=== PATIENT | female | born 1980 | race Caucasian/White ===

== ENCOUNTER → 2017-10-25 08:13 | Outpatient (CLI) | payer OTHER, SELFPAY ==
--- NOTE | 2017-10-25 08:19 | RAD_ITS ---
STUDY: X-RAY - RIGHT KNEE REASON FOR EXAM: Female, 36 years old. Pain following a twisting injury. TECHNIQUE: 3 view(s) of the knee. COMPARISON: None. FINDINGS: Normal visualized distal femur. Normal visualized proximal tibia and fibula. Normal proximal tibiofibular articulation. Normal medial femorotibial compartment. Normal lateral femorotibial compartment. Normal patellofemoral articulation. The soft tissue structures are unremarkable. RAD/Knee 3 Views IMPRESSION: Normal x-ray examination of the knee. Electronically Signed: Kumar Washington MD at 12:06 EST Tel [phone], Service support ,
== END ==
PROVIDERS: Family Provider Family Medicine; PCP Family Medicine; Visit Provider Physician Assistant
DX: S86.911A Strain of unspecified muscle(s) and tendon(s) at lower leg level, right leg, initial encounter (principal); X58.XXXA Exposure to other specified factors, initial encounter
CPT/HCPCS: 73562

== ENCOUNTER → 2017-11-06 09:07 | Outpatient (CLI) | payer OTHER, SELFPAY ==
--- NOTE | 2017-11-06 09:10 | MRI_ITS ---
STUDY: MRI RIGHT KNEE REASON FOR EXAM: Pain and decreased range of motion for 1.5 weeks, right knee injury. TECHNIQUE: Standardized fat and water weighted pulse sequences were obtained in all 3 orthogonal planes. COMPARISON: Radiographs 10/25/2017. FINDINGS: There is very mild intrasubstance myxoid degeneration of the posterior horn of the medial meniscus without discrete medial meniscal tear. Normal hyaline cartilage of the medial femorotibial compartment. Normal medial femoral condyle and tibial plateau. There is a mild sprain of the superficial fibers of the proximal medial collateral ligament (T2 coronal images 16, 17). Normal distal semimembranosus, gracilis and semitendinosus tendons. Normal lateral meniscus. Normal hyaline cartilage of the lateral femorotibial compartment. There is a small bone contusion of the posterior aspect of the lateral tibial plateau (T2 sagittal images 8-10). Normal proximal tibiofibular articulation. Normal lateral collateral (fibular) ligament. Normal popliteus tendon. Normal biceps femoris tendon. There is complete tear of the mid and anterior cruciate ligament (T2 sagittal image 13; series 8 image 12). Normal posterior cruciate ligament (PCL). Normal congruent patellofemoral articulation. Normal hyaline cartilage of the patellofemoral compartment. Normal medial and lateral patellar retinaculum. Normal quadriceps tendon. Normal patellar tendon. Normal Hoffa's fat pad. There is a moderate-sized joint effusion. There is a small popliteal cyst (T2 sagittal images 16-20). The otherwise visualized osseous structures are unremarkable. MRI/Lower Ext Joint Only (Routine) IMPRESSION: Anterior cruciate ligament tear. Mild medial collateral ligament sprain. Small bone contusion of the lateral tibial plateau. Joint effusion. Small popliteal cyst. Electronically Signed: Carlos Ladd MD at 10:17 EST Tel , Service support ,
== END ==
PROVIDERS: Family Provider Family Medicine; PCP Family Medicine; Visit Provider Physician Assistant
DX: S83.91XA Sprain of unspecified site of right knee, initial encounter (principal); X58.XXXA Exposure to other specified factors, initial encounter
CPT/HCPCS: 73721

== ENCOUNTER 2017-12-21 08:30 | Outpatient (RCR) | payer OTHER, SELFPAY ==
--- NOTE | 2017-11-19 07:37 | HP.PTEVAL_ITS ---
Patient's Visit Information EVENS RINCON is a 36 year old F referred to Physical Therapy by DO WILLIAM Plascencia with a diagnosis of R knee sprain. Date of Evaluation: 11/16/17 Physical Therapist: Alejandro Fowler - Visit Plan Frequency: 2-3x /Week Duration: 4-6 Weeks Plan: Start with ROM focus. Progress to core, hip, quad, HS strengthening. Once tolerating progress to functional strengthening as tolerated. May use vaso and IFC to aid with edema and pain tolerance. - Subjective Subjective: Pt. is here today for her initial evaluation with diagnosis of R knee sprain. She did have MRI that showed ACL tear and MCL sprain. Pt. reports she was at work and was doing some 180deg jumps and and landed and a felt pop. She had immediate had pain and edema. Pt. reports she has been going to work with use of a TROM brace, but unlocked and has been tolerating work at reduced pace and is limited with certain mobilities. Pt. has increased pain with walking , stairs, twisting, attempting to straighten out her leg. Decreased pain: ice and rest. Pt. denies N/T. Pt. is hopeful to increase strength in order to hopefully not need surgery. Pt. is to follow up with surgeon in 4 weeks to determine best course of action, but is to work on ROM and strength in order to have best possible outcomes. 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 Pt. enjoys running, snowboarding, and playing with her children and would like to get back to these activities without limitations. - Pain R knee Pain Intensity (Out of 10): 3 Pain Intensity Range: 1, 6 - Objective POSTURE: Pt. lacks TKE in stance of RLE. Pt. has slight increase in wt. shift to L side in stance. Normal hip height bilaterally. No valgus/varus positioning of bilateral knees. PALPATION: Pt. has mild increase in symptoms to medial knee joint line and at MCL. Pt. has marked edema throughout knee, non pitting. Pt. has tenderness at popliteal fossa on medial side. NEUROLOGICAL: Pt. has normal sensation throughout bilateral LEs. Pt. has 2+ achilles and patellar DTR bilaterally. Pt. is able to rise on heels and toes without LOB, but did report mild increase in posterior knee pain with raising on toes secondary to TKE on RLE. ROM: L knee- 0-0-140deg. R knee 0-5-107deg. Pt. reports increase in symptoms with end ranges of motions. Empyt end feels noted secondary to pain. Pt. has normal hip ROM bilaterally. MMT: LLE- ankle/knee 5/5 throughout; hip- flexiono 5/5, abd 4+/5, ext 5-/5. RLE- ankle 5/5 throughout; knee- ext 4/5 mild increase NW, flexion 4+/5; hip- flexion 4+/5, abd 4/5, ext 4/5. Core strength- fair. GAIT: Pt. ambulates without AD, but lack TKE on RLE and has reduced knee flexion during swing phase. Pt. has antalgic like pattern during R stance phase with R lateral trunk lean. STAIRS: Pt. is able to negotiate with 2 HR with reciprocal pattern, but has increased pain with descending and hip hiking on R side to achieve motion. Pt. has increased pain with loading RLE during descending. - Goals Goal 1:: Pt. to be I with HEP. Goal Time Frame: 4-6 Weeks Goal 2:: Pt. to have increased ROM of R knee to 0-0-135deg. allowing for increased tolerance to all functional mobility. Goal Time Frame: 4-6 Weeks Goal 3:: Pt. to have increased RLE and core strength by 1/2 grade of all effected musculature to reduce stress applied to R knee joint with all functional and work activities. Goal Time Frame: 4-6 Weeks Goal 4:: Pt. to have normalized gait pattern without reports of increased pain allowing for increased quality of life. Goal Time Frame: 4-6 Weeks Goal 5:: Pt. to resume all work and recreational activities without increase in symptoms. Goal Time Frame: 4-6 Weeks Goal 6:: Pt. to negotiate steps with 1 HR with reciprocal pattern without increase in symptoms. Goal Time Frame: 4-6 Weeks - Rehabilitation Potential Physical Therapy Diagnosis: Pt. has confirmed MRI stating R ACL tear. Pt. has signs and symptoms consistent with hypomobility, weakness, difficulty with gait , and increased pain after R ACL tear. Pt. would benefit from PT to increase ROM , strength, normalized gait pattern, decrease pain and progress back to functional activities. Rehabilitation Potential: Fair - Anticipated Interventions Patient/Client Instruction: Educate patient on: Condition, Plan of Care, Risk Factors, Benefits of Fitness Program For the Purpose of:: To improve safety, To improve health and function, To foster healthy habits, To improve decision making, To facilitate caregiver knowledge, To improve self management, To prevent re-injury, To improve ability to perform tasks related to life management, To improve tolerance to ADL's Therapeutic Exercise to Include: Strength training, Power training, Endurance training, Balance training, Postural training, Flexibilty training, Gait and locomotor training, Passive ROM, Active ROM For the Purpose of:: To decrease pain, To decrease swelling/inflammation, To increase ROM, To improve nutrient delivery to tissue, To increase oxygenation perfusion, To improve muscle performance and motor function, To improve ability of physical actions for home/community/work/leisure, To improve health of tissue , To decrease soft tissue restriction, To increase flexibility/ROM, To improve balance Manual Therapy Techniques to Include: Mobilization, Passive ROM, Functional dry needling, Soft tissue mobilization For the Purpose of:: To decrease pain, To decrease swelling/inflammation, To increase ROM, To improve nutrient delivery to tissue IF ES: Yes Cryotherapy (ice pack, ice massage): Yes Vasopneumatic device: Yes For the Purpose of:: To decrease pain, To decrease swelling/inflammation, To increase ROM, To improve nutrient delivery to tissue Thank you for the opportunity to evaluate your patient. For Medicare and Medicare HMO plans, please review the plan of care and approve it. It will need to be FAXED BACK to us at [phone] for Medicare purposes. Please let me know if there are questions or concerns regarding this plan of care. Physician Signature: Date:
--- NOTE | 2017-12-21 10:45 | HP.PTDCSUM ---
HP - PT D/C Summary It has been my pleasure to treat EVENS RINCON under orders from Moses Jordan DO, for the diagnosis of R knee sprain for a total of 12 visit(s). Discharge Date: 12/21/17 Please see the following information for a summary of their discharge status. - Subjective Subjective: Pt. reports I am feeling a lot better, but I can still tell that it is not right. Pt. reports continues report increased pain with squating, work activities, jumping, crouching, playing with children at work. - Pain R knee Pain Intensity (Out of 10): 0 - Overall Improvement % Improvement: 50 - Objective Objective/Function: ROM: R knee 0-0-132deg. MMT- 5/5 throughout R knee and hip musculature. Pt. has normalized gait pattern. Pt. is able to negotiate steps without HR, but does have increased pain with controlled eccentric lowering. Increased pain with squating greater than 90deg, lunge results in increased medial joint line pain. - Goals Goal 1:: Pt. to be I with HEP. Goal Progress: Goal Met Goal 2:: Pt. to have increased ROM of R knee to 0-0-135deg. allowing for increased tolerance to all functional mobility. Goal Progress: Progressing Goal 3:: Pt. to have increased RLE and core strength by 1/2 grade of all effected musculature to reduce stress applied to R knee joint with all functional and work activities. Goal Progress: Goal Met Goal 4:: Pt. to have normalized gait pattern without reports of increased pain allowing for increased quality of life. Goal Progress: Goal Met Goal 5:: Pt. to resume all work and recreational activities without increase in symptoms. Goal Progress: Progressing Goal 6:: Pt. to negotiate steps with 1 HR with reciprocal pattern without increase in symptoms. Goal Progress: Progressing - Plan Plan: Pt. to be DC to HEP and physician. Pt. contiunes to have difficulty with any agility life exercises/movements. She continues to have difficulty with work and recreational activities. Pt. had improved strength, but maintains some limitations. - D/C Information Discharge Comments: Pt. will be DC from PT at this point in time. Pt. has improved strength and ROM, but does have increased symptoms with deep squating, lunging, jumping, running and descending steps. 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 Pt. will be DC back to physician at this point in time. If there are questions or concerns regarding this patient's physical therapy, please feel free to call me at [phone]. Thank you for the referral of this patient. Sincerely, Alejandro Fowler
== END 2017-12-21 19:00 | disposition home or self-care (01) ==
LOC: PT 08:30
PROVIDERS: Family Provider Family Medicine; PCP Family Medicine; Visit Provider Orthopaedic Surgery
DX: S83.91XD Sprain of unspecified site of right knee, subsequent encounter (principal)
CPT/HCPCS: 97110; 97161

== ENCOUNTER 2018-07-18 07:00 | Outpatient (RCR) | payer OTHER, SELFPAY ==
--- NOTE | 2018-04-10 08:53 | HP.PTEVAL_ITS ---
Patient's Visit Information EVENS RINCON is a 37 year old F referred to Physical Therapy by Elizabeth Cruz with a diagnosis of R ACL reconstruction. Date of Evaluation: 04/08/18 Physical Therapist: Alejandro Fowler - Visit Plan Frequency: 3x /Week Duration: 6 Weeks Plan: Start with quad activation strengthening, progressing to CKC exercises ( no distal load with OKC exercises).Increased R knee ROM, decrease edema (may use vaso). May use stim if needed to increase quad activition. Progress to quad activation in CKC as tolerated. Progress per protocol (using shah as tolerated). - Subjective Subjective: Pt. is here today for her initial evaluation with diagnosis of R ACL reconstruction. DOS: 03/28/18. Pt. did report having a meniscal debridement and what she described as a microfracture procedure. Pt. arrives today with TROM brace locked in extension, but no crutches. Pt. reports being WBing as tolerated. Pt. reports overall having minimal pain, 1-2/10 pain with walking, no pain at rest. She has slight lateral numbness at lateral knee, expected. Pt. has been doing quad sets and using her CPM as indicated, upto 115deg of knee flexion currently. Pt. is also icing frequently. 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 Pt. is hopeful to get back to all recreational and work activities without limitations. - Pain R knee Pain Intensity (Out of 10): 2 Pain Intensity Range: 0, 2 - Objective POSTURE: Pt. has increased L lateral wt. shift in stance. Pt. does not achieve TKE in stnace on RLE. Pt. has normal LEODAN and noraml iliac crest heights. No valgus/varus postioning of R knee. PALPATION: Pt. has well healing incision. No redness or signs of infection. Pt. has negative lucas's sign in bilateral calves. Pt. has marked edema in RLE. GIRTH MEASUREMENTS: RLE 4in above patella- 44cm, mid pattella- 40cm, tibial tub- 38 1/2cm; LLE- 4 in above patella- 45 1/2 , mid patella- 36cm, tibial tub- 35 cm. NEUROLOGICAL: Pt. has normal sensation to RLE except for lateral knee, but is expected. Pt. has normal neuro testing otherwise. ROM: L knee 0-0-138deg. R knee- AROM 0-6-89deg; PROM 0-3-98deg. Pt. reports increased pain at both end ranges of PROM. Pt. has normal HS lenght bilaterally and normal hip ROM bilaterally. MMT: LLE- 5/5 throughout, except 4+ /5 hip abduction and extension. RLE- ankle 5/5 throughout; knee- flexion 4-/5, ext- Pt. has ~20-15 deg lag with SLR with 2 reps.; hip- flexion 3/5, abd 3/5, ext 4/5. GAIT: Pt. is able to ambulate without AD. Pt. is hesitant to ambulate without brace, reports being fearful of hyper ext (likly quad weakness). Pt. has minimal knee fleixon during swing phase, lacks TKE during stance phase; increased R lateral lean during R stance phase. STAIRS: completed with step to pattern, loading LLE only. - Goals Goal 1:: Pt. to be I with HEP. Goal Time Frame: 4-6 Weeks Goal 2:: Pt. to have decreased edema in R knee indicating by symmetrical patellar girth side to side. Goal Time Frame: 4-6 Weeks Goal 3:: Pt. to complete 20 SLR without quad lag indicating increased quad strength and stability. Goal Time Frame: 2-4 Weeks Goal 4:: Pt. to have incerased R knee ROM to 0-0-125deg without increase in pain. Goal Time Frame: 2-4 Weeks Goal 5:: Pt. to ambulate with normalized gait pattern without increase in symptoms and proper knee stability. Goal Time Frame: 4-6 Weeks Goal 6:: Pt. to sleep throughout the night without symptoms. Goal Time Frame: 2-4 Weeks - Rehabilitation Potential Physical Therapy Diagnosis: Pt. has signs and symptoms consistent with R ACL reconstruction and subsequent R knee hypombility, RLE weakness, increased pain, and difficulty with gait. Pt. would benefit from PT to work on above limitations eventually progressing to functional strength and back to work activities. Rehabilitation Potential: Excellent - Anticipated Interventions Patient/Client Instruction: Educate patient on: Condition, Plan of Care, Risk Factors, Benefits of Fitness Program For the Purpose of:: To assume or resume ADL's, To reduce risk of recurrence, To improve safety, To improve health and function, To foster healthy habits, To improve decision making, To facilitate caregiver knowledge, To improve self management, To prevent re-injury, To improve ability to perform tasks related to life management, To improve tolerance to ADL's Therapeutic Exercise to Include: Strength training, Power training, Postural training, Flexibilty training, Gait and locomotor training, Passive ROM, Active ROM, Dynamic Lumbar Stabilization For the Purpose of:: To decrease pain, To increase ROM, To improve nutrient delivery to tissue, To increase oxygenation perfusion, To improve muscle performance and motor function, To improve ability to perform ADL's, To decrease soft tissue restriction, To increase flexibility/ROM, To improve endurance, To improve balance, To improve safety with gait IF ES: Yes Cryotherapy (ice pack, ice massage): Yes Vasopneumatic device: Yes For the Purpose of:: To decrease pain, To decrease swelling/inflammation, To increase ROM Thank you for the opportunity to evaluate your patient. For Medicare and Medicare HMO plans, please review the plan of care and approve it. It will need to be FAXED BACK to us at [phone] for Medicare purposes. Please let me know if there are questions or concerns regarding this plan of care. Physician Signature: Date:
--- NOTE | 2018-07-18 08:42 | HP.PTDCSUM_ITS ---
HP - PT D/C Summary It has been my pleasure to treat EVENS RINCON under orders from Elizabeth Cruz, for the diagnosis of R ACL reconstruction for a total of 40 visit(s). Discharge Date: 07/18/18 Please see the following information for a summary of their discharge status. - Subjective Subjective: Pt. reports I am doing really well. Pt. reports being 85% better overall. She is able to run in straight planes without issues. Pt. reports being HEP compliant. Pt. is back to work without issues. She reports no pain, except some mild discomfort with eccentric single leg loading. Medial joint soreness is where she has her tenderness. - Pain R knee Pain Intensity (Out of 10): 0 - Overall Improvement % Improvement: 85 - Objective Objective/Function: ROM- R knee 0-0-138deg no pain. MMT- 5/5 throughout, except knee ext 5-/5. hip 5/5 throughout. GAIT: Pt. has normal gait pattern. Pt is able to run without pain, but does have slight antalgic pattern during end of R stance phase prior to toe off. STAIRS: normal without issues. Jumping: Pt. is able to complete depth jumps for distance and height without issues. Pt. is less confident with SL landing. Pt. has 22 inch different with SL hop test. SQUAT- normal mechanics without wt. shifting. symmetrical stance. Pt. reprots no pain. - Goals Goal 1:: Pt. to be I with HEP. Goal Progress: Goal Met Goal 2:: Pt. to have decreased edema in R knee indicating by symmetrical patellar girth side to side. Goal Progress: Goal Met Goal 3:: Pt. to complete 20 SLR without quad lag indicating increased quad strength and stability. Goal Progress: Goal Met Goal 4:: Pt. to have incerased R knee ROM to 0-0-125deg without increase in pain. Goal Progress: Goal Met Goal 5:: Pt. to ambulate with normalized gait pattern without increase in symptoms and proper knee stability. Goal Progress: Goal Met Goal 6:: Pt. to sleep throughout the night without symptoms. Goal Progress: Goal Met - Plan Plan: Pt. to be DC to HEP at this point in time. - D/C Information Discharge Comments: Pt. has met all goals with PT. Pt. is back to work without issues. She is running in straight planes without issues and has full strenght of her RLE, except 5-/5 with knee ext. Pt. is integrating light plyometric activities as tolerated. Pt. has great squat and jump mechanics. Pt. is to continue to work on eccentric strengthening of her quad and to increased glute stability with plyo exercises. Pt. did very well and will be DC from PT at this point in time. If there are questions or concerns regarding this patient's physical therapy, pl maurizio feel free to call me at [phone]. Thank you for the referral of this patient. Sincerely, Alejandro Fowler
== END 2018-07-18 19:00 | disposition home or self-care (01) ==
LOC: PT 07:00
PROVIDERS: Family Provider Family Medicine; PCP Family Medicine
DX: S83.511D Sprain of anterior cruciate ligament of right knee, subsequent encounter (principal)
CPT/HCPCS: 97016; 97110; 97140; 97161; 97530

== ENCOUNTER → 2020-05-27 13:48 | Outpatient (CLI) | payer OTHER, SELFPAY ==
[2020-05-27 16:43] LABS: CRP < 2.90 mg/L (0.0-3.0); Rheumatoid Factor < 10.0 IU/mL (<15)
[2020-05-27 17:00] LABS: Erythrocyte Sedimentation Rate < 1 mm/hr (0-20)
[2020-05-30 20:37] LABS: CCP IgG Antibodies 3 units (0-19)
[2020-05-31 20:56] LABS: ANTINUCLEAR ANTIBODIES DIRECT Negative (Negative)
== END ==
PROVIDERS: PCP Family Medicine; Visit Provider Family Medicine
DX: M79.10 Myalgia, unspecified site (principal); M25.50 Pain in unspecified joint
CPT/HCPCS: 36415; 85652; 86038; 86140; 86200; 86225; 86235; 86431

== ENCOUNTER 2020-08-17 13:37 | Outpatient (RCR) | payer OTHER, SELFPAY | END 2020-09-09 23:59 | LOC: EMPH 13:37 | PROVIDERS: PCP Family Medicine; Referring Provider Family Medicine Geriatric Medicine; Visit Provider Family Medicine Geriatric Medicine | DX: Z03.818 Encounter for observation for suspected exposure to other biological agents ruled out (principal) | CPT/HCPCS: 87426 ==

== ENCOUNTER 2020-11-26 09:10 | Outpatient (RCR) | payer OTHER, SELFPAY | END 2020-12-08 23:59 | LOC: EMPH 09:10 | PROVIDERS: PCP Family Medicine; Referring Provider Family Medicine Geriatric Medicine; Visit Provider Family Medicine Geriatric Medicine | DX: Z03.818 Encounter for observation for suspected exposure to other biological agents ruled out (principal) | CPT/HCPCS: 87426 ==

== ENCOUNTER 2021-09-01 14:15 | Outpatient (RCR) | payer OTHER, SELFPAY | END 2021-09-09 23:59 | LOC: EMPH 14:15 | PROVIDERS: PCP Family Medicine; Referring Provider Family Medicine Geriatric Medicine; Visit Provider Family Medicine Geriatric Medicine | DX: Z03.818 Encounter for observation for suspected exposure to other biological agents ruled out (principal) | CPT/HCPCS: 87426 ==

== ENCOUNTER → 2022-05-29 | Outpatient (CLI) | payer OTHER, SELFPAY ==
[2022-06-06 10:39] LABS: HPV APTIMA, High Risk Negative (Negative)
== END | disposition home or self-care (01) ==
LOC: LABSPEC 05-30 06:21
PROVIDERS: PCP Family Medicine; Visit Provider Nurse Practitioner Women's Health
DX: Z01.419 Encounter for gynecological examination (general) (routine) without abnormal findings (principal)
CPT/HCPCS: 87624; 88175; G0145

== ENCOUNTER → 2022-06-08 | Outpatient (CLI) | payer OTHER, SELFPAY ==
--- NOTE | 2022-06-08 11:49 | BI_ITS ---
MAMMOGRAPHY - BILATERAL SCREENING REASON FOR EXAM: Female, 41 years old. Routine annual screening examination. PERTINENT HISTORY: Non-contributory. TECHNIQUE: Digital bilateral breast eliseo (3D mammographic acquisition) in the CC and MLO projections. 2-D mediolateral oblique (MLO) and craniocaudad (CC) views of both breasts were obtained. CAD: Full Field Digital Mammography with Computer Added Detection was performed. COMPARISON: None. Baseline examination. FINDINGS: Breast Composition: The breasts are heterogeneously dense, which may obscure small masses. There are no dominant masses or suspicious calcifications. I suspect a 7 mm x 7 mm well-defined nodule in the deep central aspect of the left breast. Correlation with ultrasound is recommended. No other significant abnormalities are identified. BI/SCRN MAMM (CAD)W/ELISEO BILAT IMPRESSION: I suspect a 7 mm x 7 mm well-defined nodule in the deep central aspect of the left breast. Correlation with ultrasound is recommended. ASSESSMENT CATEGORY: BIRADS Category 0: Incomplete. Need additional imaging evaluation. A letter regarding these results will be sent to the patient by the facility within 30 days. Approximately 10% of breast cancers are not detected by mammography. A normal mammogram should not delay biopsy of a clinically suspicious abnormality. [id number] Electronically Signed: Kumar Washington MD at 12:48 EDT ,
== END | disposition home or self-care (01) ==
LOC: OPBI 11:48
PROVIDERS: PCP Family Medicine; Visit Provider Nurse Practitioner Women's Health
DX: Z12.31 Encounter for screening mammogram for malignant neoplasm of breast (principal)
CPT/HCPCS: 77063; 77067

== ENCOUNTER → 2022-06-15 | Outpatient (CLI) | payer OTHER, SELFPAY ==
--- NOTE | 2022-06-15 12:17 | US_ITS ---
STUDY: ULTRASOUND BREAST - LEFT REASON FOR EXAM: Female, 41 years old. Abnormal screening mammogram. TECHNIQUE: Axial and longitudinal images of the LEFT breast were performed with a high resolution ultrasound transducer. # OF IMAGES: 8 COMPARISON: Comparison is made with prior examination dated 06/08/2022. FINDINGS: LEFT Breast: The mammographic and amount to correspond to a 6 mm x 3 mm x 7 mm cyst at the 4 o''clock position of the breast at 3 cm from the nipple. US/Breast Limited Unilateral IMPRESSION: The mammographic abnormality corresponds to a 6 mm x 7 mm x 3 mm cyst at the 4 o''clock position of the breast at 3 cm from the nipple. ASSESSMENT CATEGORY: BIRADS Category 2: Benign. A letter regarding these results will be sent to the patient by the facility within 30 days. Electronically Signed: Kumar Washington MD at 9:41 EDT ,
== END | disposition home or self-care (01) ==
LOC: OPUS 12:16
PROVIDERS: PCP Family Medicine; Visit Provider Nurse Practitioner Women's Health
DX: R92.8 Other abnormal and inconclusive findings on diagnostic imaging of breast (principal)
CPT/HCPCS: 76642

== ENCOUNTER → 2023-04-30 | Outpatient (CLI) | payer OTHER, SELFPAY ==
--- NOTE | 2023-04-30 15:10 | RAD_ITS ---
EXAM: XR LEFT KNEE COMPLETE, 4 OR MORE VIEWS CLINICAL INDICATION: PAIN TECHNIQUE: Four or more views of the left knee. COMPARISON: No relevant prior studies available. FINDINGS: BONES/JOINTS: Unremarkable. No acute fracture. No subluxation. Normal alignment. Preservation of the joint space. No sclerotic or destructive changes observed. SOFT TISSUES: Unremarkable. No soft tissue swelling or gas. No radiopaque foreign body. RAD/Knee 4 or More Views IMPRESSION: Negative left knee x-rays. Electronically Signed: Trevor Kwok MD at 23:27 EDT ,
== END | disposition home or self-care (01) ==
PROVIDERS: PCP Family Medicine; Referring Provider Family Medicine; Visit Provider Family Medicine
DX: M25.562 Pain in left knee (principal)
CPT/HCPCS: 73564

== ENCOUNTER → 2023-06-29 | Outpatient (CLI) | payer OTHER, SELFPAY ==
--- NOTE | 2023-06-29 10:11 | BI_ITS ---
MAMMOGRAPHY - BILATERAL SCREENING REASON FOR EXAM: Female, 42 years old. Routine annual screening examination. PERTINENT HISTORY: Non-contributory. TECHNIQUE: Digital bilateral breast eliseo (3D mammographic acquisition) in the CC and MLO projections. 2-D mediolateral oblique (MLO) and craniocaudad (CC) views of both breasts were obtained. CAD: Full Field Digital Mammography with Computer Added Detection was performed. COMPARISON: Comparison is made with prior study dated June 08, 2022. FINDINGS: Breast Composition: The breasts are heterogeneously dense, which may obscure small masses. There are no dominant masses or suspicious calcifications. Stable 7 mm x 7 mm well-defined nodule in the deep central aspect of the left breast. Prior sonogram demonstrated this nodule to be a small cyst. No other significant abnormalities are identified. There has been no significant change since the prior study. BI/SCRN MAMM (CAD)W/ELISEO BILAT IMPRESSION: Stable bilateral screening mammogram. Yearly follow-up mammogram recommended. (A) ASSESSMENT CATEGORY: BIRADS Category 2: Benign. A letter regarding these results will be sent to the patient by the facility within 30 days. Approximately 10% of breast cancers are not detected by mammography. A normal mammogram should not delay biopsy of a clinically suspicious abnormality. [id number] Electronically Signed: Kumar Washington MD at 11:11 EDT ,
== END | disposition home or self-care (01) ==
LOC: OPBI 10:10
PROVIDERS: PCP Family Medicine; Referring Provider Nurse Practitioner Women's Health; Visit Provider Nurse Practitioner Women's Health
DX: Z12.31 Encounter for screening mammogram for malignant neoplasm of breast (principal)
CPT/HCPCS: 77063; 77067

== ENCOUNTER → 2024-06-30 | Outpatient (CLI) | payer OTHER, SELFPAY ==
--- NOTE | 2024-06-30 07:46 | BI_ITS ---
MAMMOGRAPHY - BILATERAL SCREENING REASON FOR EXAM: Female, 43 years old. Routine annual screening examination. PERTINENT HISTORY: Non-contributory. TECHNIQUE: Digital bilateral breast eliseo (3D mammographic acquisition) in the CC and MLO projections. 2-D mediolateral oblique (MLO) and craniocaudad (CC) views of both breasts were obtained. CAD: Full Field Digital Mammography with Computer Added Detection was performed. COMPARISON: Comparison is made with prior study June 29, 2023 and June 08, 2022. FINDINGS: Breast Composition: The breasts are heterogeneously dense, which may obscure small masses. There is a 6.9 mm x 7.1 mm well-defined nodule in the central the aspect of the left breast. There is also evidence of a 6.9 mm x 4.1 mm well-defined nodule in the anterior lower medial aspect of the left breast. Correlation with ultrasound is recommended. No other significant abnormalities are identified. BI/SCRN MAMM (CAD)W/ELISEO BILAT IMPRESSION: There are 2 well-defined nodules in the left breast as described. Correlation with ultrasound recommended. ASSESSMENT CATEGORY: BIRADS Category 0: Incomplete. Need additional imaging evaluation. A letter regarding these results will be sent to the patient by the facility within 30 days. Approximately 10% of breast cancers are not detected by mammography. A normal mammogram should not delay biopsy of a clinically suspicious abnormality. [id number] Electronically Signed: Kumar Washington MD at 11:08 EDT ,
--- OUTSIDE RECORDS SUMMARY | 2024-06-30 07:49 | XMS RPT_ITS | CCD ---
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 Role Phone Tin LIAO, Sophia Pham Unavailable [phone] Allergies Allergy Classification Reported Allergen(s) Allergy Type Date of Onset Reaction(s) Facility (1 source) penicillin v Drug Allergy 05-21-2017 [facility] [place] Medications Completed/Discontinued Medications Medication Drug Class(es) Dates Sig (Normalized) Sig (Original) levonorgestrel 0.577492 mg/hr intrauterine system (1 source) Progestin, Progestin-containi ng Intrauterine Device Start: 07-02-2017 MIRENA (52 MG) 20 MCG/24HR IUD LEVONORGESTREL [id number] Sophia Castle MD Problems Active Problems Problem Classification Problem Date Documented Date Episodic/Chronic Other endocrine disorders (1 source) Polycystic ovaries; Translations: [Polycystic ovarian syndrome] Onset: 05-21-2017 05-21-2017 Chronic Other female genital disorders (1 source) Abnormal uterine and vaginal bleeding, unspecified; Translations: [Abnormal uterine and vaginal bleeding, unspecified] Onset: 05-21-2017 05-21-2017 Chronic Unclassified (1 source) Screening for malignant neoplasm of cervix ; Translations: [Encounter for screening for malignant neoplasm of cervix] Onset: 05-21-2017 05-21-2017 Unclassified (1 source) Gynecologic examination ; Translations: [Encounter for gynecological examination (general) (routine) with abnormal findings] Onset: 05-21-2017 05-21-2017 Past or Other Problems Problem Classification Problem Date Documented Date Episodic/Chronic Immunizations and screening for infectious disease (1 source) Encounter for screening for human papillomavirus (HPV); Translations: [Encounter for screening for human papillomavirus (HPV)] Onset: 05-21-2017 05-21-2017 Episodic Results Test Name Value Interpretation Reference Range Facility Office Visit: IUD Insertiono n 07-02-2017 Documentation of current medications (procedure) Done Invalid Interpretation Code [facility] [place] Fall risk assessment No Invalid Interpretation Code [facility] Tobacco smoking status NHIS Never Invalid Interpretation Code [facility] Tobacco use CPHS Never smoker Invalid Interpretation Code [facility] Lab Report: PAP I-G HPV Hi R iskon 05-25-2017 HPV HC,HGH RISK Negative Invalid Interpretation Code Negative [facility] Lab Report: CBC, Employeeon 05-23-2017 Absolute Neut 2.0 X10 3/UL Invalid Interpretation Code 2.0-7.7 [facility] Basophils/100 WBC Auto (Bld) 0.3 % Invalid Interpretation Code 0-1 [facility] Eosinophils/100 leukocytes 1.3 % Invalid Interpretation Code 0-5 [facility] Erythrocyte distribution width Auto Ratio (RBC) 13.2 % Invalid Interpretation Code 11.6-14.6 [facility] Erythrocytes (RBC) 4.73 10*6/uL Invalid Interpretation Code 4.2-5.4 [facility] Hematocrit (HCT) 38.5 % Invalid Interpretation Code 37-47 [facility] Hemoglobin mass conc (Bld) 13.7 g/dL Invalid Interpretation Code 12.0-15.0 [facility] Lymphocytes 1.21 X10 3/UL Invalid Interpretation Code 0.83-4.51 [facility] Lymphocytes/100 leukocytes 32.4 % Invalid Interpretation Code 19-41 [facility] MCH 29.0 pg Invalid Interpretation Code 27.0-32.0 [facility] MCHC mass conc (RBC) 35.6 G/GL Invalid Interpretation Code 32-36 [facility] MCV 81.4 fL Invalid Interpretation Code 81-99 [facility] Monocytes/100 leukocytes 11.5 % High 0-10 [facility] Neutrophils/100 WBC Auto (Bld) 54.5 % Invalid Interpretation Code 47-70 [facility] Platelets 238 10*3/mm3 Invalid Interpretation Code 150-450 [facility] PMV by Vito 10.0 fL Invalid Interpretation Code 6.2-12.0 [facility] RDW SD 38.0 fL Invalid Interpretation Code 35.1-43.9 [facility] WBC (Leukocytes) 3.7 10*3/uL Low 4.4-11.0 [facility] [place] Lab Report: Employee Profile on 05-23-2017 Alanine aminotransferase (ALT) 19 U/L Invalid Interpretation Code 12-78 [facility] [place] Albumin 3.6 g/dL Invalid Interpretation Code 3.4-5.0 [facility] [place] Albumin/Globulin Ratio 1.2 {ratio} Invalid Interpretation Code 0.9-2.4 [facility] [place] Alkaline phosphatase (ALP) 44 U/L Low 45-117 [facility] [place] Anion gap 9 mmol/L Invalid Interpretation Code 5-15 [facility] [place] Aspartate aminotransferase (AST) 12 U/L Low 15-37 [facility] [place] Bilirubin (direct) 0.17 mg/dL Invalid Interpretation Code 0.00-0.30 [facility] [place] Bilirubin (total) 0.70 mg/dL Invalid Interpretation Code 0.20-1.00 [facility] [place] BUN/Creatinine Ratio 17.2 RATIO Invalid Interpretation Code 10-20 [facility] [place] Calcium 8.1 mg/dL Low 8.5-10.1 [facility] [place] Chloride 106 mmol/L Invalid Interpretation Code 98-107 [facility] [place] Cholesterol 147 mg/dL Invalid Interpretation Code 200 [facility] [place] CO2 28.0 mmol/L Invalid Interpretation Code 21.0-32.0 [facility] [place] Creatinine 0.76 mg/dL Invalid Interpretation Code 0.55-1.02 [facility] [place] eGFR (non-black) 112 mL/min/{1.73_m 2} Invalid Interpretation Code >60 [facility] [place] eGFR (non-black) 92 mL/min/{1.73_m 2} Invalid Interpretation Code >60 [facility] [place] Globulin 2.9 g/dL Invalid Interpretation Code 2.3-3.5 [facility] [place] Glucose mass conc 88 mg/dL Invalid Interpretation Code 70-110 [facility] [place] HDL Cholesterol 64 mg/dL Invalid Interpretation Code [facility] [place] LDH 175 U/L Invalid Interpretation Code 84-246 [facility] [place] LDL Cholesterol 71 mg/dL Invalid Interpretation Code 0-130 [facility] [place] PHOS 2.8 mg/dL Invalid Interpretation Code 2.5-4.9 [facility] [place] Potassium molar conc 3.9 mmol/L Invalid Interpretation Code 3.5-5.1 [facility] [place] Protein 6.5 g/dL Invalid Interpretation Code 6.4-8.2 [facility] [place] Sodium 143 mmol/L Invalid Interpretation Code 136-145 [facility] Triglyceride 59 mg/dL Invalid Interpretation Code [facility] Urate 5.5 mg/dL Invalid Interpretation Code 2.6-6.0 [facility] Urea nitrogen 13 mg/dL Invalid Interpretation Code 7-18 [facility] very low density lipoproteins 12 mg/dL Invalid Interpretation Code 5-40 [facility] Lab Report: Urinalysis, Empl oyeeon 05-23-2017 Bilirubin Ql (U) Negative Invalid Interpretation Code Negative [facility] NITRITE UR Negative Invalid Interpretation Code Negative [facility] OCCULT BLOOD-UR 10 High Negative [facility] [place] specific gravity, urine 1.015 Invalid Interpretation Code 1.002-1.030 [facility] Urine, clarity Sl. Cloudy Invalid Interpretation Code Clear [facility] [place] Urine, color Yellow Invalid Interpretation Code Yellow [facility] Urine, glucose presence Normal mg/dl Invalid Interpretation Code Normal [facility] Urine, ketones presence Negative Invalid Interpretation Code Negative [facility] [place] Urine, leukocyte esterase presence Negative Invalid Interpretation Code Negative [facility] Urine, pH 6.0 [pH] Invalid Interpretation Code 5.0 - 8.0 [facility] Urine, protein 15 mg/dL High Negative [facility] [place] UROBILI Normal mg/dl Invalid Interpretation Code Normal [facility] Office Visit: new annualon 0 05-21-2017 Hemoglobin presence in stool not done Invalid Interpretation Code [facility] [place] Office Visit: IUD Insertiono n 06-10-2016 General categories [Interpretation] of Cervical or vaginal smear or scraping by Cyto stain Normal Invalid Interpretation Code [facility] Vital Signs Date Time Vital Sign Value Performing Clinician Oracioi molly 07-02-2017 09:040 BMI (Body Mass Index) 27.77 kg/m2 Sophia Castle MD [facility] 07-02-2017 09:090400 Body Temperature 98.2 [degF] Sophia Castle MD [facility] [place] 07-02-2017 09:09-0400 BP Diastolic 68 mm[Hg] Sophia Castle MD [facility] [place] 07-02-2017 09:09-0400 BP Systolic 106 mm[Hg] Sophia Castle MD [facility] [place] 07-02-2017 09:090400 Height 162.56 cm Sophia Castle MD [facility] [place] 07-02-2017 09:090400 Pulse (Heart Rate) 70 /min Sophia Castle MD [facility] [place] 07-02-2017 09:090400 Respiratory Rate 16 /min Sophia Castle MD [facility] [place] 07-02-2017 09:090400 Weight 73.39 kg Sophia Castle MD [facility] [place] Procedures Date Procedure Procedure Detail Performing Clinician Start: 07-02-2017 End: 07-02-2017 Insertion intrauterine device iud Sophia Castle MD Work Phone: Start: 07-02-2017 End: 07-02-2017 Mirena device, 52 mg Sophia grimm MD Work Phone: Plan of Treatment Date Care Activity Detail Author Start: 08-13-2017 End: 08-13-2017 Appointment Appointment [facility] Start: 05-21-2017 End: 05-21-2017 *CBC with Differential *CBC with Differential [facility] Start: 05-21-2017 End: 05-21-2017 Dehydroepiandrosterone sulfate (DHEA-S) *DHEA - DHEA-S (Dehydroepiandrostero ne Sullfate) [facility] [place] Start: 05-21-2017 End: 05-21-2017 Glucose mass conc *Glucose, Fasting [facility] [place] Start: 05-21-2017 End: 05-21-2017 Lipid panel [AGGREGATE] *Lipid Profile [facility] Start: 05-21-2017 End: 05-21-2017 Testosterone Free [Mass/volume] in Serum or Plasma *TESTOF Testosterone Free [facility] [place] Start: 05-21-2017 End: 05-21-2017 Thyroid stimulating hormone (TSH) *TSH [facility] [place] Start: 05-21-2017 End: 05-21-2017 Us pelvic nonobstetric real-time image complete US Pelvis [facility] [place] Start: 05-21-2017 End: 05-21-2017 Us transvaginal US Transvaginal [facility] [place] Additional Source Comments FOR RECORDS PERTAINING TO PATIENTS WHO ARE OR HAVE BEEN ENROLLED IN A CHEMICAL DEPENDENCY/SUBSTANCEABUSE PROGRAM, SOME INFORMATION MAY BE OMITTED. This clinical summary was aggregated from multiple sources. Caution should be exercised in using it in the provision of clinical care. This summary normalizes information from multiple sources, and as a consequence, information in this document may materially change the coding, format and clinical context of patient data. In addition, data may be omitted in some cases. CLINICAL DECISIONS SHOULD BE BASED ON THE PRIMARY CLINICAL RECORDS. [email or web address] [facility]. provides no warranty or guarantee of the accuracy or completeness of information in this document.
== END | disposition home or self-care (01) ==
LOC: OPBI 07:46
PROVIDERS: PCP Family Medicine; Referring Provider Nurse Practitioner Women's Health; Visit Provider Nurse Practitioner Women's Health
DX: Z12.31 Encounter for screening mammogram for malignant neoplasm of breast (principal)
CPT/HCPCS: 77063; 77067

== ENCOUNTER → 2024-07-03 | Outpatient (CLI) | payer OTHER, SELFPAY ==
--- NOTE | 2024-07-03 07:41 | US_ITS ---
STUDY: ULTRASOUND BREAST - LEFT REASON FOR EXAM: Female, 43 years old. Abnormal screening mammogram. TECHNIQUE: Axial and longitudinal images of the LEFT breast were performed with a high resolution ultrasound transducer. # OF IMAGES: 57 COMPARISON: Comparison is made with prior mammogram dated June 30, 2024. FINDINGS: LEFT Breast: The upper and lateral aspects of the left breast is examined with ultrasound. The mammographic abnormality corresponds to an 8 mm x 8 mm x 3 mm well-defined hypoechoic nodule 4:00 position of the breast at 2 cm from the nipple. A similar hypoechoic nodule measuring 6 mm x 6 mm x 3 mm is seen at the 2:00 position of the breast at 6 cm from the nipple. These may represent small fibroadenomas. There is also evidence of a 5 mm x 5 mm x 2 mm cyst at the 10:00 position in the breast for 6 cm from the nipple. US/Breast Limited Unilateral IMPRESSION: There are 2 subcentimeter hypoechoic solid nodules at 2:00 and 4:00 position the breast as described. 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 Follow-up sonogram in 6 months recommended. ASSESSMENT CATEGORY: BIRADS Category 3: Probably Benign - Short-Interval Follow-up Suggested. A letter regarding these results will be sent to the patient by the facility within 30 days. Electronically Signed: Kumar Washington MD at 12:25 EDT ,
--- OUTSIDE RECORDS SUMMARY | 2024-07-03 07:46 | XMS RPT_ITS | CCD ---
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 Role Phone Tin LIAO, Sophia Pham Unavailable Allergies Allergy Classification Reported Allergen(s) Allergy Type Date of Onset Reaction(s) Facility (1 source) penicillin v Drug Allergy 05-21-2017 [facility] [place] Medications Completed/Discontinued Medications Medication Drug Class(es) Dates Sig (Normalized) Sig (Original) levonorgestrel 0.830231 mg/hr intrauterine system (1 source) Progestin, Progestin-containi ng Intrauterine Device Start: 07-02-2017 MIRENA (52 MG) 20 MCG/24HR IUD LEVONORGESTREL [id number] Sophia Castle MD Problems Active Problems Problem [...] current medications (procedure) Done Invalid Interpretation Code [facility] [place] Fall risk assessment No Invalid Interpretation Code [facility] Tobacco smoking status NHIS Never Invalid Interpretation Code [facility] Tobacco use CPHS Never smoker Invalid Interpretation Code [facility] Lab Report: PAP I-G HPV Hi R iskon 05-25-2017 HPV HC,HGH RISK Negative Invalid Interpretation Code Negative [facility] Lab Report: CBC, Employeeon 05-23-2017 Absolute Neut 2.0 X10 3/UL Invalid Interpretation Code 2.0-7.7 [facility] Basophils/100 WBC Auto (Bld) 0.3 % Invalid Interpretation Code 0-1 [facility] Eosinophils/100 leukocytes 1.3 % Invalid Interpretation Code 0-5 [facility] Erythrocyte distribution width Auto Ratio (RBC) 13.2 % Invalid Interpretation Code 11.6-14.6 [facility] Erythrocytes (RBC) 4.73 10*6/uL Invalid Interpretation Code 4.2-5.4 [facility] Hematocrit (HCT) 38.5 % Invalid Interpretation Code 37-47 [facility] Hemoglobin mass conc (Bld) 13.7 g/dL Invalid Interpretation Code 12.0-15.0 [facility] Lymphocytes 1.21 X10 3/UL Invalid Interpretation Code 0.83-4.51 [facility] Lymphocytes/100 leukocytes 32.4 % Invalid Interpretation Code 19-41 [facility] MCH 29.0 pg Invalid Interpretation Code 27.0-32.0 [facility] MCHC mass conc (RBC) 35.6 G/GL Invalid Interpretation Code 32-36 [facility] MCV 81.4 fL Invalid Interpretation Code 81-99 [facility] Monocytes/100 leukocytes 11.5 % High 0-10 [facility] Neutrophils/100 WBC Auto (Bld) 54.5 % Invalid Interpretation Code 47-70 [facility] Platelets 238 10*3/mm3 Invalid Interpretation Code 150-450 [facility] PMV by Viot 10.0 fL Invalid Interpretation Code 6.2-12.0 [facility] RDW SD 38.0 fL Invalid Interpretation Code 35.1-43.9 [facility] WBC (Leukocytes) 3.7 10*3/uL Low 4.4-11.0 [facility] [place] Lab Report: Employee Profile on 05-23-2017 Alanine aminotransferase (ALT) 19 U/L Invalid Interpretation Code 12-78 [facility] [place] Albumin 3.6 g/dL Invalid Interpretation Code 3.4-5.0 [facility] [place] Albumin/Globulin Ratio 1.2 {ratio} Invalid Interpretation Code 0.9-2.4 [facility] [place] Alkaline phosphatase (ALP) 44 U/L Low 45-117 [facility] [place] Anion gap 9 mmol/L Invalid Interpretation Code 5-15 [facility] [place] Aspartate aminotransferase (AST) 12 U/L Low 15-37 [facility] [place] Bilirubin (direct) 0.17 mg/dL Invalid Interpretation Code 0.00-0.30 [facility] [place] Bilirubin (total) 0.70 mg/dL Invalid Interpretation Code 0.20-1.00 [facility] [place] BUN/Creatinine Ratio 17.2 RATIO Invalid Interpretation Code 10-20 [facility] [place] Calcium 8.1 mg/dL Low 8.5-10.1 [facility] [place] Chloride 106 mmol/L Invalid Interpretation Code 98-107 [facility] [place] Cholesterol 147 mg/dL Invalid Interpretation Code 200 [facility] [place] CO2 28.0 mmol/L Invalid Interpretation Code 21.0-32.0 [facility] [place] Creatinine 0.76 mg/dL Invalid Interpretation Code 0.55-1.02 [facility] [place] eGFR (non-black) 112 mL/min/{1.73_m 2} Invalid Interpretation Code >60 [facility] [place] eGFR (non-black) 92 mL/min/{1.73_m 2} Invalid Interpretation Code >60 [facility] [place] Globulin 2.9 g/dL Invalid Interpretation Code 2.3-3.5 [facility] [place] Glucose mass conc 88 mg/dL Invalid Interpretation Code 70-110 [facility] [place] HDL Cholesterol 64 mg/dL Invalid Interpretation Code [facility] [place] LDH 175 U/L Invalid Interpretation Code 84-246 [facility] [place] LDL Cholesterol 71 mg/dL Invalid Interpretation Code 0-130 [facility] [place] PHOS 2.8 mg/dL Invalid Interpretation Code 2.5-4.9 [facility] [place] Potassium molar conc 3.9 mmol/L Invalid Interpretation Code 3.5-5.1 [facility] [place] Protein 6.5 g/dL Invalid Interpretation Code 6.4-8.2 [facility] [place] Sodium 143 mmol/L Invalid Interpretation Code 136-145 [facility] Triglyceride 59 mg/dL Invalid Interpretation Code [facility] Urate 5.5 mg/dL Invalid Interpretation Code 2.6-6.0 [facility] Urea nitrogen 13 mg/dL Invalid Interpretation Code 7-18 [facility] very low density lipoproteins 12 mg/dL Invalid Interpretation Code 5-40 [facility] Lab Report: Urinalysis, Empl oyeeon 05-23-2017 Bilirubin Ql (U) Negative Invalid Interpretation Code Negative [facility] NITRITE UR Negative Invalid Interpretation Code Negative [facility] OCCULT BLOOD-UR 10 High Negative [facility] [place] specific gravity, urine 1.015 Invalid Interpretation Code 1.002-1.030 [facility] Urine, clarity Sl. Cloudy Invalid Interpretation Code Clear [facility] [place] Urine, color Yellow Invalid Interpretation Code Yellow [facility] Urine, glucose presence Normal mg/dl Invalid Interpretation Code Normal [facility] Urine, ketones presence Negative Invalid Interpretation Code Negative [facility] [place] Urine, leukocyte esterase presence Negative Invalid Interpretation Code Negative [facility] Urine, pH 6.0 [pH] Invalid Interpretation Code 5.0 - 8.0 [facility] Urine, protein 15 mg/dL High Negative [facility] [place] UROBILI Normal mg/dl Invalid Interpretation Code Normal [facility] Office Visit: new annualon 0 05-21-2017 Hemoglobin presence in stool not done Invalid Interpretation Code [facility] [place] Office Visit: IUD Insertiono n 06-10-2016 General categories [Interpretation] of Cervical or vaginal smear or scraping by Cyto stain Normal Invalid Interpretation Code [facility] Vital Signs Date Time Vital Sign Value Performing Clinician Oracioi molly 07-02-2017 09:040 BMI (Body Mass Index) 27.77 kg/m2 Sophia Castle MD [facility] 07-02-2017 09:090400 Body Temperature 98.2 [degF] Sophia Castle MD [facility] [place] 07-02-2017 09:09-0400 BP Diastolic 68 mm[Hg] Sophia Castle MD [facility] [place] 07-02-2017 09:09-0400 BP Systolic 106 mm[Hg] Sophia Castle MD [facility] [place] 07-02-2017 09:090400 Height 162.56 cm Sophia Castle MD [facility] [place] 07-02-2017 09:090400 Pulse (Heart Rate) 70 /min Sophia Castle MD [facility] [place] 07-02-2017 09:090400 Respiratory Rate 16 /min Sophia Castle MD [facility] [place] 07-02-2017 09:090400 Weight 73.39 kg Sophia Castle MD [facility] [place] Procedures Date Procedure Procedure Detail Performing Clinician Start: 07-02-2017 End: 07-02-2017 Insertion intrauterine device iud Sophia Castle MD Work Phone: Start: 07-02-2017 End: 07-02-2017 Mirena device, 52 mg Sophia grimm MD Work Phone: Plan of Treatment Date Care Activity Detail Author Start: 08-13-2017 End: 08-13-[address] [facility] Start: 05-21-2017 End: 05-21-2017 *CBC with Differential *CBC with Differential [facility] Start: 05-21-2017 End: 05-21-2017 Dehydroepiandrosterone sulfate (DHEA-S) *DHEA - DHEA-S (Dehydroepiandrostero ne Sullfate) [facility] [place] Start: 05-21-2017 End: 05-21-2017 Glucose mass conc *Glucose, Fasting [facility] [place] Start: 05-21-2017 End: 05-21-2017 Lipid panel [AGGREGATE] *Lipid Profile [facility] Start: 05-21-2017 End: 05-21-2017 Testosterone Free [Mass/volume] in Serum or Plasma *TESTOF Testosterone Free [facility] [place] Start: 05-21-2017 End: 05-21-2017 Thyroid stimulating hormone (TSH) *TSH [facility] [place] Start: 05-21-2017 End: 05-21-2017 Us pelvic nonobstetric real-time image complete US Pelvis [facility] [place] Start: 05-21-2017 End: 05-21-2017 Us transvaginal US Transvaginal [facility] [place] Additional Source Comments [...] BE BASED ON THE PRIMARY CLINICAL RECORDS. [facility]. provides no warranty or guarantee of the accuracy or completeness of information in this document.
== END | disposition home or self-care (01) ==
LOC: OPUS 07:39
PROVIDERS: PCP Family Medicine; Visit Provider Nurse Practitioner Women's Health
DX: N63.20 Unspecified lump in the left breast, unspecified quadrant (principal)
CPT/HCPCS: 76642

== ENCOUNTER → 2024-07-28 | Outpatient (CLI) | payer OTHER, SELFPAY | END | disposition home or self-care (01) | LOC: OPUS 13:25 | PROVIDERS: PCP Family Medicine; Referring Provider Physician Assistant; Visit Provider Physician Assistant | DX: N60.32 Fibrosclerosis of left breast (principal) | CPT/HCPCS: 19083; 19084; 88305 ==

== ENCOUNTER → 2024-09-09 | Outpatient (CLI) | payer OTHER, SELFPAY ==
--- NOTE | 2024-09-09 08:31 | RAD_ITS ---
STUDY: X-RAY - LEFT KNEE REASON FOR EXAM: Female, 43 years old. pain TECHNIQUE: 4 view(s) of the knee. COMPARISON: 04/30/2023 FINDINGS: Normal visualized distal femur. Normal visualized proximal tibia and fibula. Normal proximal tibiofibular articulation. There is mild degenerative arthrosis of the medial femorotibial compartment. There is mild degenerative arthrosis of the lateral femorotibial compartment. There is mild degenerative arthrosis of the patellofemoral articulation. There is a soft tissue prominence in the suprapatellar region suggesting a small volume joint effusion. The soft tissue structures are unremarkable. RAD/Knee 4 or More Views IMPRESSION: Degenerative arthrosis. Electronically Signed: Stephan Cox MD at 21:55 EST ,
== END | disposition home or self-care (01) ==
LOC: MTRAD 08:31
PROVIDERS: PCP Family Medicine; Referring Provider Orthopaedic Surgery Sports Medicine; Visit Provider Orthopaedic Surgery Sports Medicine
DX: M25.562 Pain in left knee (principal)
CPT/HCPCS: 73564

== ENCOUNTER → 2025-02-11 | Outpatient (CLI) | payer OTHER, SELFPAY ==
--- NOTE | 2025-02-11 08:02 | US_ITS ---
PROCEDURE: BREAST LIMITED UNILATERAL 02/11/2025 REASON FOR EXAM: 44-year-old female presents for follow-up status post left breast biopsy in July 2024. TECHNIQUE: Targeted left breast ultrasound. COMPARISON: Ultrasound 07/28/2024 and 07/03/2024. Mammogram 06/30/2024 FINDINGS: Left breast ultrasound was targeted to the lateral breast. 1. There is a hypoechoic mass with an associated biopsy marker clip at 2 o'clock 6 cm from the nipple, measuring 0.5 x 0.4 x 0.3 cm. This is not significantly changed compared to prior. This mass had corresponding benign pathology of benign breast tissue with focal dense fibrosis, negative for atypia or malignancy. 2. There is a hypoechoic mass at 4 o'clock 2 cm from the nipple, measuring 0.5 x 0.5 x 0.3 cm. The biopsy clip is in the adjacent breast tissue superior and medial to the lesion. This mass and not significantly changed when compared to prior of 07/03/2024. This mass had corresponding benign pathology of benign breast tissue with focal dense fibrosis, negative for atypia or malignancy. US/Breast Limited Unilateral IMPRESSION: Impression: Stable left breast masses at 2 o'clock 6 cm from the nipple and 4 o 'clock 2 cm from the nipple, with corresponding benign pathology of focal dense fibrosis, negative for atypia or malignancy. Birads: BI-RADS 2: BENIGN. RECOMMEND ANNUAL MAMMOGRAPHIC SCREENING. Reading Location: [id number]
== END | disposition home or self-care (01) ==
LOC: OPUS 07:58
PROVIDERS: PCP Family Medicine; Referring Provider Surgery; Visit Provider Surgery
DX: N63.21 Unspecified lump in the left breast, upper outer quadrant (principal); N63.23 Unspecified lump in the left breast, lower outer quadrant
CPT/HCPCS: 76642

== ENCOUNTER → 2025-02-14 | Outpatient (CLI) | payer OTHER, SELFPAY ==
--- OUTSIDE RECORDS SUMMARY | 2025-02-14 09:24 | XMS RPT_ITS | CCD ---
Author Organization [facility] Care Team Providers Care Rn Palliative Name Role Phone Sophia Castle MD Unavailable [phone] Dr. Linda Alcantar Primary Care Provider [phone] Dr. Linda Alcantar Referring Provider John SCALER, SCALER-C Lauren Attending Provider [phone] Dr. Linda Alcantar Primary Care Provider Dr. Linda Alcantar Referring Provider John SCALER, SCALER-C Lauren Attending Provider Dr. Linda Alcantar DO Primary Care Provider [phone] Dr. Linda Alcantar DO Referring Provider Zaki Jay MD Attending Provider [phone] Zaki Jay Referring Unavailable Zaki Jay Attending Unavailable Malys, Linda Primary Care Unavailable Robotham, Marylou Referring Unavailable Robotham, Marylou Attending Unavailable Malys, Linda Primary Care Unavailable Assessment, Health Risk Attending Unavaila ble Malys, Linda Primary Care Unavailable Assessment, Health Risk Referring Unavaila ble Zaki Jay Attending Unavailable Malys, Linda Primary Care Unavailable Malys, Linda Referring Unavailable Sulma Dugan Referring Unavailable Sulma Dugan Consulting Unavailable Robotham, Marylou Attending Unavailable Malys, Linda Primary Care Unavailable Zaki Jay Attending Unavailable Malys, Linda Primary Care Unavailable Malys, Linda Referring Unavailable Zaki Jay Attending Unavailable Malys, Linda Primary Care Unavailable Malys, Linda Referring Unavailable Zaki Jay Attending Unavailable Malys, Linda Primary Care Unavailable Malys, Linda Referring Unavailable Kandy Bo Attending Unavailabl e Malys, Linda Referring Unavailable Malys, Linda Primary Care Unavailable Marylou Morales Attending Unavailable Malys, Linda Referring Unavailable Malys, Linda Primary Care Unavailable Zaki Jay Attending Unavailable Malys, Linda Primary Care Unavailable Malys, Linda Referring Unavailable [place], Lauren Referring Unavailable [place] Attending Unavailable Malys, Linda Primary Care Unavailable [place] Attending Unavailable Malys, Linda Primary Care Unavailable Sulma Dugan Referring Unavailable Sulma Dugan Attending Unavailable Malys, Linda Primary Care Unavailable Zaki Jay Attending Unavailable Zaki Jay Referring Unavailable Malys, Linda Primary Care Unavailable Allergies Allergy Classification Reported Allergen(s) Allergy Type Date of Onset Reaction(s) Facility (1 source) penicillin v Drug Allergy 7 [facility] (3 sources) Penicillins Allergy to substance 2 unknown [facility] (1 source) Penicillins Drug allergy (disorder) 5 [facility] Repository Medications Current Medications Medication Drug Class(es) Dates Sig (Normalized) Sig (Original) levonorgestrel 0.355403 mg/hr intrauterine system (6 sources) Progestin, Progestin-containi ng Intrauterine Device Start: 08-13-2017 Levonorgestrel (Mirena) 20 mcg/24 hr (5 years) intrauterine device Active 1 NMA INTRA-UTER ONCE August 13, 2017 1:00am Start: 08-13-2017 Levonorgestrel (Mirena) 20 mcg/24 hr (5 years) intrauterine device Active 1 INSERT INTRA-UTER ONCE August 13, 2017 1:00am Start: 07-02-2017 MIRENA (52 MG) 20 MCG/24HR IUD LEVONORGESTREL [id number] Sophia Castle MD Completed/Discontinued Medications Medication Drug Class(es) Dates Sig (Normalized) Sig (Original) acetaminophen 325 mg oral tablet (5 sources) Start: 10-25-2017 End: 06-25-2023 take 1 tablet by mouth once as needed Acetaminophen (Tylenol) 325 mg tablet Discontinued 325 mg PO ONCE as needed October 25, 2017 1:00am June 25, 2023 8:11am predniSONE 10 mg oral tablet (2 sources) Start: 12-28-2022 End: 07-07-2024 take 4 tablets by mouth once daily, then take 3 tablets by mouth once daily, then take 2 tablets by mouth once daily, then take 1 tablet by mouth once daily Prednisone 10 mg tablet Discontinued 10 mg PO As Directed December 28, 2022 12:00am July 07, 2024 11:50am see taper instructions: 4 tablets daily x3 days, then 3 tablets daily x3 days, then 2 tablets daily x3 days, then 1 tablet daily x3 days Problems Active Problems Problem Classification Problem Date Documented Date Episodic/Chronic Nonmalignant breast conditions (4 sources) Breast lump; Translations: [Unspecified lump in the left breast, unspecified quadrant] Onset: 08-13-2024 07-14-2024 Episodic Osteoarthritis (7 sources) Osteoarthritis of left knee joint; Translations: [Unilateral primary osteoarthritis, left knee] Onset: 01-27-2025 09-11-2024 Chronic Other endocrine disorders (1 source) Polycystic ovaries; Translations: [Polycystic ovarian syndrome] Onset: 05-21-2017 05-21-2017 Chronic Other endocrine disorders (5 sources) Polycystic ovary; Translations: [Polycystic ovarian syndrome] 05-29-2022 Chronic Comment on above: AUB- Mirena IUD cont rolled. Inserted 06/2017:will replace if bleeding recurs and problematic Other endocrine disorders (1 source) Polycystic ovarian syndrome; Translations: [Polycystic ovaries] Chronic Other female genital disorders (1 source) Abnormal uterine and vaginal bleeding, unspecified; Translations: [Abnormal uterine and vaginal bleeding, unspecified] Onset: 05-21-2017 05-21-2017 Chronic Other non-traumatic joint disorders (7 sources) Pain in left knee; Translations: [Left knee pain] Onset: 01-27-2025 09-11-2024 Episodic Sprains and strains (2 sources) Sprain of knee; Translations: [Sprain of unspecified site of right knee, initial encounter] Episodic Unclassified (1 source) Screening for malignant neoplasm [...] human papillomavirus (HPV)] Onset: 05-21-2017 05-21-2017 Episodic Other screening for suspected conditions (not mental disorders or infectious disease) (4 sources) Ultrasonography of breast abnormal; Translations: [Other abnormal and inconclusive findings on diagnostic imaging of breast] Onset: 07-25-2024 07-11-2024 Episodic Results Test Name Value Interpretation Reference Range Facility Breast Limited Unilateralon 02-11-2025 Breast Limited Unilateral [facility] [address] [place], [place] [id number] Breast Limited Unilateral MR#: [id number] Acct: [id number] Name: EVENS RINCON Rep #: [id number] : 1980 F 44 From: Kat Aranda MD PCP: Dr. Linda Alcantar, Status: [facility] CLI Study: Breast Limited Unilateral Date of Exam: Exam# [id number] Ordering Dr: Marylou Morales MD PROCEDURE: BREAST LIMITED UNILATERAL 02/11/2025 REASON FOR EXAM: 44-year-old female presents for follow-up status post left breast biopsy in July 2024. TECHNIQUE: Targeted left breast ultrasound. COMPARISON: Ultrasound 07/28/2024 and 07/03/2024. Mammogram 06/30/2024 FINDINGS: Left breast ultrasound was targeted to the lateral breast. 1. There is a hypoechoic mass with an associated biopsy marker clip at 2 o'clock 6 cm from the nipple, measuring 0.5 x 0.4 x 0.3 cm. This is not significantly changed compared to prior. This mass had corresponding benign pathology of benign breast tissue with focal dense fibrosis, negative for atypia or malignancy. 2. There is a hypoechoic mass at 4 o'clock 2 cm from the nipple, measuring 0.5 x 0.5 x 0.3 cm. The biopsy clip is in the adjacent breast tissue superior and medial to the lesion. This mass and not significantly changed when compared to prior of 07/03/2024. This mass had corresponding benign pathology of benign breast tissue with focal dense fibrosis, negative for atypia or malignancy. US/Breast Limited Unilateral IMPRESSION: Impression: Stable left breast masses at 2 o'clock 6 cm from the nipple and 4 o'clock 2 cm from the nipple, with corresponding benign pathology of focal dense fibrosis, negative for atypia or malignancy. Birads: BI-RADS 2: BENIGN. RECOMMEND ANNUAL MAMMOGRAPHIC SCREENING. Reading Location: [id number] CC: Dr. Linda Alcantar DO; Dr. Marylou Morales MD Supervisor Grounds: Signed Normal [facility] Orthopedic Visit Reporton Orthopedic Visit Report [facility] [address] [place] [address] OFFICE VISIT Date of Service: 01/27/25 MR#: [id number] Acct: [id number] Name: EVENS RINCON Rep #: [id number] : 1980 Provider: Dr. Zaki grijalva MD Age/Sex: 44/F Location: [facility] [place] Status: Signed Intake Vital Signs 09/11/24 13:19 01/26/25 08:28 01/27/25 08:45 Height 5 ft 4 in 5 ft 4 in 5 ft 4 in Weight: 170 lb 2 oz 170 lb BMI 29.2 29.2 Intake Visit Reasons: LEFT KNEE Chief Complaint: Left knee medial pain Accompanied by: Self Is patient in pain?: No Allergies Penicillins Allergy (Verified 01/27/25 08:48) unknown Medications ???Medication ???Instructions ???Recorded ???Confirmed ???Type levonorgestrel (Mirena) 1 insert intrauterine ONCE 7 01/27/25 History Have you fallen in the past year?: No PFSH Medical History Osteoarthritis of left knee Left knee pain Abnormal mammogram Abnormal ultrasound of breast ACL injury tear PCOS (polycystic ovarian syndrome) Gestational diabetes Surgical History History of delivery Family History Mother Diabetes Aunt Colon cancer Father Lymphona, mantle cell, inguinal region/lower limb Social History household members: other details: Julian number of children: 3 current occupational status: employed 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 Zaki Jay MD 01/27/25 0838. Part of today???s visit was documented by [ ], acting as scribe. EVENS RINCON is a 44 year old F here today for 3 months follow-up left knee pain mild osteoarthritis. Patient has now had 2 cortisone injections without significant lasting relief. Patient still having mechanical symptoms and swelling. A little bit of pain with deep knee flexion. Hard to kneel on the knee. The injection helped for about 3 weeks. There is diffuse pain around the knee mostly anteriorly laterally and posteriorly. Ortho Exam General General: Yes no acute distress Neurologic: Yes alert and Yes oriented x3 Psychologic: Yes reasonable and appropriate Left Knee Skin/Wound: Yes CDI, No ecchymosis, No erythema and No swelling 1+: Effusion Examination: Yes med jt line tenderness, Yes Lat jt line tenderness, No Crepitus, Yes Pain with flexion and Yes Nancy's Test Supplemental Info [facility] [address] [place] [address] Knee 4 or More Views MR#: [id number] Acct: [id number] Name: EVENS RINCON Rep #: [id number] : 1980 F 43 From: Stephan Cox MD PCP: Dr. Linda Alcantar, DO Status: [facility] CLI Study: Knee 4 or More Views Date of Exam: 09/09/24 Exam# [id number] Ordering Dr: Zaki Jay MD [id number] STUDY: X-RAY - LEFT KNEE REASON FOR EXAM: Female, 43 years old. pain TECHNIQUE: 4 view(s) of the knee. COMPARISON: 04/30/2023 FINDINGS: Normal visualized distal femur. Normal visualized proximal tibia and fibula. Normal proximal tibiofibular articulation. There is mild degenerative arthrosis of the medial femorotibial compartment. There is mild degenerative arthrosis of the lateral femorotibial compartment. There is mild degenerative arthrosis of the patellofemoral articulation. There is a soft tissue prominence in the suprapatellar region suggesting a small volume joint effusion. The soft tissue structures are unremarkable. RAD/Knee 4 or More Views IMPRESSION: Degenerative arthrosis. Electronically Signed: Stephan Cox MD at 21:55 EST , I independently reviewed the imaging. Concur with radiologis (more content not included)... Normal [facility] Orthopedic Visit Reporton Orthopedic Visit Report [facility] [address] [place] [address] [address] [place] [address] OFFICE VISIT Date of Service: 10/13/24 MR#: [id number] Acct: [id number] Name: EVENS RINCON Rep #: [id number] : 1980 Provider: Dr. Zaki grijalva MD Age/Sex: 43/F Location: [facility] [place] Status: Signed Intake Vital Signs 09/11/24 13:19 Height 5 ft 4 in Weight: 170 lb 2 oz BMI 29.2 Intake Visit Reasons: LEFT KNEE Chief Complaint: 3rd Euflexxa Injection Accompanied by: Self Is patient in pain?: Yes Pain scale (1-10): 4 Allergies Penicillins Allergy (Verified 10/13/24 08:11) unknown Medications ???Medication ???Instructions ???Recorded ???Confirmed ???Type levonorgestrel (Mirena) 1 insert intrauterine ONCE 7 10/13/24 History PFSH Medical History Osteoarthritis of left knee Left knee pain Abnormal mammogram Abnormal ultrasound of breast ACL injury tear PCOS (polycystic ovarian syndrome) Gestational diabetes Surgical History History of delivery Family History Mother Diabetes Aunt Colon cancer Father Lymphona, mantle cell, inguinal region/lower limb Social History household members: other details: Julian number of children: 3 current occupational status: employed 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 Zaki Jay MD 10/13/24 0801. Part of today???s visit was documented by [ ], acting as scribe. EVENS RINCON is a 43 year old F here today for L knee OA, euflexxa 11/10. Doing well the injections seem to be helping. The patient did have 1 episode where they had a sharp pain and some mechanical symptoms with the knee but other than that it is felt fine. Office Procedures Euflexxa Procedure Details:: Obtained consent for injection. Under sterile conditions, injected the patients left knee with 3rd Euflexxa injection. The patient tolerated the injection well without any noted complication. Patient should call our office if redness develops, pain worsens or if they have any concerns. Is this Buy Bill?: Yes Office Meds Euflexxa 10 mg/mL (mw 2.4-3.6 million) intra-articular syringe Performing Provider: Zaki Jay MD Performing Location: [facility] Administered by: Zaki Jay MD on 10/13/24 08:14 Dose Route Admin Location Dispensed Lot Number Expiration Date [employer] u[employer]urer 20 mg intra-articular Left Knee 2 mL [id number] 08/09/25 [address]-0 [facility] [employer] Coding Level of Care Code Attention Linda Diagnoses Osteoarthritis of left knee M17.12 Left knee pain M25.562 Comment Left knee intra-articular Euflexxa injection Assessment and Plan Assessment and Plan (1) Osteoarthritis of left knee: Status: Acute Plan: 43 F L knee OA, euflexxa /. FU prn. If the mechanical symptoms continue the next step would be an MRI the patient understands. Left knee intra-articular Euflexxa injection We discussed the pros and cons risks and benefits of going ahead with left knee intra-articular Euflexxa injection. The risks include but are not limited to infection, pain, acute flare reaction, stiffness, bleeding, damage to surrounding structures, worsening arthritis or damage to the cartilage. The patient wished to proceed. The anterior aspect of the knee was prepped with chlorhexidine in the usual sterile fashion. Sterile no touch technique was employed. Used Gebauer spray per bottle instructions. 2cc Euflexxa was injected into the intra-articular portion of the knee. The patient tolerated procedure well. Bandage placed. There is no complications. Standard post procedure care instructions were given. Red flag symptoms were discussed in which case to return to clinic immediately or go to the emergency department such as redness, swelling, fever, discharge, drainage, increase pain or other symptoms. (2) Left knee pain: Status: Acute Orders: Orders Euflexxa Injection Today M17.12 - Unilateral primary osteoarthritis, left knee Ortho (more content not included)... Normal [facility] Orthopedic Visit Reporton Orthopedic Visit Report [facility] [address] [place] [address] OFFICE VISIT Date of Service: 10/06/24 MR#: [id number] Acct: [id number] Name: EVENS RINCON Rep #: [id number] : 1980 Provider: Dr. Zaki grijalva MD Age/Sex: 43/F Location: [facility] [place] Status: Signed Intake Vital Signs 09/11/24 13:19 Height 5 ft 4 in Weight: 170 lb 2 oz BMI 29.2 Intake Visit Reasons: LEFT KNEE Chief Complaint: 2nd Euflexxa Injection Allergies Penicillins Allergy (Verified 10/06/24 08:06) unknown Medications ???Medication ???Instructions ???Recorded ???Confirmed ???Type levonorgestrel (Mirena) 1 insert intrauterine ONCE 08/13/17 10/06/24 History PFSH Medical History Osteoarthritis of left knee Left knee pain Abnormal mammogram Abnormal ultrasound of breast ACL injury tear PCOS (polycystic ovarian syndrome) Gestational diabetes Surgical History History of delivery Family History Mother Diabetes Aunt Colon cancer Father Lymphona, mantle cell, inguinal region/lower limb Social History household members: other details: Julian number of children: 3 current occupational status: employed 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 Zaki Jay MD 10/06/24 0759. Part of today???s visit was documented by [ ], acting as scribe. EVENS RINCON is a 43 year old F here today for L knee euflexxa 2/3. feeling better with sleeping. Ortho Exam General General: Yes no acute distress Neurologic: Yes alert and Yes oriented x3 Psychologic: Yes reasonable and appropriate Left Knee Skin/Wound: Yes CDI, No ecchymosis, No erythema and No swelling Office Procedures Euflexxa Procedure Details:: Obtained consent for injection. Under sterile conditions, injected the patients left knee with 20mg/2mL of Euflexxa. The patient tolerated the injection well without any noted complication. Patient should call our office if redness develops, pain worsens or if they have any concerns. Is this Buy Bill?: Yes Office Meds Euflexxa 10 mg/mL (mw 2.4-3.6 million) intra-articular syringe Performing Provider: Zaki Jay MD Performing Location: [facility] Administered by: Zaki Jay MD on 10/06/24 08:14 Dose Route Admin Location Dispensed Lot Number Expiration Date NDC Man ufacturer 20 mg intra-articular left knee 2 mL [id number] 08/09/25 [address]-2 [facility] Coding Level of Care Code Attention Statistical Secretary Diagnoses Osteoarthritis of left knee M17.12 Left knee pain M25.562 Comment Left knee intra-articular Euflexxa injection Assessment and Plan Assessment and Plan (1) Osteoarthritis of left knee: Status: Acute Plan: 43 F L knee OA, euflexxa 2/3. FU 1 week. Left knee intra-articular Euflexxa injection We discussed the pros and cons risks and benefits of going ahead with left knee intra-articular Euflexxa injection. The risks include but are not limited to infection, pain, acute flare reaction, stiffness, bleeding, damage to surrounding structures, worsening arthritis or damage to the cartilage. The patient wished to proceed. The anterior aspect of the knee was prepped with chlorhexidine in the usual sterile fashion. Sterile no touch technique was employed. Used Gebauer spray per bottle instructions. 2cc Euflexxa was injected into the intra-articular portion of the knee. The patient tolerated procedure well. Bandage placed. There is no complications. Standard post procedure care instructions were given. Red flag symptoms were discussed in which case to return to clinic immediately or go to the emergency department such as redness, swelling, fever, discharge, drainage, increase pain or other symptoms. (2) Left knee pain: Status: Acute Orders: Orders Euflexxa Injection Today M17.12 - Unilateral primary osteoarthritis, left knee 10/06/24 0820 Date Zaki Jay MD Cos (more content not included)... Normal [facility] Orthopedic Visit Reporton Orthopedic Visit Report [facility] [address] [place] [address] [address] [place] [address] OFFICE VISIT Date of Service: 09/29/24 MR#: [id number] Acct: [id number] Name: EVENS RINCON Rep #: [id number] : 1980 Provider: Dr. Zaki grijalva MD Age/Sex: 43/F Location: [facility] [place] Status: Signed with Addenda ADDENDUM by Anh Mackey on 09/29/24 at 1015 Office Procedure Documentation entered by Anh Mackey 09/29/24 10:15: Euflexxa Procedure Details:: Obtained consent for injection. Under sterile conditions, injected the patients left knee with 1st Euflexxa injection. The patient tolerated the injection well without any noted complication. Patient should call our office if redness develops, pain worsens or if they have any concerns. Is this Buy Bill?: Yes Office Meds Euflexxa 10 mg/mL (mw 2.4-3.6 million) intra-articular syringe Performing Provider: Zaki Jay MD Performing Location: [facility] Administered by: Zaki Jay MD on 09/29/24 10:14 Dose Route Admin Location Dispensed Lot Number Expiration Date NDC Man ufacturer 20 mg intra-articular Left Knee 2 mL [id number] 08/09/25 [address]-4 [facility] Date cc: * Signed Intake Vital Signs 09/11/24 13:19 Height 5 ft 4 in Weight: 170 lb 2 oz BMI 29.2 Intake Visit Reasons: LEFT KNEE Chief Complaint: 1st Euflexxa Injection Accompanied by: Self Is patient in pain?: Yes Pain scale (1-10): 4 Allergies Penicillins Allergy (Verified 09/29/24 09:37) unknown Medications ???Medication ???Instructions ???Recorded ???Confirmed ???Type levonorgestrel (Mirena) 1 insert intrauterine ONCE 08/13/17 09/29/24 History PFSH Medical History Osteoarthritis of left knee Left knee pain Abnormal mammogram Abnormal ultrasound of breast ACL injury tear PCOS (polycystic ovarian syndrome) Gestational diabetes Surgical History History of delivery Family History Mother Diabetes Aunt Colon cancer Father Lymphona, mantle cell, inguinal region/lower limb Social History household members: other details: Julian number of children: 3 current occupational status: employed 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 Zaki Jay MD 09/29/24 0754. Part of today???s visit was documented by [ ], acting as scribe. EVENS RINCON is a 43 year old F here today for left knee Euflexxa injection 1 of 3 for osteoarthritis. Coding Level of Care Code Attention Statistical Secretary Diagnoses Osteoarthritis of left knee M17.12 Left knee pain M25.562 Comment left knee Euflexxa injection 1 of 3 for osteoarthritis Assessment and Plan Assessment and Plan (1) Osteoarthritis of left knee: Status: Acute Plan: EVENS RINCON is a 43 year old F here today for left knee Euflexxa injection 1 of 3 for osteoarthritis. fu 1 week. Left knee intra-articular Euflexxa injection We discussed the pros and cons risks and benefits of going ahead with left knee intra-articular Euflexxa injection. The risks include but are not limited to infection, pain, acute flare reaction, stiffness, bleeding, damage to surrounding structures, worsening arthritis or damage to the cartilage. The patient wished to proceed. The anterior aspect of the knee was prepped with chlorhexidine in the usual sterile fashion. Sterile no touch technique was employed. Used Gebauer spray per bottle instructions. 2cc Euflexxa was injected into the intra-articular portion of the knee. The patient tolerated procedure well. Bandage placed. There is no complications. Standard post procedure care instructions were given. Red flag symptoms were discussed in which case to return to clinic immediately or go to the emergency department such as redness, swelling, fever, discharge, drainage, increase pain or other symptoms. (2) Left knee pain: Status: Acute Ortho Exam General General: Yes no acute distress Neurologic: Yes (more content not included)... [facility] Orthopedic Visit Reporton Orthopedic Visit Report [facility] [address] [place] [address] OFFICE VISIT Date of Service: 09/11/24 MR#: [id number] Acct: [id number] Name: EVENS RINCON Rep #: [id number] : 1980 Provider: Dr. Zaki grijalva MD Age/Sex: 43/F Location: [facility] Status: Signed Intake Vital Signs 07/11/24 13:23 09/11/24 13:19 Height 5 ft 4 in 5 ft 4 in Weight: 167 lb 8 oz 170 lb 2 oz BMI 28.7 29.2 BP 130/75 H Blood Pressure Location Rt brachial Position Sitting Respiration 18 Pulse 81 Pulse Source Monitor Temp 97.2 F L Temp Source Temporal Pulse Oximetry (%) 99 Oxygen Delivery Method room air Intake Visit Reasons: LEFT KNEE Accompanied by: Self Is patient in pain?: Yes (2) Allergies Penicillins Allergy (Verified 09/11/24 13:20) unknown Medications ???Medication ???Instructions ???Recorded ???Confirmed ???Type levonorgestrel (Mirena) 1 insert intrauterine ONCE 08/13/17 09/11/24 History [facility] Medical History (Updated 09/11/24 @ 13:39 by Zaki Jay MD) Osteoarthritis of left knee Left knee pain Abnormal mammogram Abnormal ultrasound of breast ACL injury tear PCOS (polycystic ovarian syndrome) Gestational diabetes Surgical History History of delivery Family History Mother Diabetes Aunt Colon cancer Father Lymphona, mantle cell, inguinal region/lower limb Social History household members: other details: Julian number of children: 3 current occupational status: employed 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 Zaki Jay MD 09/11/24 2647. Part of today???s visit was documented by [ ], acting as scribe. EVENS RINCON is a 43 year old F here today for L knee pain. 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 Patient has a history of right-sided contralateral ACL reconstruction meniscus repair and microfracture they really feel like they have been doing the left side quite a bit of work and make that the dominant side have to do quite a bit of physically demanding labor moving disabled children around and helping them to mobilize and do other activities of daily living. Ortho Exam General General: Yes no acute distress Neurologic: Yes alert and Yes oriented x3 Psychologic: Yes reasonable and appropriate Right Knee Patella Translation: 2 Left Knee Skin/Wound: Yes CDI, No ecchymosis, No erythema and No swelling Examination: Yes med jt line tenderness, No Lat jt line tenderness, No TTP inf pole patella, Yes Crepitus, No Pain with flexion, No Nancy's Test, No TTP Patellar tendon, No TTP Tibial tubercle, No TTP Pes Anserine and No Illiotibial band tenderness Quad Atrophy: No Stability: NML: Anterior Drawer, NML: Ana, NML: Posterior Drawer, NML: Valgus 0, NML: Valgus 30, NML: Varus 0 and NML: Varus 30 Apprehension with Lateral Translation: No Patella Translation: 2 Patellar Tilt Normal: Yes Patella Grind: Yes KNEE: Normal gait normal alignment range of motion 0-1 25. There is quite a bit of crepitus with knee range of motion testing especially coming from the patellofemoral joint Supplemental Info [facility] [address] [place] [address] Knee 4 or More Views MR#: [id number] Acct: [id number] Name: SALAZAR RINCONELLE RUBÉN Rep #: [id number] : 1980 F 43 From: Stephan Cox MD PCP: Dr. Linda Alcantar, Status: REG CLI Study: Knee 4 or More Views Date of Exam: 09/09/24 Exam# [id number] Ordering Dr: Zaki Jay MD [id number] STUDY: X-RAY - LEFT KNEE REASON FOR EXAM: Female, 43 years old. pain TECHNIQUE: 4 view(s) of the knee. COMPARISON: 04/30/2023 FINDINGS: Normal visualized (more content not included)... [facility] Knee 4 or More Viewson 09-09 Knee 4 or More Views [facility] [address] [place] [address] Knee 4 or More Views MR#: [id number] Acct: [id number] Name: SERGEYEVENS RUBÉN Rep #: [id number] : 1980 F 43 From: Stephan Cox MD PCP: Dr. Linda Alcantar DO Status: REG CLI Study: Knee 4 or More Views Date of Exam: 09/09/24 Exam# [id number] Ordering Dr: Zaki Jay MD [id number] STUDY: X-RAY - LEFT KNEE REASON FOR EXAM: Female, 43 years old. pain TECHNIQUE: 4 view(s) of the knee. COMPARISON: 04/30/2023 FINDINGS: Normal visualized distal femur. Normal visualized proximal tibia and fibula. Normal proximal tibiofibular articulation. There is mild degenerative arthrosis of the medial femorotibial compartment. There is mild degenerative arthrosis of the lateral femorotibial compartment. There is mild degenerative arthrosis of the patellofemoral articulation. There is a soft tissue prominence in the suprapatellar region suggesting a small volume joint effusion. The soft tissue structures are unremarkable. RAD/Knee 4 or More Views IMPRESSION: Degenerative arthrosis. Electronically Signed: Stephan Cox MD at 21:55 EST , CC: Dr. Linda Alcantar DO; Dr. Zaki Jay MD Supervisor Grounds: Signed [facility] Operative Reporton 4 Operative Report [facility] Medical Records Department [address] [place] [address] Operative Report 07/28/24 1500 MR#: [id number] Acct: [id number] Name: EVENS RINCON Rep #: [id number] : 1980 43 From: Marylou Morales MD PCP: Dr. Linda Alcantar DO Status:REG CLI Location: OPUS Operative Report (Standard) Operative Information Surgery/Procedure Performed: Ultrasound-guided left breast biopsy x 2 Surgeon: Marylou Morales Date of Procedure: 07/28/24 Procedure Start Time: 14:30 Procedure Stop Time: 14:50 Pre-Operative Diagnosis: Left breast mass x 2 Post-Operative Diagnosis: Same Select all DRAINS/GRAFTS/IMPLA NTS that apply: None Type of Anesthesia: Local Estimated Blood Loss: < 10 cc Specimen collected: Yes Description of specimen(s) removed: 1. Left breast mass 2:00 6 cm from nipple, 2. Left breast mass 4:00 2 cm from the nipple Description of surgery: Procedure: Left ultrasound-guided core biopsy x 2 Indications: 43year-old female with hypoechoic/complex cystic nodule at 2:00 and 4:00 in the left breast 6 cm and 2 centimeters from the nipple. Risk benefits were discussed the patient and she elected to proceed with ultrasound guided core biopsy with clip placement Description of procedure: Patient was brought into the ultrasound room in the left breast was marked. A timeout was completed verifying correct patient, procedure, site, specially, prior to beginning procedure. The left breast was prepped and draped in usual sterile fashion and using local anesthesia was obtained with 1% lidocaine with epi. Both procedures were done similarly. The lesion was located with the ultrasound. Small incision was made with 11 blade to introduced the mammotome through the skin. Under ultrasound guidance multiple core samples were obtained using then 13-gauge mammotome and sent in formalin for pathology. The Bard dual ultra-(ribbon 2:00 6 cm, coil 4:00 2 cm) clip was then deployed into the biopsy cavity under ultrasound guidance and a picture was taken. Upon completion procedure hemostasis was obtained and a Steri-Strip and OpSite were placed. Patient was then taken to the mammography suite for clip verification. The clip was verified. The patient tolerated the procedure well and was discharged from the breast imaging department good condition. Surgical Findings: Hypoechoic lesion at 2:00, more complex cyst at 4:00 Dry Pan Operator rose grower: No Complications Complications: No 07/29/24 6094 Cosigner Signature (if applicable): CC: JENNIFER Cuevas; Dr. Linda Alcantar DO; Dr. Marylou Morales MD Signed [facility] Surgery Specimen Level Zach 07-28-2024 Surgery Specimen Level IV Patient Age/Sex Location Account Attending Physician EVENS RINCON 43/F OPUS [id number] Sulma Cuevas PA-C Specimen: [id number] Received: 07/28/24 Status: ANDREA Cohenmike Num: [id number] Spec Type: BREAST BX Subm Dr: Sulma Cuevas PA-C HEADER OPERATION: Ultrasound guided left breast core biopsy PRE-OP DIAGNOSIS: Left breast mass TISSUE SUBMITTED: A- Left breast, 2o'clock, 6cm from nipple, B- Left breast, 4o'clock, 2cm from nipple Ischemic Time: 1 minute Fixation Time: 5 hours MICROSCOPIC DIAGNOSIS A. Left breast, 2o'clock, 6cm from nipple, core biopsy: Fragments of benign breast tissue with focal dense fibrosis. Negative for atypia or malignancy. See comment. B. Left breast, 4o'clock, 2cm from nipple, core biopsy: Fragments of benign breast tissue with focal minimal dense fibrosis. Negative for atypia or malignancy. See comment. JULIANE. 07/30/2024 COMMENT A B. Correlation with clinical, radiologic findings and appropriate follow up are necessary. MICROSCOPIC DESCRIPTION Slides are reviewed. GROSS DESCRIPTION A. Received in fixative is one container labeled with the patient's name and designated Left breast- 2o'clock, 6cm from nipple. The specimen consists of multiple elongated fragments of malone-yellow fibroadipose tissue that in aggregate measure 1.5 x 1.0 x 0.1 cm. The specimen is totally submitted in one cassette. B. Received in fixative is one container labeled with the patient's name and designated Left breast - 4o'clock, 2cm from nipple. The specimen consists of multiple elongated fragments of malone-yellow fibroadipose tissue that in aggregate measure 2.5 x 0.5 x 0.1 cm. The specimen is totally submitted in one cassette. JULIANE. 07/29/2024 TC:5 CPT:84423x1 Patient Age/Sex Location Account Attending Physician EVENS RINCON 43/F N[facility] [id number] Sulma Cuevas PA-C Signed (signatur e on file) Dr. Tad Smith MD 07/30/24 1201 [facility] Comment on above: Performed By: #### P SUIV #### [facility] [address] [place], [address] US Breast Biopsy 1st Lesiono n 07-28-2024 US Breast Biopsy 1st Lesion [facility] [address] [place] [address] US Breast Biopsy 1st Lesion MR#: [id number] Acct: [id number] Name: EVENS RINCON Rep #: [id number] : 1980 F 43 From: Kumar de la rosa MD PCP: Dr. Linda Alcantar, Status: [facility] Study: US Breast Biopsy 1st Lesion Date of Exam: 07/11 05/03 Exam# [id number] Ordering Dr: Sulma Cuevas A-Dory -[id number] MAMMOGRAPHY - UNILATERAL DIAGNOSTIC: LEFT BREAST REASON FOR EXAM: Female, 43 years old. Status post ultrasound-guided breast biopsy. PERTINENT HISTORY: Non-contributory. TECHNIQUE: Digital examination. Mediolateral oblique (MLO) and craniocaudad (CC) views of the breast were obtained. CAD: COMPARISON: Comparison is made with prior mammogram dated June 30, 2024. FINDINGS: Breast Composition: The breasts are heterogeneously dense, which may obscure small masses. A tissue clip marker is seen in the upper lateral aspect of the left breast. A second tissue clip marker is seen in the central slightly medial aspect of the left breast No other significant abnormalities are identified. IMPRESSION: Status post ultrasound-guided left breast biopsies as described. Tissue clip markers are seen at the biopsy site. ASSESSMENT CATEGORY: BIRADS Category 2: Benign. A letter regarding these results will be sent to the patient by the facility within 30 days. FOLLOW-UP RECOMMENDATION: Approximately 10% of breast cancers are not detected by mammography. A normal mammogram should not delay biopsy of a clinically suspicious abnormality. Electronically Signed: Kumar Washington MD at 8:49 EST , [id number] INDICATION: left breast masses EXAMINATION: Ultrasound LEFT IR Breast Biopsy (With Clip and Specimen if done) Additional Lesion W/ US Guidance TECHNIQUE: Routine ordoñez scale and color-doppler imaging was performed of the bilateral breasts. COMPARISON: None. FINDINGS: Under direct sonographic guidance, the surgeon performed core biopsies of the abnormality at the 2:00 position the breast at 6 cm from the nipple. US/US Breast Biopsy 1st Lesion IMPRESSION: Ultrasound-guided left breast biopsy. NOTES: 7-10% of cancers are not identified by mammography. Any palpable finding should be evaluated independently of this report. Guidelines for Early Breast Cancer Detection: * Annual breast examination by a physician or other health care provider. * Monthly breast self-examination. * Annual mammography screening beginning at age 40 and continuing for as long as a woman is in good health. * Women at increased risk (e.g., family history, genetic tendency, past breast cancer) should talk with their doctors about the benefits and limitations of starting mammography screening earlier, having additional tests (e.g., breast ultrasound or MRI) or having more frequent exams. Screening MRI is recommended for women with an approximately 20-25% or greater lifetime risk of breast cancer, including women with a strong family history of breast or ovarian cancer and women who were treated for Hodgkin''''s disease. Electronically Signed: Kumar Washington MD at 9:00 EST Reading Location ID and State: [address] [place] [address] , Service support , CC: JENNIFER Cuevas; Dr. Linda Alcantar DO Supervisor Grounds: Signed [facility] Surgery Visit Reporton 07-11 Surgery Visit Report [facility] [address] [place], [place] [address] OFFICE VISIT Date of Service: 07/11/24 MR#: [id number] Acct: [id number] Name: EVENS RINCON Rep #: [id number] : 1980 Provider: Dr. Marylou johnson MD Age/Sex: 43/F Location: [facility] Status: Signed Intake Vital Signs 07/07/24 11:44 07/11/24 13:23 Height 5 ft 4 in 5 ft 4 in Weight: 167 lb 8 oz BMI 28.7 BP 130/75 H Blood Pressure Location Rt brachial Position Sitting Respiration 18 Pulse 81 Pulse Source Monitor Temp 97.2 F L Temp Source Temporal Pulse Oximetry (%) 99 Oxygen Delivery Method room air Intake Visit Reasons: BREAST LUMP Chief Complaint: breast lump Is patient in pain?: No Allergies Penicillins Allergy (Verified 07/11/24 13:24) unknown Medications ???Medication ???Instructions ???Recorded ???Confirmed ???Type levonorgestrel 21 mcg/24 hr (up to 1 insert intrauterine ONCE 08/13/17 07/11/24 History 8 years) 52 mg intrauterine device (Mirena) [facility] Medical History (Updated 07/11/24 @ 13:23 by Kinga Arteaga LPN) Abnormal mammogram Abnormal ultrasound of breast ACL injury tear PCOS (polycystic ovarian syndrome) Gestational diabetes Surgical History History of delivery Family History Mother Diabetes Aunt Colon cancer Father Lymphona, mantle cell, inguinal region/lower limb Social History household members: other details: Julian number of children: 3 current occupational status: employed 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 Patient denies feeling any masses or breast pain or nipple discharge. Age of menses 13, age of time of of first child 25, no family history of breast cancer, no previous breast biopsies. Ultrasound left breast showed an 8 mm well-defined hypoechoic nodule at 4:00 2 cm from nipple as well as a 6 mm similar-appearing nodule at 2:00 6 cm from the nipple. These may represent small fibroadenomas given a BI-RADS Category 3. ROS General General: No weight change, appetite, fatigue, colon cancer, breast cancer or weakness HEENT HEENT: No difficulty swallowing, eye injury, eye surgery, swollen glands or hoarseness Endo Endocrine: No thyroid disease, diabetes mellitus, thyroid cancer, Hair loss, heat intolerance or cold intolerance Skin Skin: No rash or changing moles Breast Breast: Yes abnormal mammogram and abnormal US; No left breast lump, right breast lump, nipple discharge, breast pain or breast enlargement Musc Musculoskeletal: No back problems, arthritis, rheumatoid arthritis, gout or joint pain Cardio Cardiovascular: No murmur, pacemaker, heart disease, atrial fibrillation, high blood pressure, heart attack, heart stent, palpitations, shortness of breat with exertion or chest pain Psych Psychiatric: No depression, anxiety or hearing voices Resp Respiratory: No shortness of breath, No sleep apnea, No cough, No COPD, No asthma, No emphysema and No wheezing Gastro Gastrointestinal: No abdominal pain, No nausea or vomiting, No diarrhea, No constipation, No blood in stool, No acid reflux, No hemorrhoids, No ulcers, No gallbladder problem and No black,tarry stools Rashaad Hematologic: No blood thinners, No blood disorders, No bleeding, No anemia and No blood clots Neuro Neurologic: No numbness, No tingling and No weakness Exam Const General: cooperative, healthy appearing and no acute distress HENTN Head: normal to inspection Chest Other: Breast inspection: Symmetric bilaterally Right breast: Fibroglandular tissue, no masses on exam, no nipple discharge or pain, no change in overlying skin Left breast: Fibroglandular tissue, no masses on exam, no nipple discharge or pain, no change in overlying skin No axillary or supraclavicular adenopathy bilaterally Resp Effort Inspection: normal respiratory effort Cardio Rate: regular rate GI Inspection: non-distended Palpation: soft Skin General: no rashes or lesions noted Neuro General: trudi (more content not included)... [facility] Account Services Analyst Office Visit Reporton 07-07-2024 Account Services Analyst Office Visit Report [facility] [address], [address] [place] [address] OFFICE VISIT Date of Service: 07/07/24 MR#: [id number] Acct: [id number] Name: EVENS RINCON Rep #: [id number] : 1980 Provider: Dr. 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 Claims Supervisor Required: No Is patient in pain?: No Allergies Penicillins Allergy (Verified 07/07/24 11:43) unknown Medications ???Medication ???Instructions ???Recorded ???Confirmed ???Type levonorgestrel 21 mcg/24 hr (up to 1 insert intrauterine ONCE 08/13/17 07/07/24 History 8 years) 52 mg intrauterine device (Mirena) Post menopausal: No Patient : No : No PFSH Medical History ACL injury tear PCOS (polycystic ovarian syndrome) Gestational diabetes Surgical History History of delivery Family History Mother Diabetes Aunt Colon cancer Father Lymphona, mantle cell, inguinal region/lower limb Social History (Updated 07/07/24 @ 11:51 by Gianna Vu) household members: other details: Julian number of children: 3 current occupational status: employed 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 pets and animals: Yes leisure activities: exercise history of recent travel: No sexually active: Yes Smoking Status: Never smoker second hand exposure: No alcohol intake: current alcohol intake frequency: a few times a month diet: other well-balanced diet: daily or most days caffeine: Yes Type: coffee Number of servings: 1 what type of physical activity do you participate in: aerobics frequency: 3-4 times per week seatbelt use: always do you feel safe at home: Yes History 3 Elective abortions Hx Para 3 Spontaneous abortions Hx # Term Pregnancies Ectopic pregnancies Hx # Pregnancies Multiple births # of living children Past Pregnancies Del. Date Name GA/Weeks Outcome Route Bth Weight Gen Labor Lgth Anesthesia Del Locatn Provider FOB Unknown Unknown [place]2008 Unknown [id number] HPI Encounter for routine gynecological examination Details: EVENS RINCON is a 43 year old who presents for annual exam. Last PAP: 05/29/22 History of abnormal PAP: no Last mammogram: 06/29/23 History of abnormal mammogram: yes- sending to gen surg for birads 3 Colon cancer screening: due in 3 years Other preventative health care screenings: followed by pcp Female Reproductive History Cycle Length: 21-35 Bleeding Duration: 5 Questions: metorrhagia: No, sexually active: Yes, dyspareunia: No and PCB: No Menopausal Symptoms: No hot flashes, No night sweats, No weight change, No mood changes, No difficulty concentrating, No sleep problems and No change in libido ROS Const ROS Unobtainable: All systems reviewed are unremarkable except as noted in H Constitutional: Reports as per HPI; Denies fatigue, increased appetite, poor appetite, night sweats, weight gain or weight loss Cardio Card: Denies chest pain Resp Resp: Denies cough or dyspnea GI GI: Reports as per HPI; Denies abdominal pain, bloating, constipation, nausea or vomiting : Reports as per HPI and other; Denies difficulty voiding, dysuria, hematuria, hot flashes, nipple discharge, pelvic pain, prolapse symptoms, urinary frequency, urinary incontinence, urinary urgency, vaginal discharge, vaginal dryness, vaginal odor or vaginal pruritus Skin Skin/Breast: Denies changing lesions, breast mass, breast pain, breast skin changes or nipple discharge Psych Psych: Denies anxiety, change in libido, depression or difficulty concentrating Exam Const General: cooperative, healthy appearing, comfortable, no acute distress, well developed and well groomed HENTN Head: normal to inspection and normocephalic Ears: hearing grossly normal bilaterally and external ears normal Nose: external nose normal Face and sinus: normal facial exam Neck Neck: normal visual inspection, full ROM and no lymphadenopathy Thyroid: thyroid normal Chest Chest palpation inspection: normal inspection of the chest Breast inspection: normal inspection of the breasts and normal inspection of the axillae Breast palpation: normal palpation of the breasts, normal palpation of the axillae and no axillary lymphadenopathy Resp Effort Inspection: normal respiratory effort GI Inspection: normal to inspection and non-distended Pa (more content not included)... Normal [facility] Breast Limited Unilateralon 07-03-2024 Breast Limited Unilateral [facility] [address] [place], [place] [id number] Breast Limited Unilateral MR#: [id number] Acct: [id number] Name: EVENS RINCON Rep #: [id number] : 1980 F 43 From: Kumar de la rosa MD PCP: Dr. Linda Alcantar, DO Status: REG [facility] Study: Breast Limited Unilateral Date of Exam: Exam# [id number] Ordering Dr: Lauren Lopez SCALER SCALER -C -[id number] STUDY: ULTRASOUND BREAST - LEFT REASON FOR EXAM: Female, 43 years old. Abnormal screening mammogram. TECHNIQUE: Axial and longitudinal images of the LEFT breast were performed with a high resolution ultrasound transducer. # OF IMAGES: [id number] COMPARISON: Comparison is made with prior mammogram dated June 30, 2024. FINDINGS: LEFT Breast: The upper and lateral aspects of the left breast is examined with ultrasound. The mammographic abnormality corresponds to an 8 mm x 8 mm x 3 mm well-defined hypoechoic nodule 4:00 position of the breast at 2 cm from the nipple. A similar hypoechoic nodule measuring 6 mm x 6 mm x 3 mm is seen at the 2:00 position of the breast at 6 cm from the nipple. These may represent small fibroadenomas. There is also evidence of a 5 mm x 5 mm x 2 mm cyst at the 10:00 position in the breast for 6 cm from the nipple. US/Breast Limited Unilateral IMPRESSION: There are 2 subcentimeter hypoechoic solid nodules at 2:00 and 4:00 position the breast as described. 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 Follow-up sonogram in 6 months recommended. ASSESSMENT CATEGORY: BIRADS Category 3: Probably Benign - Short-Interval Follow-up Suggested. A letter regarding these results will be sent to the patient by the facility within 30 days. Electronically Signed: Kumar Washington MD at 12:25 EDT , CC: SERENA Lopez; Dr. Linda Alcantar DO Supervisor Grounds: Signed Normal [facility] SCRN MAMM (CAD)W/ELISEO BILATo n 06-30-2024 SCRN MAMM (CAD)W/ELISEO BILAT [facility] [address] [place] [address] SCRN MAMM (CAD)W/ELISEO BILAT MR#: [id number] Acct: [id number] Name: EVENS RINCON Rep #: [id number] : 1980 F 43 From: Kumar de la rosa MD PCP: Dr. Linda Alcantar DO Status: REG CLI Study: SCRN MAMM (CAD)W/ELISEO BILAT Date of Exam: 06/11 10/03 Exam# [id number] Ordering Dr: Lauren Lopez NP SCALER -C -[id number] MAMMOGRAPHY - BILATERAL SCREENING REASON FOR EXAM: Female, 43 years old. Routine annual screening examination. PERTINENT HISTORY: Non-contributory. TECHNIQUE: Digital bilateral breast eliseo (3D mammographic acquisition) in the CC and MLO projections. 2-D mediolateral oblique (MLO) and craniocaudad (CC) views of both breasts were obtained. CAD: Full Field Digital Mammography with Computer Added Detection was performed. COMPARISON: Comparison is made with prior study June 29, 2023 and June 08, 2022. FINDINGS: Breast Composition: The breasts are heterogeneously dense, which may obscure small masses. There is a 6.9 mm x 7.1 mm well-defined nodule in the central the aspect of the left breast. There is also evidence of a 6.9 mm x 4.1 mm well-defined nodule in the anterior lower medial aspect of the left breast. Correlation with ultrasound is recommended. No other significant abnormalities are identified. BI/SCRN MAMM (CAD)W/ELISEO BILAT IMPRESSION: There are 2 well-defined nodules in the left breast as described. Correlation with ultrasound recommended. ASSESSMENT CATEGORY: BIRADS Category 0: Incomplete. Need additional imaging evaluation. A letter regarding these results will be sent to the patient by the facility within 30 days. Approximately 10% of breast cancers are not detected by mammography. A normal mammogram should not delay biopsy of a clinically suspicious abnormality. [id number] Electronically Signed: Kumar Washington MD at 11:08 EDT , CC: SERENA Lopez; Dr. Linda Alcantar, Supervisor Grounds: Signed Normal [facility] Basic Metabolic Profile (BMP )on 04-23-2024 BUN/CRE 17.7 RATIO Normal 10-20 [facility] Comment on above: Order Comment: 1 Performed By: #### L 501.1400, L504.2610, L100.0100, L500.2500, L400 #### [facility] [address] [place], [address] CA,Total 9.0 mg/dL Normal 8.5-10.1 [facility] Comment on above: Order Comment: 1 Performed By: #### L 501.1400, L504.2610, L100.0100, L500.2500, L400.2010 #### [facility] [address] [place], [address] Chloride [Moles/Vol] 104 mmol/L Normal 98-107 [facility] Comment on above: Order Comment: 1 Performed By: #### L 501.1400, L504.2610, L100.0100, L500.2500, L400.2010 #### [facility] [address] [place], [address] CO2 [Moles/Vol] 30.0 mmol/L Normal 21.0-32.0 [facility] Comment on above: Order Comment: 1 Performed By: #### L 501.1400, L504.2610, L100.0100, L500.2500, L400.2010 #### [facility] [address] [place], [address] Creatinine [Mass/Vol] 0.79 mg/dL Normal 0.55-1.02 [facility] Comment on above: Order Comment: 1 Result Comment: The validity of the calculated GFR GFRAA in patients over 70 years has not been determined. Clinical correlation is essential. Performed By: #### L 501.1400, L504.2610, L100.0100, L500.2500, L400.2010 #### [facility] [address] [place], [address] EST GFR - AA 103 mL/min Normal >60 [facility] Comment on above: Order Comment: 1 Result Comment: Afri can Angolan GFR Calc Performed By: #### L 501.1400, L504.2610, L100.0100, L500.2500, L400.2010 #### [facility] [address] [place], [address] GAP 4 Low 5-15 [facility] Comment on above: Order Comment: 1 Performed By: #### L 501.1400, L504.2610, L100.0100, L500.2500, L400.2010 #### [facility] [address] [place], [address] GFR/1.73 sq M.predicted among non-blacks MDRD (S/P/Bld) [Vol rate/Area] 85 mL/min/{1.73_m2} Normal >60 [facility] Comment on above: Order Comment: 1 Result Comment: Non- GFR Calc Performed By: #### L 501.1400, L504.2610, L100.0100, L500.2500, L400.2010 #### [facility] [address] [place], [address] Glucose [Mass/Vol] 105 mg/dL Normal 74-106 [facility] Comment on above: Order Comment: 1 Result Comment: Fast ing Glucose result from 100 to 125 mg/dL suggests IMPAIRED HOMEOSTASIS per A.D.A. criteria. Performed By: #### L 501.1400, L504.2610, L100.0100, L500.2500, L400.2010 #### [facility] [address] [place], [address] Potassium [Moles/Vol] 4.1 mmol/L Normal 3.5-5.1 [facility] Comment on above: Order Comment: 1 Performed By: #### L 501.1400, L504.2610, L100.0100, L500.2500, L400.2010 #### [facility] [address] [place], [address] Sodium [Moles/Vol] 138 mmol/L Normal 136-145 [facility] Comment on above: Order Comment: 1 Performed By: #### L 501.1400, L504.2610, L100.0100, L500.2500, L400.2010 #### [facility] [address] [place], [address] Urea nitrogen [Mass/Vol] 14 mg/dL Normal 7-18 [facility] Comment on above: Order Comment: 1 Performed By: #### L 501.1400, L504.2610, L100.0100, L500.2500, L400.2010 #### [facility] [address] [place], [address] CBC W/Diff, Automatedon 04-10 Absolute Lymph 1.16 X10 3/uL Normal 0.83-4.51 [facility] Comment on above: Performed By: #### L 501.1400, L504.2610, L100.0100, L500.2500, L400.2010 #### [facility] [address] [place], [address] Absolute Neut 3.3 X10 3/uL Normal 2.0-7.7 [facility] Comment on above: Performed By: #### L 501.1400, L504.2610, L100.0100, L500.2500, L400.2010 #### [facility] [address] [place], [address] Basophils/100 WBC (Bld) 0.6 % Normal 0-1 [facility] Comment on above: Performed By: #### L 501.1400, L504.2610, L100.0100, L500.2500, L400.2010 #### [facility] [address] [place], [address] Eosinophils/100 WBC (Bld) 0.4 % Normal 0-5 [facility] Comment on above: Performed By: #### L 501.1400, L504.2610, L100.0100, L500.2500, L400.2010 #### [facility] [address] [place], [address] Erythrocyte distribution width (RBC) [Ratio] 12.2 % Normal 11.6-14.6 [facility] Comment on above: Performed By: #### L 501.1400, L504.2610, L100.0100, L500.2500, L400.2010 #### [facility] [address] [place], [address] Hematocrit (Bld) [Volume fraction] 43.2 % Normal 37-47 [facility] Comment on above: Performed By: #### L 501.1400, L504.2610, L100.0100, L500.2500, L400.2010 #### [facility] [address] [place], [address] Hemoglobin (Bld) [Mass/Vol] 14.9 g/dL Normal 12.0-15.0 [facility] Comment on above: Performed By: #### L 501.1400, L504.2610, L100.0100, L500.2500, L400.2010 #### [facility] [address] [place], [address] IG% 0.400 Normal 0.0-0.9 [facility] Comment on above: Result Comment: IG% - Immature Granulocytes (promyelocytes, myelocytes and metamyelocytes) > 1% indicates that a LEFT SHIFT is Present. Performed By: #### L 501.1400, L504.2610, L100.0100, L500.2500, L400 #### [facility] [address] [place], [address] Lymphocytes/100 WBC (Bld) 23.9 % Normal 19-41 [facility] Comment on above: Performed By: #### L 501.1400, L504.2610, L100.0100, L500.2500, L400.2010 #### [facility] [address] [place], [address] MCH (RBC) [Entitic mass] 28.5 pg Normal 27.0-32.0 [facility] Comment on above: Performed By: #### L 501.1400, L504.2610, L100.0100, L500.2500, L400.2010 #### [facility] [address] [place], [address] MCHC (RBC) [Mass/Vol] 34.5 g/dL Normal 32-36 [facility] Comment on above: Performed By: #### L 501.1400, L504.2610, L100.0100, L500.2500, L400.2010 #### [facility] [address] [place], [address] MCV (RBC) [Entitic vol] 82.8 fL Normal 81-99 [facility] Comment on above: Performed By: #### L 501.1400, L504.2610, L100.0100, L500.2500, L400.2010 #### [facility] [address] [place], [address] Monocytes/100 WBC (Bld) 7.6 % Normal 0-10 [facility] Comment on above: Performed By: #### L 501.1400, L504.2610, L100.0100, L500.2500, L400.2010 #### [facility] [address] [place], [address] Neutrophils/100 WBC (Bld) 67.1 % Normal 47-70 [facility] Comment on above: Performed By: #### L 501.1400, L504.2610, L100.0100, L500.2500, L400.2010 #### [facility] [address] [place], [address] Nucleated RBC (Bld) [#/Vol] 0 10*3/uL Normal 0-5 [facility] Comment on above: Performed By: #### L 501.1400, L504.2610, L100.0100, L500.2500, L400.2010 #### [facility] [address] [place], [address] Platelet mean volume (Bld) [Entitic vol] 9.2 fL Normal 6.2-12.0 [facility] Comment on above: Performed By: #### L 501.1400, L504.2610, L100.0100, L500.2500, L400.2010 #### [facility] [address] [place], [address] Platelets (Bld) [#/Vol] 276 10*3/uL Normal 150-450 [facility] Comment on above: Performed By: #### L 501.1400, L504.2610, L100.0100, L500.2500, L400.2010 #### [facility] [address] [place], [address] RBC (Bld) [#/Vol] 5.22 10*6/uL Normal 4.2-5.4 [facility] Comment on above: Performed By: #### L 501.1400, L504.2610, L100.0100, L500.2500, L400.2010 #### [facility] [address] [place], [address] RDW SD 36.6 fl Normal 35.1-43.9 [facility] Comment on above: Performed By: #### L 501.1400, L504.2610, L100.0100, L500.2500, L400.2010 #### [facility] [address] [place], [address] WBC (Bld) [#/Vol] 4.9 10*3/uL Normal 4.4-11.0 [facility] Comment on above: Performed By: #### L 501.1400, L504.2610, L100.0100, L500.2500, L400.2010 #### [facility] [address] [place], [address] LDHon 04-23-2024 LDH 177 U/L Normal 84-246 [facility] Comment on above: Order Comment: 1 Performed By: #### L 501.1400, L504.2610, L100.0100, L500.2500, L400.2010 #### [facility] [address] [place], [address] Uric Acidon 04-23-2024 URIC 5.3 mg/dL Normal 2.6-6.0 [facility] Comment on above: Order Comment: 1 Result Comment: The drugs N-Acetylcysteine and Metamizole may falsely depress this assay. Performed By: #### L 501.1400, L504.2610, L100.0100, L500.2500, L400.2010 #### [facility] [address] [place], [address] Urinalysis, Routine (Dipstic k)on 04-23-2024 BILIRUBIN URINE Negative Normal Negative [facility] Comment on above: Order Comment: Urine , Random Performed By: #### L 501.1400, L504.2610, L100.0100, L500.2500, L400.2010 #### [facility] [address] [place], [address] Clarity (U) Clear Normal Clear [facility] Comment on above: Order Comment: Urine , Random Performed By: #### L 501.1400, L504.2610, L100.0100, L500.2500, L400.2010 #### [facility] [address] [place], [address] Color (U) Yellow Normal Yellow [facility] Comment on above: Order Comment: Urine , Random Performed By: #### L 501.1400, L504.2610, L100.0100, L500.2500, L400.2010 #### [facility] [address] [place], [address] GLUCOSE, UR Normal Normal Normal [facility] Comment on above: Order Comment: Urine , Random Performed By: #### L 501.1400, L504.2610, L100.0100, L500.2500, L400.2010 #### [facility] [address] [place], [address] KETONE UR Negative Normal Negative [facility] Comment on above: Order Comment: Urine , Random Performed By: #### L 501.1400, L504.2610, L100.0100, L500.2500, L400.2010 #### [facility] [address] [place], [address] LEUK ESTERASE Negative Normal Negative [facility] Comment on above: Order Comment: Urine , Random Performed By: #### L 501.1400, L504.2610, L100.0100, L500.2500, L400.2010 #### [facility] [address] [place], [address] Nitrite Ql (U) Negative Normal Negative [facility] Comment on above: Order Comment: Urine , Random Performed By: #### L 501.1400, L504.2610, L100.0100, L500.2500, L400.2010 #### [facility] [address] [place], [address] OCCULT BLOOD-UR Negative Normal Negative [facility] Comment on above: Order Comment: Urine , Random Performed By: #### L 501.1400, L504.2610, L100.0100, L500.2500, L400.2010 #### [facility] [address] [place], [address] pH UR 6.5 Normal 5.0 - 8.0 [facility] Comment on above: Order Comment: Urine , Random Performed By: #### L 501.1400, L504.2610, L100.0100, L500.2500, L400.2010 #### [facility] [address] [place], [address] PROT DIPSTX Negative Normal Negative [facility] Comment on above: Order Comment: Urine , Random Performed By: #### L 501.1400, L504.2610, L100.0100, L500.2500, L400.2010 #### [facility] [address] [place], [address] SP.GR. DIPSTX 1.010 Normal 1.002-1.030 [facility] Comment on above: Order Comment: Urine , Random Performed By: #### L 501.1400, L504.2610, L100.0100, L500.2500, L400.2010 #### [facility] [address] [place], [address] UROBILI Normal Normal Normal [facility] Comment on above: Order Comment: Urine , Random Performed By: #### L 501.1400, L504.2610, L100.0100, L500.2500, L400.2010 #### [facility] [address] [place], [address] Absolute lymphocyte countOrd ered By: HEALTH ASSESSMENT on 04-12-2023 Lymphocytes Auto (Unsp spec) [#/Vol] 1.31 10*3/uL 0.83-4.51 [facility] Absolute reticulocyte countO rdered By: HEALTH ASSESSMENT on 04-12-2023 Reticulocytes (Bld) [#/Vol] 0.00 10*3/uL 0-5 [facility] Basophil percentageOrdered B y: HEALTH ASSESSMENT on 04-12-2023 Basophil percentage 2.5 mg/dL 2.5-4.9 [facility] Bilirubin [Mass/Vol] 0.70 mg/dL 0.20-1.00 [facility] Comment on above: For patients on eltr ombopag therapy, use of Dimension [place] TBIL is not recommended. Chloride [Moles/Vol] 104 mmol/L 98-107 [facility] Cholesterol [Mass/Vol] 170 mg/dL <200 [facility] Comment on above: <200 mg/dL Desirable 200-240 mg/dL Borderline >240 mg/dL High Risk Glucose [Mass/Vol] 91 mg/dL 74-106 [facility] LDH [Catalytic activity/Vol] 168 U/L 84-246 [facility] Neutrophils (Bld) [#/Vol] 2.4 10*3/uL 2.0-7.7 [facility] Potassium [Moles/Vol] 4.3 mmol/L 3.5-5.1 [facility] Protein [Mass/Vol] 6.8 g/dL 6.4-8.2 [facility] Sodium [Moles/Vol] 138 mmol/L 136-145 [facility] Triglyceride [Mass/Vol] 42 mg/dL <199 [facility] Comment on above: The drugs N-Acetylcy steine and Metamizole may falsely depress this assay.Serum Triglycerides Reference Interval Normal <150 mg/dL Borderline high 150 - 199 mg/dL High 200 - 499 mg/dL Very High > or = 500 mg/dL WBC (Bld) [#/Vol] 4.2 10*3/uL 4.4-11.0 [facility] Bilirubin Test strip Ql (U)O rdered By: HEALTH ASSESSMENT on 04-12-2023 Bilirubin Ql (U) Negative Negative [facility] Blood erythrocytes count (nu mber/volume)Ordered By: HEALTH ASSESSMENT on 04-12-2023 RBC (Bld) [#/Vol] 5.14 10*6/uL 4.2-5.4 [facility] Blood hemoglobin measurement (mass/volume)Ordered By: HEALTH ASSESSMENT on 04-12-2023 Hemoglobin (Bld) [Mass/Vol] 15.1 g/dL 12.0-15.0 [facility] Blood platelet mean volumeOr dered By: HEALTH ASSESSMENT on 04-12-2023 Platelet mean volume (Bld) [Entitic vol] 9.4 fL 6.2-12.0 [facility] Determination of erythrocyte mean corpuscular volume (MCV)Ordered By: HEALTH ASSESSMENT on 04-12-2023 MCV (RBC) [Entitic vol] 83.9 fL 81-99 [facility] Direct bilirubinOrdered By: HEALTH ASSESSMENT on 04-12-2023 Bilirubin.direct [Mass/Vol] 0.16 mg/dL 0.00-0.30 [facility] Hematocrit Auto (Bld) [Volum e fraction]Ordered By: HEALTH ASSESSMENT on 04-12-2023 Hematocrit (Bld) [Volume fraction] 43.1 % 37-47 [facility] Ketones Test strip Ql (U)Ord ered By: HEALTH ASSESSMENT on 04-12-2023 Ketones Ql (U) Negative Negative [facility] - Chemistry and C hemistry - challengeOrdered By: HEALTH ASSESSMENT on 04-12-2023 ALP [Catalytic activity/Vol] 46 U/L 45-117 [facility] ALT [Catalytic activity/Vol] 17 U/L 13-56 [facility] Cholesterol.total/Lenora sterol in HDL [Mass ratio] 2.50 {ratio} [facility] CO2 [Moles/Vol] 27.0 mmol/L 21.0-32.0 [facility] Globulin (S) [Mass/Vol] 3.1 g/dL 2.2-4.2 [facility] Urea nitrogen/Creatinine [Mass ratio] 15.4 mg/mg 10-20 [facility] - Hematology and Cell countsOrdered By: HEALTH ASSESSMENT on 04-12-2023 Erythrocyte distribution width (RBC) [Entitic vol] 38.4 fL 35.1-43.9 [facility] Erythrocyte distribution width (RBC) [Ratio] 12.5 % 11.6-14.6 [facility] MCH (RBC) [Entitic mass] 29.4 pg 27.0-32.0 [facility] Nucleated RBC/100 WBC (Bld) [Ratio] 0 % 0-5 [facility] MCHC Auto (RBC) [Mass/Vol]Or dered By: HEALTH ASSESSMENT on 04-12-2023 MCHC (RBC) [Mass/Vol] 35.0 g/dL 32-36 [facility] Nitrite Test strip Ql (U)Ord ered By: HEALTH ASSESSMENT on 04-12-2023 Nitrite Ql (U) Negative Negative [facility] No Panel InformationOrdered By: HEALTH ASSESSMENT on 04-12-2023 Estimated GFR (MDRD) Amer 87 mL/min >60 [facility] Comment on above: GFR Calc Estimated GFR (MDRD) Non-Af Amer 72 mL/min >60 [facility] Comment on above: Non- GFR Calc Platelets bldOrdered By: NIKITA [facility] ASSESSMENT on 04-12-2023 Platelets (Bld) [#/Vol] 332 10*3/uL 150-450 [facility] Protein Test strip Ql (U)Ord ered By: HEALTH ASSESSMENT on 04-12-2023 Protein Ql (U) Negative Negative [facility] Segmented neutrophils/100 WB C Auto (Bld)Ordered By: HEALTH ASSESSMENT on 04-12-2023 Segmented neutrophils/100 WBC (Bld) 57.0 % 47-70 [facility] Serum or plasma albumin pat urement (mass/volume)Ordered By: HEALTH ASSESSMENT on 04-12-2023 Albumin [Mass/Vol] 3.7 g/dL 3.2-5.0 [facility] Serum or plasma albumin/glob ulin mass ratioOrdered By: HEALTH ASSESSMENT on 04-12-2023 Albumin/Globulin [Mass ratio] 1.2 {ratio} 0.9-2.4 [facility] Serum or plasma calcium pat urement (mass/volume)Ordered By: HEALTH ASSESSMENT on 04-12-2023 Calcium [Mass/Vol] 8.5 mg/dL 8.5-10.1 [facility] Serum or plasma cholesterol in HDL measurement (mass/volume)Ordered By: HEALTH ASSESSMENT on 04-12-2023 Cholesterol in HDL [Mass/Vol] 67 mg/dL >40 [facility] Comment on above: The drugs N-Acetylcy steine and Metamizole may falsely depress this assay. Reference Range HDL <40 mg/dL Low HDL Cholesterol HDL >or= 60 mg/dL High HDL Cholesterol Serum or plasma cholesterol in VLDL measurement (mass/volume)Ordered By: HEALTH ASSESSMENT on 04-12-2023 Cholesterol in VLDL [Mass/Vol] 8 mg/dL 5-40 [facility] Serum or plasma creatinine m easurement (mass/volume)Ordered By: HEALTH ASSESSMENT on 04-12-2023 Creatinine [Mass/Vol] 0.91 mg/dL 0.55-1.02 [facility] Comment on above: The validity of the calculated GFR & GFRAA in patients over 70 years has not been determined. Clinical correlation is essential. Serum or plasma low density lipoprotein (LDL) cholesterol measurement (mass/volume)Ordered By: HEALTH ASSESSMENT on 04-12-2023 Cholesterol in LDL [Mass/Vol] 95 mg/dL 0-130 [facility] Serum or plasma urea nitroge n measurement (mass/volume)Ordered By: HEALTH ASSESSMENT on 04-12-2023 Urea nitrogen [Mass/Vol] 14 mg/dL 7-18 [facility] Serum or plasma uric acid me asurement (mass/volume)Ordered By: HEALTH ASSESSMENT on 04-12-2023 Urate [Mass/Vol] 6.7 mg/dL 2.6-6.0 [facility] Comment on above: The drugs N-Acetylcy steine and Metamizole may falsely depress this assay. Thin prep Papanicolaou smear with manual screeningOrdered By: HEALTH ASSESSMENT on 04-12-2023 Thin prep Papanicolaou smear with manual screening 15 U/L 15-37 [facility] Thin prep Papanicolaou smear with manual screening 7 5-15 [facility] Urine blood detectionOrdered By: HEALTH ASSESSMENT on 04-12-2023 RBC Ql (U) 25 /ul Negative [facility] Urine clarityOrdered By: HEA LTH ASSESSMENT on 04-12-2023 Clarity (U) Sl. Cloudy Clear [facility] Urine color determinationOrd ered By: HEALTH ASSESSMENT on 04-12-2023 Color (U) Yellow Yellow [facility] Urine glucose detectionOrder ed By: HEALTH ASSESSMENT on 04-12-2023 Glucose Ql (U) Normal mg/dl Normal [facility] Urine leukocyte esterase det ection by dipstickOrdered By: HEALTH ASSESSMENT on 04-12-2023 Leukocyte esterase Test strip Ql (U) Negative Negative [facility] Urine pHOrdered By: HEALTH A SSESSMENT on 04-12-2023 pH (U) 6.5 [pH] 5.0 - 8.0 [facility] Urine specific gravity measu rementOrdered By: HEALTH ASSESSMENT on 04-12-2023 Specific gravity (U) [Rel density] 1.010 1.002-1.030 [facility] Urobilinogen Auto test strip Ql (U)Ordered By: HEALTH ASSESSMENT on 04-12-2023 Urobilinogen Ql (U) Normal mg/dl Normal [facility] Cervical or vagninal specime n microscopic examination by cytology stain (reported ason 05-29-2022 Cytology report Cyto stain Doc (Cvx/Vag) Comment . [facility] Work Phone: Comment on above: The Pap smear is a s creening test designed to aid in thedetection of premalignant and malignant conditions of theuterine cervix. It is not a diagnostic procedure andshould not be used as the sole means of detecting cervicalcancer. Both false-positive and false-negative reports dooccur. Detection in cervical specim en of any of human papilloma virus (HPV) 16, 18, 31, 33,on 05-29-2022 HPV 16+18+31+33+35+39+45+51 +52+56+58+59+66+68 DNA Probe+sig amp Ql (Cvx) Negative Negative [facility] Work Phone: Comment on above: This nucleic acid am plification test detects fourteen high-risk HPV types (16,18,31,33,35,39,45,51,52,56,58,59,66,68)without differentiation.Performed at: [facility] - [facility] [id number] Director: Virgie Maria MD, Phone: [phone] at: =G - [facility] [address] [id number] Director: Virgie Maria MD, Phone: [phone] Laboratory - Cytologyon 05-11 Digital Specialist Cyto stain Nom (Cvx/Vag) [ID] Comment . [facility] Work Phone: Comment on above: Ivy Gonzalez, Cyto technologist (ASCP) Laboratory - Miscellaneous t estson 05-29-2022 Service comment (Unsp spec) [Interp] Comment . [facility] Work Phone: Comment on above: This liquid based Th inPrep(R) pap test was screened withthe use of an image guided system. Service comment (Unsp spec) [Interp] . . [facility] Work Phone: No Panel Informationon 05-29 Pathology report final diagnosis Narrative Comment . [facility] Work Phone: Comment on above: NEGATIVE FOR INTRAEP ITHELIAL LESION OR MALIGNANCY. Absolute lymphocyte counton 04-06-2022 Lymphocytes Auto (Unsp spec) [#/Vol] 1.29 10*3/uL 0.83-4.51 [facility] Work Phone: Absolute reticulocyte counto n 04-06-2022 Reticulocytes (Bld) [#/Vol] 0.00 10*3/uL 0-5 [facility] Work Phone: Basophil percentageon 2021 Basophil percentage 3.0 mg/dL 2.5-4.9 [facility] Work Phone: Bilirubin [Mass/Vol] 0.70 mg/dL 0.20-1.00 [facility] Work Phone: Comment on above: For patients on eltr ombopag therapy, use of Dimension [place] TBIL is not recommended. Chloride [Moles/Vol] 105 mmol/L 98-107 [facility] Work Phone: Cholesterol [Mass/Vol] 163 mg/dL <200 [facility] Work Phone: Comment on above: <200 mg/dL Desirable 200-240 mg/dL Borderline >240 mg/dL High Risk Glucose [Mass/Vol] 96 mg/dL 74-106 [facility] Work Phone: Neutrophils (Bld) [#/Vol] 2.6 10*3/uL 2.0-7.7 [facility] Work Phone: Potassium [Moles/Vol] 4.1 mmol/L 3.5-5.1 [facility] Work Phone: Protein [Mass/Vol] 6.4 g/dL 6.4-8.2 [facility] Work Phone: Sodium [Moles/Vol] 139 mmol/L 136-145 [facility] Work Phone: Triglyceride [Mass/Vol] 45 mg/dL <199 [facility] Work Phone: Comment on above: The drugs N-Acetylcy steine and Metamizole may falsely depress this assay.Serum Triglycerides Reference Interval Normal <150 mg/dL Borderline high 150 - 199 mg/dL High 200 - 499 mg/dL Very High > or = 500 mg/dL WBC (Bld) [#/Vol] 4.3 10*3/uL 4.4-11.0 [facility] Work Phone: Bilirubin Test strip Ql (U)o n 04-06-2022 Bilirubin Ql (U) Negative Negative [facility] Work Phone: Blood erythrocytes count (nu mber/volume)on 04-06-2022 RBC (Bld) [#/Vol] 5.19 10*6/uL 4.2-5.4 [facility] Work Phone: Blood hemoglobin measurement (mass/volume)on 04-06-2022 Hemoglobin (Bld) [Mass/Vol] 14.8 g/dL 12.0-15.0 [facility] Work Phone: Blood platelet mean volumeon 04-06-2022 Platelet mean volume (Bld) [Entitic vol] 9.4 fL 6.2-12.0 [facility] Work Phone: Determination of erythrocyte mean corpuscular volume (MCV)on 04-06-2022 MCV (RBC) [Entitic vol] 82.7 fL 81-99 [facility] Work Phone: Direct bilirubinon Bilirubin.direct [Mass/Vol] 0.13 mg/dL 0.00-0.30 [facility] Work Phone: Hematocrit Auto (Bld) [Volum e fraction]on 04-06-2022 Hematocrit (Bld) [Volume fraction] 42.9 % 37-47 [facility] Work Phone: Ketones Test strip Ql (U)on 04-06-2022 Ketones Ql (U) Negative Negative [facility] Work Phone: Laboratory - Chemistry and C hemistry - challengeon 04-06-2022 ALP [Catalytic activity/Vol] 38 U/L 45-117 [facility] Work Phone: ALT [Catalytic activity/Vol] 15 U/L 13-56 [facility] Work Phone: Cholesterol.total/Lenora sterol in HDL [Mass ratio] 2.70 {ratio} [facility] Work Phone: CO2 [Moles/Vol] 29.0 mmol/L 21.0-32.0 [facility] Work Phone: Globulin (S) [Mass/Vol] 2.8 g/dL 2.2-4.2 [facility] Work Phone: Urea nitrogen/Creatinine [Mass ratio] 16.0 mg/mg 10-20 [facility] Work Phone: Laboratory - Hematology and Cell countson 04-06-2022 Erythrocyte distribution width (RBC) [Entitic vol] 37.9 fL 35.1-43.9 [facility] Work Phone: Erythrocyte distribution width (RBC) [Ratio] 12.7 % 11.6-14.6 [facility] Work Phone: MCH (RBC) [Entitic mass] 28.5 pg 27.0-32.0 [facility] Work Phone: Nucleated RBC/100 WBC (Bld) [Ratio] 0 % 0-5 [facility] Work Phone: MCHC Auto (RBC) [Mass/Vol]on 04-06-2022 MCHC (RBC) [Mass/Vol] 34.5 g/dL 32-36 [facility] Work Phone: Nitrite Test strip Ql (U)on 04-06-2022 Nitrite Ql (U) Negative Negative [facility] Work Phone: No Panel Informationon 04-06 Estimated GFR (MDRD) Amer 92 mL/min >60 [facility] Work Phone: Comment on above: GFR Calc Estimated GFR (MDRD) Non-Af Amer 76 mL/min >60 [facility] Work Phone: Comment on above: Non- GFR Calc Platelets bldon 04-06-2022 Platelets (Bld) [#/Vol] 312 10*3/uL 150-450 [facility] Work Phone: Protein Test strip Ql (U)on 04-06-2022 Protein Ql (U) Negative Negative [facility] Work Phone: Segmented neutrophils/100 WB C Auto (Bld)on 04-06-2022 Segmented neutrophils/100 WBC (Bld) 59.4 % 47-70 [facility] Work Phone: Serum or plasma albumin pat urement (mass/volume)on 04-06-2022 Albumin [Mass/Vol] 3.6 g/dL 3.2-5.0 [facility] Work Phone: Serum or plasma albumin/glob ulin mass ratioon 04-06-2022 Albumin/Globulin [Mass ratio] 1.3 {ratio} 0.9-2.4 [facility] Work Phone: Serum or plasma calcium pat urement (mass/volume)on 04-06-2022 Calcium [Mass/Vol] 8.2 mg/dL 8.5-10.1 [facility] Work Phone: Serum or plasma cholesterol in HDL measurement (mass/volume)on 04-06-2022 Cholesterol in HDL [Mass/Vol] 61 mg/dL >40 [facility] Work Phone: Comment on above: The drugs N-Acetylcy steine and Metamizole may falsely depress this assay. Reference Range HDL <40 mg/dL Low HDL Cholesterol HDL >or= 60 mg/dL High HDL Cholesterol Serum or plasma cholesterol in VLDL measurement (mass/volume)on 04-06-2022 Cholesterol in VLDL [Mass/Vol] 9 mg/dL 5-40 [facility] Work Phone: Serum or plasma creatinine m easurement (mass/volume)on 04-06-2022 Creatinine [Mass/Vol] 0.88 mg/dL 0.55-1.02 [facility] Work Phone: Comment on above: The validity of the calculated GFR & GFRAA in patients over 70 years has not been determined. Clinical correlation is essential. Serum or plasma low density lipoprotein (LDL) cholesterol measurement (mass/volume)on 04-06-2022 Cholesterol in LDL [Mass/Vol] 93 mg/dL 0-130 [facility] Work Phone: Serum or plasma urea nitroge n measurement (mass/volume)on 04-06-2022 Urea nitrogen [Mass/Vol] 14 mg/dL 7-18 [facility] Work Phone: Serum or plasma uric acid me asurement (mass/volume)on 04-06-2022 Urate [Mass/Vol] 5.5 mg/dL 2.6-6.0 [facility] Work Phone: Comment on above: The drugs N-Acetylcy steine and Metamizole may falsely depress this assay. Thin prep Papanicolaou smear with manual screeningon 04-06-2022 Thin prep Papanicolaou smear with manual screening 9 U/L 15-37 [facility] Work Phone: Thin prep Papanicolaou smear with manual screening 5 5-15 [facility] Work Phone: Thin prep Papanicolaou smear with manual screening 160 U/L 84-246 [facility] Work Phone: Urine blood detectionon 03-11 RBC Ql (U) 25 /ul Negative [facility] Work Phone: Urine clarityon 04-06-2022 Clarity (U) Clear Clear [facility] Work Phone: Urine color determinationon 04-06-2022 Color (U) Yellow Yellow [facility] Work Phone: Urine glucose detectionon Glucose Ql (U) Normal mg/dl Normal [facility] Work Phone: Urine leukocyte esterase det ection by dipstickon 04-06-2022 Leukocyte esterase Test strip Ql (U) Negative Negative [facility] Work Phone: Urine pHon 04-06-2022 pH (U) 7.0 [pH] 5.0 - 8.0 [facility] Work Phone: Urine specific gravity measu rementon 04-06-2022 Specific gravity (U) [Rel density] 1.010 1.002-1.030 [facility] Work Phone: Urobilinogen Auto test strip Ql (U)on 04-06-2022 Urobilinogen Ql (U) Normal mg/dl Normal [facility] Work Phone: No Panel Informationon 09-01 SARS-CoV-2 Antigen (Rapid) [facility] Work Phone: Office Visit: IUD Insertiono n 07-02-2017 Documentation of current medications (procedure) Done Invalid Interpretation Code [facility] Fall risk assessment No Invalid Interpretation Code [facility] Tobacco smoking status NHIS Never Invalid Interpretation Code [facility] Tobacco use CPHS Never smoker Invalid Interpretation Code [facility] Lab Report: PAP I-G HPV Hi R iskon 05-25-2017 HPV HC,HGH RISK Negative Invalid Interpretation Code Negative [facility] Lab Report: CBC, Employeeon 05-23-2017 Absolute Neut 2.0 X10 3/UL Invalid Interpretation Code 2.0-7.7 [facility] Basophils/100 WBC Auto (Bld) 0.3 % Invalid Interpretation Code 0-1 [facility] Eosinophils/100 leukocytes 1.3 % Invalid Interpretation Code 0-5 [facility] Erythrocyte distribution width Auto Ratio (RBC) 13.2 % Invalid Interpretation Code 11.6-14.6 [facility] Erythrocytes (RBC) 4.73 10*6/uL Invalid Interpretation Code 4.2-5.4 [facility] Hematocrit (HCT) 38.5 % Invalid Interpretation Code 37-47 [facility] Hemoglobin mass conc (Bld) 13.7 g/dL Invalid Interpretation Code 12.0-15.0 [facility] Lymphocytes 1.21 X10 3/UL Invalid Interpretation Code 0.83-4.51 [facility] Lymphocytes/100 leukocytes 32.4 % Invalid Interpretation Code 19-41 [facility] MCH 29.0 pg Invalid Interpretation Code 27.0-32.0 [facility] MCHC mass conc (RBC) 35.6 G/GL Invalid Interpretation Code 32-36 [facility] MCV 81.4 fL Invalid Interpretation Code 81-99 [facility] Monocytes/100 leukocytes 11.5 % High 0-10 [facility] Neutrophils/100 WBC Auto (Bld) 54.5 % Invalid Interpretation Code 47-70 [facility] Platelets 238 10*3/mm3 Invalid Interpretation Code 150-450 [facility] PMV by Vito 10.0 fL Invalid Interpretation Code 6.2-12.0 [facility] RDW SD 38.0 fL Invalid Interpretation Code 35.1-43.9 [facility] WBC (Leukocytes) 3.7 10*3/uL Low 4.4-11.0 [facility] Lab Report: Employee Profile on 05-23-2017 Alanine aminotransferase (ALT) 19 U/L Invalid Interpretation Code 12-78 [facility] Albumin 3.6 g/dL Invalid Interpretation Code 3.4-5.0 [facility] Albumin/Globulin Ratio 1.2 {ratio} Invalid Interpretation Code 0.9-2.4 [facility] Alkaline phosphatase (ALP) 44 U/L Low 45-117 [facility] Anion gap 9 mmol/L Invalid Interpretation Code 5-15 [facility] Aspartate aminotransferase (AST) 12 U/L Low 15-[address] [facility] Bilirubin (direct) 0.17 mg/dL Invalid Interpretation Code 0.00-0.30 [facility] Bilirubin (total) 0.70 mg/dL Invalid Interpretation Code 0.20-1.00 [facility] BUN/Creatinine Ratio 17.2 RATIO Invalid Interpretation Code 10-20 [facility] Calcium 8.1 mg/dL Low 8.5-10.1 [facility] Chloride 106 mmol/L Invalid Interpretation Code 98-107 [facility] Cholesterol 147 mg/dL Invalid Interpretation Code 200 [facility] CO2 28.0 mmol/L Invalid Interpretation Code 21.0-32.0 [facility] Creatinine 0.76 mg/dL Invalid Interpretation Code 0.55-1.02 [facility] eGFR (non-black) 112 mL/min/{1.73_m2} Invalid Interpretation Code >60 [facility] eGFR (non-black) 92 mL/min/{1.73_m2} Invalid Interpretation Code >60 [facility] Globulin 2.9 g/dL Invalid Interpretation Code 2.3-3.5 [facility] Glucose mass conc 88 mg/dL Invalid Interpretation Code 70-110 [facility] HDL Cholesterol 64 mg/dL Invalid Interpretation Code [facility] LDH 175 U/L Invalid Interpretation Code 84-246 [facility] LDL Cholesterol 71 mg/dL Invalid Interpretation Code 0-130 [facility] PHOS 2.8 mg/dL Invalid Interpretation Code 2.5-4.9 [facility] Potassium molar conc 3.9 mmol/L Invalid Interpretation Code 3.5-5.1 [facility] Protein 6.5 g/dL Invalid Interpretation Code 6.4-8.2 [facility] Sodium 143 mmol/L Invalid Interpretation Code 136-145 [facility] Triglyceride 59 mg/dL Invalid Interpretation Code [facility] Urate 5.5 mg/dL Invalid Interpretation Code 2.6-6.0 [facility] Urea nitrogen 13 mg/dL Invalid Interpretation Code 7-18 [facility] very low density lipoproteins 12 mg/dL Invalid Interpretation Code 5-40 [facility] Lab Report: Urinalysis, Empl oyeeon 05-23-2017 Bilirubin Ql (U) Negative Invalid Interpretation Code Negative [facility] NITRITE UR Negative Invalid Interpretation Code Negative [facility] OCCULT BLOOD-UR 10 High Negative [facility] specific gravity, urine 1.015 Invalid Interpretation Code 1.002-1.030 [facility] Urine, clarity Sl. Cloudy Invalid Interpretation Code Clear [facility] Urine, color Yellow Invalid Interpretation Code Yellow [facility] Urine, glucose presence Normal mg/dl Invalid Interpretation Code Normal [facility] Urine, ketones presence Negative Invalid Interpretation Code Negative [facility] Urine, leukocyte esterase presence Negative Invalid Interpretation Code Negative [facility] Urine, pH 6.0 [pH] Invalid Interpretation Code 5.0 - 8.0 [facility] Urine, protein 15 mg/dL High Negative [facility] UROBILI Normal mg/dl Invalid Interpretation Code Normal [facility] Office Visit: new annualon 0 05-21-2017 Hemoglobin presence in stool not done Invalid Interpretation Code [facility] Office Visit: IUD Insertiono n 06-10-2016 General categories [Interpretation] of Cervical or vaginal smear or scraping by Cyto stain Normal Invalid Interpretation Code [facility] Vital Signs Date Time Vital Sign Value Performing Clinician Robyn barnes 01-27-2025 08:45-0400 Body height 162.[address] Linda Alcantar DO Work Phone: [facility] 01-27-2025 08:45-0400 Body mass index (BMI) [Ratio] 29.2 kg/m2 Dr. Linda Alcantar DO Work Phone: [facility] 01-27-2025 08:45-0400 Body weight 77.[address] Linda Alcantar DO Work Phone: [facility] 06-25-2023 08:12-0400 Body height 162.[address] Linda Alcantar Work Phone: [facility] 06-25-2023 08:04-0400 Body mass index (BMI) [Ratio] 29.2 kg/m2 Dr. Linda Alcantar Work Phone: [facility] 06-25-2023 08:04-0400 Body weight 77.[address] Linda Alcantar Work Phone: [facility] 06-25-2023 08:04-0400 Diastolic blood pressure 84 mm[Hg] Dr. Linda Alcantar Work Phone: [facility] 06-25-2023 08:04-0400 Systolic blood pressure 120 mm[Hg] Dr. Linda Alcantar Work Phone: [facility] 05-29-2022 10:09-0400 Body height 162.[address] Linda Alcantar Work Phone: [facility] Work Phone: 05-29-2022 10:09-0400 Body mass index (BMI) [Ratio] 27.3 kg/m2 Dr. Linda Alcantar Work Phone: [facility] Work Phone: 05-29-2022 10:09-0400 Body weight 72.[address] Linda Alcantar Work Phone: [facility] Work Phone: 09-19-2022 10:09-0400 Diastolic blood pressure 78 mm[Hg] Dr. Linda Alcantar Work Phone: [facility] Work Phone: 05-29-2022 10:09-0400 Systolic blood pressure 120 mm[Hg] Dr. Linda Alcantar Work Phone: [facility] Work Phone: 07-02-2017 09:09-0400 BMI (Body Mass Index) 27.77 kg/m2 Sophia Castle MD [facility] 07-02-2017 09:09-0400 Body Temperature 98.2 [degF] Sophia Castle MD [facility] 07-02-2017 09:09-0400 BP Diastolic 68 mm[Hg] Sophia Castle MD [facility] 07-02-2017 09:09-0400 BP Systolic 106 mm[Hg] Sophia Castle MD [facility] 07-02-2017 09:09-0400 Height 162.56 cm Sophia Caslte MD [facility] 07-02-2017 09:09-0400 Pulse (Heart Rate) 70 /min Sophia Castle MD [facility] 07-02-2017 09:09-0400 Respiratory Rate 16 /min Sophia Castle MD [facility] 07-02-2017 09:09-0400 Weight 73.39 kg Sophia Castle MD [facility] Encounters Encounter Date Encounter Type Care Provider Facility Start: 02-14-2025 ambulatory Zaki Jay Facility :[facility] Start: 02-11-2025 [facility] Start: 01-27-2025 End: 01-27-[address] Zaki Jay MD -[facility] Work Phone: Start: 01-27-2025 End: 01-27-[address] Linda Alcantar DO Work Phone: [facility] Work Phone: Start: 10-13-2024 End: 10-13-[address] Zaki Jay MD -[facility] Work Phone: Start: 10-13-2024 End: 10-13-2024 ambulatory Zaki Jay Facility:[facility] Start: 10-06-2024 End: 10-06-[address] Zaki Jay MD -[facility] Work Phone: Start: 10-06-2024 End: 10-06-2024 ambulatory Zaki Jay Facility:[facility] Start: 09-29-2024 End: 09-29-[address] Zaki Jay MD -[facility] Work Phone: Start: 09-29-2024 End: 09-29-2024 ambulatory Zaki Roachison Facility:[facility] Start: 09-11-2024 End: 09-11-2024 ambulatory Zaki Roachison Facility:[facility] Start: 09-09-2024 End: 09-09-2024 ambulatory Zaki Roachison Facility:[facility] Start: 07-28-2024 ambulatory Sulma PRATT Faci lity:[facility] Start: 07-28-2024 End: 07-28-2024 ambulatory Sulma PRATT Facility:[facility] Start: 07-11-2024 End: 07-11-2024 ambulatory Marylou Morales Facility:[facility] Start: 07-07-2024 End: 07-07-2024 ambulatory Kandy Bo Facility:[facility] Start: 07-03-2024 End: 07-03-2024 ambulatory [place] Facility:[facility] Start: 06-30-2024 End: 06-30-2024 ambulatory [place] Facility:[facility] Start: 04-23-2024 ambulatory Health Risk Assessment Facility:[facility] Start: 06-29-2023 End: 06-29-[address] iLnda Alcantar Work Phone: [facility] Work Phone: Start: 06-29-2023 End: 06-29-[address] Linda Alcantar Work Phone: [facility] Work Phone: Start: 06-25-2023 End: 06-25-[address] Linda Alcantar Work Phone: [facility] Work Phone: Start: 04-30-2023 End: 04-30-[address] Linda Alcantar Work Phone: [facility], [place] Work Phone: Start: 04-12-[address] Linda burden Work Phone: [facility], [place] Work Phone: Start: 06-15-2022 End: 06-15-[address] Linda Alcantar Work Phone: [facility] Work Phone: Start: 06-15-2022 End: 06-15-[address] Lidna Alcantar Work Phone: [facility] Start: 06-08-2022 End: 06-08-[address] Linda Alcantar Work Phone: [facility] Start: 05-29-2022 End: 05-29-[address] Linda Alcantar Work Phone: [facility] Start: 04-06-[address] Linda burden Work Phone: [facility] Start: 02-02-2022 Registered Referred [facility] Start: 01-30-2022 End: 01-30-2022 Discharged Recurring [facility] Start: 11-21-2021 End: 12-08-2021 Discharged Recurring [facility] Start: 09-01-2021 End: 09-09-2021 Discharged Recurring [facility] Procedures Date Procedure Procedure Detail Performing Clinician Start: 06-29-2023 Screening mammography D r. Linda Malys Work Phone: Start: 04-30-2023 Radiologic examinati on of knee Dr. Linda Alcantar Work Phone: Start: 06-15-[address] Linda Alcantar Work Phone: Start: 06-08-2022 Screening mammography aDnilo Alcantar Work Phone: Start: 02-02-2022 End: 02-02-2022 Viral antigen assay Start: 11-21-2021 End: 11-21-2021 Viral antigen assay Start: 09-01-2021 SARS-CoV-2 Antigen (Rapid) Start: 07-02-2017 End: 07-02-2017 Insertion intrauterine device iud Sophia Castle MD Work Phone: Start: 07-02-2017 End: 07-02-2017 Mirena device, 52 mg Sophia grimm MD Work Phone: Plan of Treatment Date Care Activity Detail Author Start: 08-13-2017 End: 08-13-2017 Appointment Appointment [facility] Start: 05-21-2017 End: 05-21-2017 *CBC with Differential *CBC with Differential [facility] Start: 05-21-2017 End: 05-21-2017 Dehydroepiandrosterone sulfate (DHEA-S) *DHEA - DHEA-S (Dehydroepiandrostero ne Sullfate) [facility] Start: 05-21-2017 End: 05-21-2017 Glucose mass conc *Glucose, Fasting [facility] Start: 05-21-2017 End: 05-21-2017 Lipid panel [AGGREGATE] *Lipid Profile [facility] Start: 05-21-2017 End: 05-21-2017 Testosterone Free [Mass/volume] in Serum or Plasma *TESTOF Testosterone Free [facility] Start: 05-21-2017 End: 05-21-2017 Thyroid stimulating hormone (TSH) *TSH [facility] Start: 05-21-2017 End: 05-21-2017 Us pelvic nonobstetric real-time image complete US Pelvis [facility] Start: 05-21-2017 End: 05-21-2017 Us transvaginal US Transvaginal [facility] MR Lower Extremity Joint [facility] Immunizations Immunization Date Immunization Notes Care Provider Carmen [email or web address] 07-24-2024 influenza, seasonal, injectable, preservative free Dr. Linda Alcantar DO Work Phone: [facility] 06-29-2023 influenza, injectabl e, quadrivalent, preservative free Dr. Linda Alcantar Work Phone: [facility] 07-13-2022 influenza, injectabl e, quadrivalent, preservative free Dr. Linda Alcantar Work Phone: [facility] 07-20-2021 influenza, injectabl e, quadrivalent, preservative free Dr. Linda Alcantar Work Phone: [facility] 07-20-2021 influenza, seasonal, injectable [facility] Work Phone: 10-06-2020 Covid (Moderna) [facility] 09-08-2020 Covid (Moderna) [facility] 07-15-2020 influenza, injectabl e, quadrivalent, preservative free Dr. Linda Alcantar Work Phone: [facility] 07-15-2020 influenza, seasonal, injectable [facility] Work Phone: 06-25-2019 influenza, injectabl e, quadrivalent, preservative free Dr. Linda Alcantar Work Phone: [facility] 06-25-2019 influenza, seasonal, injectable [facility] Work Phone: 07-15-2018 influenza, injectabl e, quadrivalent, preservative free Dr. Linda Alcantar Work Phone: [facility] [facility] 07-15-2018 influenza, seasonal, injectable [facility] Work Phone: 07-02-2017 influenza, injectabl e, quadrivalent, preservative free Dr. Linda Alcantar Work Phone: [facility] 07-02-2017 influenza, seasonal, injectable [facility] Work Phone: 06-09-2016 influenza, injectabl e, quadrivalent, preservative free Dr. Linda Alcantar Work Phone: [facility] 06-09-2016 influenza, seasonal, injectable [facility] Work Phone: 07-26-2015 influenza, injectabl e, quadrivalent, preservative free Dr. Linda Alcantar Work Phone: [facility] 07-26-2015 influenza, seasonal, injectable [facility] Work Phone: 05-18-2014 influenza, injectabl e, quadrivalent, preservative free Dr. Linda Alcantar Work Phone: [facility] 05-18-2014 influenza, seasonal, injectable [facility] Work Phone: Payers Date Payer Category Payer Self-pay [id number] [id number] Unknown [id number] Unknown [id number] Unknown [id number] Unknown [facility] [employer] [id number] Unknown [id number] 2.16.8 [id number] Unknown [id number] 2.16.8 [id number] Unknown [id number] 2.16.8 [id number] Unknown [id number] 2.16.8 [id number] Unknown [id number] 2.16.8 [id number] Unknown [id number] 2.16.8 40.1.473301.3.579.2.462 Unknown [id number] 2.16.8 40.1.854427.3.579.2.462 Unknown [id number] 2.16.8 40.1.694686.3.579.2.462 Unknown [id number] 2.16.8 40.1.070372.3.579.2.462 Unknown [id number] 2.16.8 40.1.592992.3.579.2.462 Unknown [id number] 2.16.8 40.1.584780.3.579.2.462 Unknown [id number] 2.16.8 40.1.842695.3.579.2.462 Unknown [id number] 2.16.8 40.1.513487.3.579.2.462 Unknown [id number] 2.16.8 [id number] Unknown [id number] 2.16.8 [id number] Social History Date Type Detail Facility Start: 11-12-2017 End: 06-25-2023 Tobacco smoking status ORIS Unknown if ever smoked [facility] Start: 1980 Sex Assigned At Female [facility] Start: 01-26-2025 Tobacco smoking stat us ORIS Never smoked tobacco (finding) [facility] Evaluation note 09-29-2024 Note Date & Type Note Facility 09-29-2024 Evaluation note Diagnosis Onset Date Resolution Left knee pain acute September 292024 9:29am Osteoarthritis of left knee acute September 29 9:29am Left knee pain acute October 062024 7:56am Osteoarthritis of left knee acute October 06 7:56am Left knee pain acute October 132024 8:04am Osteoarthritis of left knee acute October 13 8:04am Left knee pain acute January 27, 2025 8:40am Osteoarthritis of left knee acute January 27, 2025 8:40am [facility] Work Phone: Clinical Note 05-29-2022 Note Date & Type Note Facility 05-29-2022 Note [facility] Work Phone: Pap Smear Specimen Adequacy May 29, 2022 1:36pm Comment . Satisfactory for evaluation. Endocervical and/or squamous metaplasticcells (endocervical component) are present. Comment on above: Satisfactory for isaac luation. Endocervical and/or squamous metaplasticcells (endocervical component) are present. Evaluation note Note Date & Type Note Facility Evaluation note No assessment information availa ble [facility] Work Phone: Evaluation note Note Date & Type Note Facility Evaluation note Diagnosis Onset Date PCOS (polycystic ovarian syndrome) acute Encounter for routine gyneco logical examination noneactive [facility] Work Phone: Evaluation note Note Date & Type Note Facility Evaluation note Diagnosis Onset Date Encounter for routine gyneco logical examination noneactive [facility] Work Phone: Reason for referral (narrative) Note Date & Type Note Facility Reason for referral (narrative) No reason for referral information available [facility] Work Phone: Family History No Family History Records Found Relationship Condition Age at Onset Recorded Date/T ahmet mother Diabetes mellitus Unknown aunt Malignant neoplasm of colon Unknown Relationship Condition Age at Onset Recorded Date/T ahmet mother Diabetes mellitus Unknown aunt Malignant neoplasm of colon Unknown father Lymphona, mantle romel l, inguinal region/lower limb Unknown Chief Complaint and Reason for Visit Chief Complaint [employer] Annual ([employer]) SCREENING LT BREAST ABN MAMM Reason for Visit PCOS (polycystic ova wagner syndrome) Encounter for routine gynecological examination Chief Complaint Annual ([employer]) SCREENING Reason for Visit Encounter for routin e gynecological examination Chief Complaint Admit Date LEFT KNEE September 29, 2024 9 :29am LEFT KNEE October 06, 2024 7 :56am LEFT KNEE October 13, 2024 8 :04am LEFT KNEE January 27, 2025 8:40a m Reason for Visit Admit Date Left knee pain September 29, 2024 9 :29am Osteoarthritis of left knee September 9:29am Left knee pain October 06, 2024 7 :56am Osteoarthritis of left knee September 7:56am Left knee pain October 13, 2024 8 :04am Osteoarthritis of left knee October 8:04am Left knee pain January 27, 2025 8:40a m Osteoarthritis of left knee January 27 8:40am Summary Purpose Advance Directives No Advanced Directives Records Found Additional Source Comments Goals (unrecognized section and content) Goals may be documented in a n alternate sectionGoals may be documented in an alternate sectionGoals may be documented in an alternate sectionGoals may be documented in an alternate sectionGoals may be documented in an alternate section Care Teams (unrecognized sec tion and content) Team Status: Active Member Role Status Dates Dr. Linda Alcantar DO Family Provider Active Dr. Linda Alcantar DO Primary Care Provider Active Team Status: Inactive Member Role Status Dates Dr. Linda Alcantar DO Primary Care Provider, Referring P rovider Active Lauren Lopez SCALER, SCALER-C Attending Provider Active Team Status: Active Member Role Status Dates Dr. Linda Alcantar DO Primary Care Provider Active Health Risk Assessment Attending Provider Active Team Status: Inactive Member Role Status Dates Dr. Linda Alcantar DO Primary Care Provide r, Attending Provider, Referring Provider Active Team Status: Inactive Member Role Status Dates Dr. Linda Alcantar DO Primary Care Provider Active Lauren Lopez SCALER, SCALER-C Attending Provider, Referring Provider Active Team Status: Active Member Role Status Dates Dr. Linda Alcantar DO Primary Care Provider Active Team Status: Inactive Member Role Status Dates Dr. Linda Alcantar DO Primary Care Provider Active Start: September 29, 2024 End: September 29, 2024 Dr. Linda Alcantar DO Referring Provider Active St art: September 29, 2024 End: September 29, 2024 Zaki Jay MD Attending Provider Active St art: September 29, 2024 End: September 29, 2024 Team Status: Inactive Member Role Status Dates Dr. Linda Alcantar DO Primary Care Provider Active Start: October 06, 2024 End: October 06, 2024 Dr. Linda Alcantar DO Referring Provider Active St art: October 06, 2024 End: October 06, 2024 Zaki Jay MD Attending Provider Active St art: October 06, 2024 End: October 06, 2024 Team Status: Inactive Member Role Status Dates Dr. Linda Alcantar DO Primary Care Provider Active Start: October 13, 2024 End: October 13, 2024 Dr. Linda Alcantar DO Referring Provider Active St art: October 13, 2024 End: October 13, 2024 Zaki Jay MD Attending Provider Active St art: October 13, 2024 End: October 13, 2024 Team Status: Inactive Member Role Status Dates Dr. Linda Alcantar DO Primary Care Provider Active Start: January 27, 2025 End: January 27, 2025 Dr. Linda Alcantar DO Referring Provider Active St art: January 27, 2025 End: January 27, 2025 Zaki Jay MD Attending Provider Active St art: January 27, 2025 End: January 27, 2025 INFORMATION SOURCE (unrecogn ized section and content) DATE CREATED AUTHOR 02/13/2025 [facility] FOR RECORDS PERTAINING TO PATIENTS WHO ARE [...] BE BASED ON THE PRIMARY CLINICAL RECORDS. [employer] provides no warranty or guarantee of the accuracy or completeness of information in this document.
--- NOTE | 2025-02-14 10:15 | MRI_ITS ---
PROCEDURE: LOWER EXT JOINT ONLY (ROUTINE) 02/14/2025 REASON FOR EXAM: PAIN, FAILED 2 INJECTIONS, ?MENISCUS TEAR TECHNIQUE: MRI of the left lower Extremity. Multiplanar and multisequence images were obtained without IV contrast administration. COMPARISON: None. FINDINGS: Mild tricompartmental changes of degenerative joint disease, more prominent in the medial tibiofemoral compartment. Associated mild degenerative reactive periarticular bone marrow edema of the medial tibiofemoral compartment. Mild suprapatellar knee joint effusion. Uncomplicated Ortiz's cyst measuring 6.2 x 3.4 cm. Uncomplicated extra-articular synovial/ganglion cyst arising from the most proximal aspect of the lateral head of the gastrocnemius muscle measuring 2.2 x 1.4 cm. Meniscal degeneration. Radial tear in the body of the medial meniscus reaching the tibial articular surface contour. Mild medial extrusion of the ruptured medial meniscus. Prepatellar/infrapatellar bursitis. Grade 2 changes of chondromalacia patella. The remaining visualized osseous elements are intact with no evidence of fracture or dislocation. The anterior and posterior cruciate ligaments are intact and demonstrate no signal abnormality. The medial and lateral collateral ligaments and ligamentous complex are intact. The patellar retinaculum and quadriceps tendon complex and the patellar tendon are intact with no evidence of signal abnormality. The osseous structures demonstrate normal marrow signal characteristics. MRI/Lower Ext Joint Only (Routine) IMPRESSION: Mild tricompartmental changes of degenerative joint disease, more prominent in the medial tibiofemoral compartment. Associated mild degenerative reactive periarticular bone marrow edema of the me dial tibiofemoral compartment. Mild suprapatellar knee joint effusion. Uncomplicated Ortiz's cyst measuring 6.2 x 3.4 cm. Uncomplicated extra-articular synovial/ganglion cyst arising from the most prox imal aspect of the lateral head of the gastrocnemius muscle measuring 2.2 x 1.4 cm. Meniscal degeneration. Radial tear in the body of the medial meniscus reaching the tibial articular johnson rface contour. Mild medial extrusion of the ruptured medial meniscus. Prepatellar/infrapatellar bursitis. Grade 2 changes of chondromalacia patella. Reading Location: [facility]
== END | disposition home or self-care (01) ==
LOC: MRI 09:21
PROVIDERS: PCP Family Medicine; Referring Provider Orthopaedic Surgery Sports Medicine; Visit Provider Orthopaedic Surgery Sports Medicine
DX: M25.562 Pain in left knee (principal)
CPT/HCPCS: 73721

== ENCOUNTER 2025-04-01 05:54 | Day surgery (SDC) | payer OTHER, SELFPAY ==
[2025-04-01] VITALS (9 sets, daily range): BP systolic 112–134; BP diastolic 80–96; PULSE 73–93; RESP 12–18; TEMP 36–37.2; O2SAT 94–100; BMI 28.8
--- OUTSIDE RECORDS SUMMARY | 2025-04-01 05:58 | XMS RPT_ITS | CCD ---
Author Organization [facility] CliniSynv Care Team Providers Care Manager Resort Name Role Phone Tin LIAO, Sophia Pham Unavailable [phone] Linda Alcantar Primary Care Provider Dr. Linda Alcantar Referring Provider John DRY BOX TENDER, DRY BOX TENDER-C Lauren Attending Provider Dr. Linda Alcantar Primary Care Provider Dr. Linda Alcantar Referring Provider John DRY BOX TENDER, UMAIR-C Lauren Attending Provider Dr. Linda Alcantar DO Primary Care Provider Dr. Linda Alcantar DO Referring Provider Zaki Jay MD Attending Provider [phone] Dr. Linda Alcantar DO Primary Care Provider Ortiz TOUSSAINT, Dr. Mckeon Referring Provider [phone] Zaki Jay MD Attending Provider Dr. Marylou Morales MD Attending Provider [phone] Dr. Marylou Morales MD Referring Provider [phone] Zaki Jay MD Referring Provider Ortiz, Linda Primary Care Unavailable Zaki Jay Attending Unavailable Zaki Jay Attending Unavailable Lcuianys, Linda Referring Unavailable Malys, Linda Primary Care Unavailable Malys, Linda Referring Unavailable Marylou Morales Attending Unavailable Malys, Linda Primary Care Unavailable Malys, Linda Referring Unavailable Kandy Bo Attending Unavailabl e Malys, Linda Primary Care Unavailable Malys, Linda Referring Unavailable Malys, Linda Primary Care Unavailable Mollison, Zaki Attending Unavailable Mollison, Zaki Attending Unavailable Malys, Linda Referring Unavailable Malys, Linda Primary Care Unavailable Malys, Linda Referring Unavailable Mollison, Zaki Attending Unavailable Malys, Linda Primary Care Unavailable Malys, Linda Referring Unavailable Mollison, Zaki Attending Unavailable Malys, Linda Primary Care Unavailable Malys, Linda Primary Care Unavailable Malys, Linda Referring Unavailable Mollison, Zaki Attending Unavailable Robotham, Marylou Attending Unavailable Malys, Linda Primary Care Unavailable Malys, Linda Referring Unavailable Cuevas PA, Sulma Referring Unavailable Cuevas PA, Sulma Consulting Unavailable Robotham, Marylou Attending Unavailable Malys, Linda Primary Care Unavailable Mollison, Zaki Attending Unavailable Mollison, Zaki Referring Unavailable Malys, Linda Primary Care Unavailable Mollison, Zaki Referring Unavailable Malys, Linda Primary Care Unavailable Mollison, Zaki Attending Unavailable Cuevas PA, Sulma Referring Unavailable Cuevas PA, Sulma Attending Unavailable Malys, Linda Primary Care Unavailable Dupont DRY BOX TENDER, Lauren Referring Unavailable Dupont DRY BOX TENDER, Lauren Attending Unavailable Malys, Linda Primary Care Unavailable John DRY BOX TENDER, Lauren Attending Unavailable Malys, Linda Primary Care Unavailable Assessment, Health Risk Referring Unavaila ble Assessment, Health Risk Attending Unavaila ble Malys, Linda Primary Care Unavailable Robotham, Marylou Referring Unavailable Robotham, Marylou Attending Unavailable Malys, Linda Primary Care Unavailable Allergies Allergy Classification Reported Allergen(s) Allergy Type Date of Onset Reaction(s) Facility (1 source) penicillin v Drug Allergy 7 [facility] (7 sources) Penicillins Allergy to substance 2 unknown [facility] (1 source) Penicillins Drug allergy (disorder) 5 [facility] Repository Medications Current Medications Medication Drug Class(es) Dates Sig (Normalized) Sig (Original) Ceramides 1,3,6-Ii (Cerave) cream (2 sources) Start: 02-18-2025 Ceramides 1,3,6-Ii (Cerave) cream Active 1 NMA TOPICAL 1 to 2 times per day as needed February 18, 2025 12:00am levonorgestrel 0.287724 mg/hr intrauterine system (10 sources) Progestin, Progestin-containi ng Intrauterine Device Start: 08-13-2017 Levonorgestrel (Mirena) 20 mcg/24 hr (5 years) intrauterine device Active 1 NMA INTRA-UTER ONCE August 13, 2017 1:00am Start: 08-13-2017 Levonorgestrel (Mirena) 20 mcg/24 hr (5 years) intrauterine device Active 1 INSERT INTRA-UTER ONCE August 13, 2017 1:00am Start: 07-02-2017 MIRENA (52 MG) 20 MCG/24HR IUD LEVONORGESTREL [id number] Sophia Castle MD Completed/Discontinued Medications Medication Drug Class(es) Dates Sig (Normalized) Sig (Original) acetaminophen 325 mg oral tablet (9 sources) Start: 10-25-2017 End: 06-25-2023 take 1 tablet by mouth once as needed Acetaminophen (Tylenol) 325 mg tablet Discontinued 325 mg PO ONCE as needed October 25, 2017 1:00am June 25, 2023 8:11am predniSONE 10 mg oral tablet (6 sources) Start: 12-28-2022 End: 07-07-2024 take 4 [...] Problem Classification Problem Date Documented Date Episodic/Chronic Joint disorders and dislocations; trauma-related (9 sources) Degenerative 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; Translations: [Derangement of unspecified medial meniscus due to old tear or injury, left knee] Onset: 02-18-2025 02-17-2025 Chronic Nonmalignant breast conditions (7 sources) Breast lump; Translations: [Unspecified lump in the left breast, unspecified quadrant] Onset: 08-13-2024 07-14-2024 Episodic Osteoarthritis (18 sources) Osteoarthritis of left knee joint; Translations: [Unilateral primary osteoarthritis, left knee] Onset: 02-18-2025 09-11-2024 Chronic Other endocrine disorders (1 source) Polycystic ovaries; Translations: [Polycystic ovarian syndrome] Onset: 05-21-2017 05-21-2017 Chronic Other endocrine disorders (9 sources) Polycystic ovary; Translations: [Polycystic ovarian syndrome] [...] 05-21-2017 05-21-2017 Chronic Other non-traumatic joint disorders (18 sources) Pain in left knee; Translations: [Left knee pain] Onset: 02-20-2025 09-11-2024 Episodic Sprains and strains (2 sources) [...] conditions (not mental disorders or infectious disease) (12 sources) Ultrasonography of breast abnormal; Translations: [Other abnormal and inconclusive findings on diagnostic imaging of breast] Onset: 07-25-2024 07-11-2024 Episodic Results Test Name Value Interpretation Reference Range Facility Surgery Visit Reporton 02-18 Surgery Visit Report [facility] [address] [place] [address] OFFICE VISIT Date of Service: 02/18/25 MR#: [id number] Acct: [id number] Name: EVENS RINCON Rep #: [id number] : 1980 Provider: Dr. Marylou johnson MD Age/Sex: 44/F Location: [facility] Status: Signed Intake Vital Signs 09/11/24 13:19 01/27/25 08:45 Height 5 ft 4 in 5 ft 4 in Intake Visit Reasons: 6 M BREAST CHECK Chief Complaint: 6 month breast check Electronic Assembly Required: No Is patient in pain?: No Allergies Penicillins Allergy (Verified 02/18/25 12:59) unknown Medications ???Medication ???Instructions ???Recorded ???Confirmed ???Type levonorgestrel (Mirena) 1 insert intrauterine ONCE 7 02/17/25 History ceramides 1,3,6-II (CeraVe topical 1 applic topical QD-BID PRN 02/0802/18/25 History cream) Have you fallen in the past year?: No PFSH Medical History Degenerative tear of left medial meniscus Osteoarthritis of left knee Left knee pain [...] safe at home: Yes HPI HPI HPI: 44-year-old female presents status post left breast biopsy x 2 to discuss follow-up ultrasound. Patient's follow-up ultrasound given a BI-RADS 2. Patient's pathology showed benign breast tissue. Patient denies any pain in her breast or changes since biopsy. Exam Const General: cooperative, healthy appearing and no acute distress HENDE Head: normal to inspection Chest Other: Breast inspection: Symmetric bilaterally Right breast: Fibroglandular tissue, no masses on exam, no nipple discharge or pain, no change in overlying skin Left breast: Fibroglandular tissue, no masses on exam, no nipple discharge or pain, no change in overlying skin???previous biopsy site well-healed difficult to find No axillary or supraclavicular adenopathy bilaterally Resp Effort Inspection: normal respiratory effort Cardio Rate: regular rate GI Inspection: non-distended Palpation: soft Skin General: no rashes or lesions noted Neuro General: patient oriented x3 Extrem General: no clubbing, cyanosis or edema Psych Affect: normal affect Assessment and Plan Assessment and Plan (1) Left breast mass: Status: Acute Comment: Pathology showed normal breast tissue follow-up ultrasound given a BI-RADS 2 Plan Patient is doing well follow-up ultrasound given a BI-RADS 2???reviewed and agree with report. Continue with screening annual mammography. Marylou Morales M.D. Pager: [phone] [facility] [address] [place] [address], [address] [place] [address] Office: [phone] Coding Level of Care Code Off vis,est,level 3 Diagnoses Left breast mass N63.20 Clinical Quality Measures Falls Risk Screening/Assistive Devices Have you fallen in the past year?: No 02/20/25 1102 Date Marylou Morales MD Cosigner Signature: Date (if applicable) CC: Dr. Linda Alcantar, DO Normal [facility] Orthopedic Visit Reporton Orthopedic Visit Report [facility] [address] [place] [address] [address] [place], [place] [address] OFFICE VISIT Date of Service: 02/17/25 MR#: [id number] Acct: [id number] Name: EVENS RINCON Rep #: [id number] : 1980 Provider: Dr. Zaki grijalva MD Age/Sex: 44/F Location: [facility] Status: Signed Intake Vital Signs 01/27/25 08:45 Height 5 ft 4 in Weight: 170 lb BMI 29.2 Intake Visit Reasons: LEFT KNEE Chief Complaint: MRI review Accompanied by: Self Allergies Penicillins Allergy (Verified 02/17/25 15:15) unknown Medications ???Medication ???Instructions ???Recorded ???Confirmed ???Type levonorgestrel (Mirena) 1 insert intrauterine ONCE 7 02/17/25 History PFS Medical History (Updated 02/17/25 @ 15:20 by Zaki Jay MD) Degenerative tear of left medial meniscus Osteoarthritis of left knee Left knee pain [...] made by me, Dr. Zaki Jay MD 02/17/25 1013. Part of today???s visit was documented by [ ], acting as scribe. EVENS RINCON is a 44 year old F here today for FU MRI L knee . Patient has tried now over 6 weeks of formal therapy as well as 2 injections with minimal relief. The patient still complains about medial sided knee pain and quite a bit of mechanical symptoms like catching and locking of the knee. Supplemental Info [facility] Imaging Services [address] [place] [address] Lower Ext Joint Only (Routine) MR#: [id number] Acct: [id number] Name: EVENS RINCON Rep #: [id number] : 1980 F 44 From: Osiris Carmichael MD PCP: Dr. Linda Alcantar, DO Status: REG CLI Study: Lower Ext Joint Only (Routine) Date of Exam: 02/14/25 Exam# [id number] Ordering Dr: Zaki Jay MD PROCEDURE: LOWER EXT JOINT ONLY (ROUTINE) 02/14/2025 REASON FOR EXAM: PAIN, FAILED 2 INJECTIONS, ?MENISCUS TEAR TECHNIQUE: MRI of the left lower Extremity. Multiplanar and multisequence images were obtained without IV contrast administration. COMPARISON: None. FINDINGS: Mild tricompartmental changes of degenerative joint disease, more prominent in the medial tibiofemoral compartment. Associated mild degenerative reactive periarticular bone marrow edema of the medial tibiofemoral compartment. Mild suprapatellar knee joint effusion. Uncomplicated Ortiz's cyst measuring 6.2 x 3.4 cm. Uncomplicated extra-articular synovial/ganglion cyst arising from the most proximal aspect of the lateral head of the gastrocnemius muscle measuring 2.2 x 1.4 cm. Meniscal degeneration. Radial tear in the body of the medial meniscus reaching the tibial articular surface contour. Mild medial extrusion of the ruptured medial meniscus. Prepatellar/infrapa tellar bursitis. Grade 2 changes of chondromalacia patella. The remaining visualized osseous elements are intact with no evidence of fracture or dislocation. The anterior and posterior cruciate ligaments are intact and demonstrate no signal abnormality. The medial and lateral collateral ligaments and ligamentous complex are intact. The patellar retinaculum and quadriceps tendon complex and the patellar tendon are intact with no evidence of signal abnormality. The osseous structures demonstrate normal marrow signal characteristics. MRI/Lower Ext Joint Only (Routine) IMPRESSION: Mild tricompartmental changes of degenerative joint disease, more prominent in the medial tibiofemoral compartment. (more content not included)... Normal [facility] Magnetic resonance imaging r eportOrdered By: Osiris Carmichael on 02-16-2025 Study report [facility] Imaging Services [address] [place] [address] Lower Ext Joint Only (Routine) MR#: [id number] Acct: [id number] Name: EVENS RINCON Rep #: [id number] : 1980 F 44 From: Amanda Carmichael MD PCP: Dr. Linda Alcantar, DO Status: REG CLI Study:Lower Ext Joint Only (Routine) Date of Exam: 02/14/25 Exam# [id number] Ordering Dr: Zaki Jay MD PROCEDURE: LOWER EXT JOINT ONLY (ROUTINE) 02/14/2025 REASON FOR EXAM: PAIN, FAILED 2 INJECTIONS, ?MENISCUS TEAR TECHNIQUE: MRI of the left lower Extremity. Multiplanar and multisequence images were obtained without IV contrast administration. COMPARISON: None. FINDINGS: Mild tricompartmental changes of degenerative joint disease, more prominent in the medial tibiofemoral compartment. Associated mild degenerative reactive periarticular bone marrow edema of the medial tibiofemoral compartment. Mild suprapatellar knee joint effusion. Uncomplicated Ortiz's cyst measuring 6.2 x 3.4 cm. Uncomplicated extra-articular synovial/ganglion cyst arising from the most proximal aspect of the lateral head of the gastrocnemius muscle measuring 2.2 x 1.4 cm. Meniscal degeneration. Radial tear in the body of the medial meniscus reaching the tibial articular surface contour. Mild medial extrusion of the ruptured medial meniscus. Prepatellar/infrapa tellar bursitis. Grade 2 changes of chondromalacia patella. The remaining visualized osseous elements are intact with no evidence of fracture or dislocation. The anterior and posterior cruciate ligaments are intact and demonstrate no signal abnormality. The medial and lateral collateral ligaments and ligamentous complex are intact. The patellar retinaculum and quadriceps tendon complex and the patellar tendon are intact with no evidence of signal abnormality. The osseous structures demonstrate normal marrow signal characteristics. MRI/Lower Ext Joint Only (Routine) IMPRESSION: Mild tricompartmental changes of degenerative joint disease, more prominent in the medial tibiofemoral compartment. Associated mild degenerative reactive periarticular bone marrow edema of the medial tibiofemoral compartment. Mild suprapatellar knee joint effusion. Uncomplicated Ortiz's cyst measuring 6.2 x 3.4 cm. Uncomplicated extra-articular synovial/ganglion cyst arising from the most proximal aspect of the lateral head of the gastrocnemius muscle measuring 2.2 x 1.4 cm. Meniscal degeneration. Radial tear in the body of the medial meniscus reaching the tibial articular surface contour. Mild medial extrusion of the ruptured medial meniscus. Prepatellar/infrapa tellar bursitis. Grade 2 changes of chondromalacia patella. Reading Location: [place] [address] CC: Dr. Linda Alcantar DO; Dr. Zaki Jay MD ~ Commissary Superintendent: Signed [facility] Lower Ext Joint Only (Routin e)on 02-14-2025 Lower Ext Joint Only (Routine) [facility] Imaging Services [address] [place] [address] Lower Ext Joint Only (Routine) MR#: [id number] Acct: [id number] Name: EVENS RINCON Rep #: [id number] : 1980 F 44 From: Osiris cuenca MD PCP: Dr. Linda Alcantar DO Status: REG CLI Study: Lower Ext Joint Only (Routine) Date of Exam: 0 02/14/25 Exam# [id number] Ordering Dr: Zaki Jay MD PROCEDURE: LOWER EXT JOINT ONLY (ROUTINE) 02/14/2025 REASON FOR EXAM: PAIN, FAILED 2 INJECTIONS, ?MENISCUS TEAR TECHNIQUE: MRI of the left lower Extremity. Multiplanar and multisequence images were obtained without IV contrast administration. COMPARISON: None. FINDINGS: Mild tricompartmental changes of degenerative joint disease, more prominent in the medial tibiofemoral compartment. Associated mild degenerative reactive periarticular bone marrow edema of the medial tibiofemoral compartment. Mild suprapatellar knee joint effusion. Uncomplicated Ortiz's cyst measuring 6.2 x 3.4 cm. Uncomplicated extra-articular synovial/ganglion cyst arising from the most proximal aspect of the lateral head of the gastrocnemius muscle measuring 2.2 x 1.4 cm. Meniscal degeneration. Radial tear in the body of the medial meniscus reaching the tibial articular surface contour. Mild medial extrusion of the ruptured medial meniscus. Prepatellar/infrapa tellar bursitis. Grade 2 changes of chondromalacia patella. The remaining visualized osseous elements are intact with no evidence of fracture or dislocation. The anterior and posterior cruciate ligaments are intact and demonstrate no signal abnormality. The medial and lateral collateral ligaments and ligamentous complex are intact. The patellar retinaculum and quadriceps tendon complex and the patellar tendon are intact with no evidence of signal abnormality. The osseous structures demonstrate normal marrow signal characteristics. MRI/Lower Ext Joint Only (Routine) IMPRESSION: Mild tricompartmental changes of degenerative joint disease, more prominent in the medial tibiofemoral compartment. Associated mild degenerative reactive periarticular bone marrow edema of the medial tibiofemoral compartment. Mild suprapatellar knee joint effusion. Uncomplicated Ortiz's cyst measuring 6.2 x 3.4 cm. Uncomplicated extra-articular synovial/ganglion cyst arising from the most proximal aspect of the lateral head of the gastrocnemius muscle measuring 2.2 x 1.4 cm. Meniscal degeneration. Radial tear in the body of the medial meniscus reaching the tibial articular surface contour. Mild medial extrusion of the ruptured medial meniscus. Prepatellar/infrapa tellar bursitis. Grade 2 changes of chondromalacia patella. Reading Location: [place] [address] CC: Dr. Linda Alcantar DO; Dr. Zaki Jay MD Commissary Superintendent: Signed Normal [facility] Breast Limited Unilateralon 02-11-2025 Breast Limited Unilateral [facility] Imaging Services [facility] [place] [address] Breast Limited Unilateral MR#: [id number] Acct: [id number] Name: EVENS RINCON Rep #: [id number] : 1980 F 44 From: Kat Aranda MD PCP: Dr. Linda Alcantar DO Status: REG CLI Study: Breast Limited Unilateral Date of Exam: Exam# [id number] Ordering Dr: Marylou Morales MD PROCEDURE: BREAST [...] BENIGN. RECOMMEND ANNUAL MAMMOGRAPHIC SCREENING. Reading Location: [id number] CC: Dr. Linda Alcantar DO; Dr. Marylou Morales MD Commissary Superintendent: Signed Normal [facility] Orthopedic Visit Reporton Orthopedic Visit Report [facility] [place] [address] OFFICE VISIT Date of Service: 01/27/25 MR#: [id number] Acct: [id number] Name: EVENS RINCON Rep #: [id number] : 1980 Provider: Dr. Zaki grijalva MD Age/Sex: 44/F Location: [facility] Status: Signed Intake Vital Signs 09/11/24 13:19 [...] by me, Dr. Zaki Jay MD 01/27/25 0863. Part of today???s visit was documented by [...] flexion and Yes Nancy's Test Supplemental Info [facility] Imaging Services [address] [place], [place] [address] Knee 4 or More Views MR#: [id number] Acct: [id number] Name: EVENS RINCON Rep #: [id number] : 1980 F 43 From: Stephan Cox MD PCP: Dr. Linda Alcantar, DO Status: REG CLI Study: Knee 4 or More Views Date of Exam: 09/09/24 Exam# [id number] Ordering Dr: Zaki Jay MD [id number] STUDY: X-RAY - LEFT KNEE REASON [...] with radiologis (more content not included)... Normal [facility] Orthopedic Visit Reporton Orthopedic Visit Report [facility] [address] [place] [address] [address] [place] [address] OFFICE VISIT Date of Service: 10/13/24 MR#: [id number] Acct: [id number] Name: EVENS RINCON Rep #: [id number] : 1980 Provider: Dr. Zaki grijalva MD Age/Sex: 43/F Location: [facility] Status: Signed Intake Vital Signs 09/11/24 13:19 [...] Provider: Zaki Jay MD Performing Location: [facility] Administered by: Zaki Jay MD on 10/13/24 08:14 Dose Route Admin Location Dispensed Lot Number Expiration Date WVC Man ufacturer 20 mg intra-articular Left Knee 2 mL [id number] 08/09/25 [address]-1 [facility] [employer] Coding Level of Care Code Attention [...] knee Ortho (more content not included)... Normal [facility] Orthopedic Visit Reporton Orthopedic Visit Report [facility] [address] [place] [address] OFFICE VISIT Date of Service: 10/06/24 MR#: [id number] Acct: [id number] Name: EVENS RINCON Rep #: [id number] : 1980 Provider: Dr. Zaki grijalva MD Age/Sex: 43/F Location: [facility] Status: Signed Intake Vital Signs 09/11/24 13:19 Height 5 ft 4 in Weight: 170 lb 2 oz BMI 29.2 Intake Visit Reasons: LEFT KNEE Chief Complaint: 2nd Euflexxa Injection Allergies Penicillins Allergy (Verified 10/06/24 08:06) unknown Medications ???Medication ???Instructions ???Recorded ???Confirmed ???Type levonorgestrel (Mirena) 1 insert intrauterine ONCE 08/13/17 10/06/24 History [facility] Medical History Osteoarthritis of left knee Left [...] Performing Provider: Zaki Jay MD Performing Location: [facility] Administered by: Zaki Jay MD on 10/06/24 08:14 Dose Route Admin Location Dispensed Lot Number Expiration Date NDC Man ufacturer 20 mg intra-articular left knee 2 mL [id number] 08/09/25 [address]-1 [facility] [employer] Coding Level of Care Code Attention Dinkey Mechanic Diagnoses Osteoarthritis of left knee M17.12 Left [...] MD Cos (more content not included)... Normal [facility] Orthopedic Visit Reporton Orthopedic Visit Report [facility] [address] [place] [address] OFFICE VISIT Date of Service: 09/29/24 MR#: [id number] Acct: [id number] Name: EVENS RINCON Rep #: [id number] : 1980 Provider: Dr. Zaki grijalva MD Age/Sex: 43/F Location: [facility] Status: Signed with Addenda ADDENDUM by Anh [...] Provider: Zaki Jay MD Performing Location: [facility] Administered by: Zaki Jay MD on 09/29/24 10:14 Dose Route Admin Location Dispensed Lot Number Expiration Date [facility] Man ufacturer 20 mg intra-articular Left Knee 2 mL [id number] 08/09/25 [address]-1 [facility] [employer] Date cc: * Signed Intake [...] osteoarthritis. Coding Level of Care Code Attention Linda [...] Neurologic: Yes (more content not included)... Normal [facility] Orthopedic Visit Reporton Orthopedic Visit Report [facility] [address] [place] [address] OFFICE VISIT Date of Service: 09/11/24 MR#: [id number] Acct: [id number] Name: EVENS RINCON Rep #: [id number] : 1980 Provider: Dr. Zaki grijalva MD Age/Sex: 43/F Location: [facility] Status: Signed Intake Vital Signs 07/11/24 13:23 [...] 1 insert intrauterine ONCE 08/13/17 09/11/24 History [facility] Medical History (Updated 09/11/24 @ 13:39 by [...] by me, Dr. Zaki Jay MD 09/11/24 1903. Part of today???s visit was documented by [...] coming from the patellofemoral joint Supplemental Info [facility] Imaging Services [address] [place], [place] [id number] Knee 4 or More Views MR#: [id number] Acct: [id number] Name: EVENS RINCON Rep #: [id number] : 1980 F 43 From: Stephan Cox MD PCP: Dr. Linda Alcantar, DO Status: REG CLI Study: Knee 4 or More Views Date of Exam: 09/09/24 Exam# [id number] Ordering Dr: Zkai Jay MD -[id number] STUDY: X-RAY - LEFT KNEE REASON FOR EXAM: Female, 43 years old. pain TECHNIQUE: 4 view(s) of the knee. COMPARISON: 04/30/2023 FINDINGS: Normal visualized (more content not included)... Normal [facility] Knee 4 or More Viewson 09-09 Knee 4 or More Views [facility] Imaging Services [address] [place] [address] [id number] Knee 4 or More Views MR#: [id number] Acct: [id number] Name: EVENS RINCON Rep #: [id number] : 1980 F 43 From: Stephan Cox MD PCP: Dr. Linda Alcantar, Status: REG CLI Study: Knee 4 or More Views Date of Exam: 09/09/24 Exam# [id number] Ordering Dr: Zaki Jay MD -[id number] STUDY: X-RAY - LEFT KNEE REASON [...] Linda Alcantar DO; Dr. 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 Linda Alcantar DO; Dr. Marylou Morales MD Signed Normal [facility] Surgery Specimen Level Zach 07-28-2024 Surgery Specimen Level IV Patient Age/Sex Location Account Attending Physician EVENS RINCON 43/F OPUS [id number] Sulma Cuevas PA-C Specimen: [id number] Received: 07/28/24 Status: ANDREA Bermudez Num: [id number] Spec Type: BREAST BX Subm Dr: Sulma [...] Negative for atypia or malignancy. See comment. 07/30/2024 COMMENT A B. Correlation with clinical, [...] specimen is totally submitted in one cassette. . 07/29/2024 TC:5 CPT:83699z7 Patient Age/Sex Location Account Attending Physician EVENS RINCON 43/F OPUS [id number] Sulma Cuevas PA-C Signed (signatur e on file) Dr. Tad Smith MD 07/30/24 1201 Normal [facility] Comment on above: Performed By: #### P SUIV #### [facility] Laboratory [facility] [place], [address] US Breast Biopsy 1st Lesiono n 07-28-2024 US Breast Biopsy 1st Lesion [facility] Imaging Services [address] [place] [address] US Breast Biopsy 1st Lesion MR#: [id number] Acct: [id number] Name: EVENS RINCON Rep #: [id number] : 1980 F 43 From: Kumar de la rosa MD PCP: Dr. Linda Alcantar, Status: [facility] Study: US Breast Biopsy 1st Lesion Date of Exam: 07/11 05/03 Exam# [id number] Ordering Dr: Sulma Cuevas A-C -[id number] MAMMOGRAPHY - UNILATERAL DIAGNOSTIC: LEFT BREAST [...] Kumar Washington MD at 8:49 EST , [id number] INDICATION: left breast masses EXAMINATION: Ultrasound [...] Signed: Kumar Washington MD at 9:00 EST , CC: JENNIFER Cuevas; Dr. Linda Alcantar, Commissary Superintendent: Signed Normal [facility] Surgery Visit Reporton 07-11 Surgery Visit Report [facility] [address] [place] [address] OFFICE VISIT Date of Service: 07/11/24 MR#: [id number] Acct: [id number] Name: EVENS RINCON Rep #: [id number] : 1980 Provider: Dr. Marylou johnson MD Age/Sex: 43/F Location: [facility] Status: Signed Intake Vital Signs 07/07/24 11:44 [...] 8 years) 52 mg intrauterine device (Mirena) [facility] Medical History (Updated 07/11/24 @ 13:23 by [...] cooperative, healthy appearing and no acute distress HENMT Head: normal to inspection Chest Other: Breast [...] General: trudi (more content not included)... Normal [facility] Heat Treater Helper Office Visit Reporton 07-07-2024 Heat Treater Helper Office Visit Report [facility] [address], [address] [place] [address] OFFICE VISIT Date of Service: 07/07/24 MR#: [id number] Acct: [id number] Name: EVENS RINCON Rep #: [id number] : 1980 Provider: Dr. 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 Normal [facility] Breast Limited Unilateralon 07-03-2024 Breast Limited Unilateral [facility] Imaging Services [address] [place] [address] Breast Limited Unilateral MR#: [id number] Acct: [id number] Name: EVENS RINCON Rep #: [id number] : 1980 F 43 From: Kumar de la rosa MD PCP: Dr. Linda Alcantar, Status: [facility] Study: Breast Limited Unilateral Date of Exam: Exam# [id number] Ordering Dr: Lauren Lopez DRY BOX TENDER DRY BOX TENDER -C -[id number] STUDY: ULTRASOUND BREAST - LEFT REASON [...] Signed: Kumar Washington MD at 12:25 EDT Reading Location ID and State: [facility] / [place] , Service support , CC: SERENA Lopez; Dr. Linda Alcantar DO Commissary Superintendent: Signed Normal [facility] SCRN MAMM (CAD)W/ELISEO BILATo n 06-30-2024 SCRN MAMM (CAD)W/ELISEO BILAT [facility] Imaging Services [address] [place] [address] [phone] SCRN MAMM (CAD)W/ELISEO BILAT MR#: [id number] Acct: [id number] Name: EVENS RINCON Rep #: [id number] : 1980 F 43 From: Kumar de la rosa MD PCP: Dr. Linda Alcantar DO Status: REG CLI Study: SCRN MAMM (CAD)W/ELISEO BILAT Date of Exam: 06/11 10/03 Exam# [id number] Ordering Dr: Lauren Lopez NP DRY BOX TENDER -C -[id number] MAMMOGRAPHY - BILATERAL SCREENING REASON FOR [...] delay biopsy of a clinically suspicious abnormality. [id number] Electronically Signed: Kumar Washington MD at 11:08 EDT , CC: SERENA Lopez; Dr. Linda Alcantar DO Commissary Superintendent: Signed Normal [facility] Basic Metabolic Profile (BMP )on 04-23-2024 BUN/CRE 17.7 RATIO Normal 10-20 [facility] Comment on above: Order Comment: 1 Performed By: #### L 501.1400, L504.2610, L100.0100, L500.2500, L400.2010 #### [facility] Laboratory [address] [place], [address] CA,Total 9.0 mg/dL Normal 8.5-10.1 [facility] Comment on above: Order Comment: 1 Performed By: #### L 501.1400, L504.2610, L100.0100, L500.2500, L400.2010 #### [facility] Laboratory [address] [place], [address] Chloride [Moles/Vol] 104 mmol/L Normal 98-107 [facility] Comment on above: Order Comment: 1 Performed By: #### L 501.1400, L504.2610, L100.0100, L500.2500, L400.2010 #### [facility] [address] [place], [address] CO2 [Moles/Vol] 30.0 mmol/L Normal 21.0-32.0 [facility] Comment on above: Order Comment: 1 Performed By: #### L 501.1400, L504.2610, L100.0100, L500.2500, L400 #### [facility] [address] [place], [address] Creatinine [Mass/Vol] 0.79 mg/dL Normal 0.55-1.[address] [facility] Comment on above: Order Comment: 1 Result Comment: The validity of the calculated GFR GFRAA in patients over 70 years has not been determined. Clinical correlation is essential. Performed By: #### L 501.1400, L504.2610, L100.0100, L500.2500, L400.2010 #### [facility] [address] [place], [address] EST GFR - AA 103 mL/min Normal >60 [facility] Comment on above: Order Comment: 1 Result Comment: Afri can Angolan GFR Calc Performed By: #### L 501.1400, L504.2610, L100.0100, L500.2500, L400.2010 #### [facility] [address] [place], [address] GAP 4 Low 5-15 [facility] Comment on above: Order Comment: 1 Performed By: #### L 501.1400, L504.2610, L100.0100, L500.2500, L400.2010 #### [facility] [address] [place], [address] GFR/1.73 sq M.predicted among non-blacks MDRD (S/P/Bld) [Vol rate/Area] 85 mL/min/{1.73_m2} Normal >60 [facility] Comment on above: Order Comment: 1 Result Comment: Non- GFR Calc Performed By: #### L 501.1400, L504.2610, L100.0100, L500.2500, L400.2010 #### [facility] [address] [place], [address] Glucose [Mass/Vol] 105 mg/dL Normal 74-106 [facility] Comment on above: Order Comment: 1 Result Comment: Fast ing Glucose result from 100 to 125 mg/dL suggests IMPAIRED HOMEOSTASIS per A.D.A. criteria. Performed By: #### L 501.1400, L504.2610, L100.0100, L500.2500, L400.2010 #### [facility] [address] [place], [address] Potassium [Moles/Vol] 4.1 mmol/L Normal 3.5-5.[address] [facility] Comment on above: Order Comment: 1 Performed By: #### L 501.1400, L504.2610, L100.0100, L500.2500, L400.2010 #### [facility] [address] [place], [address] Sodium [Moles/Vol] 138 mmol/L Normal 136-145 [facility] Comment on above: Order Comment: 1 Performed By: #### L 501.1400, L504.2610, L100.0100, L500.2500, L400.2010 #### [facility] [address] [place], [address] Urea nitrogen [Mass/Vol] 14 mg/dL Normal 7-18 [facility] Comment on above: Order Comment: 1 Performed By: #### L 501.1400, L504.2610, L100.0100, L500.2500, L400.2010 #### [facility] [address] [place], [address] CBC W/Diff, Automatedon 04-10 Absolute Lymph 1.16 X10 3/uL Normal 0.83-4.51 [facility] Comment on above: Performed By: #### L 501.1400, L504.2610, L100.0100, L500.2500, L400.2010 #### [facility] [address] [place], [address] Absolute Neut 3.3 X10 3/uL Normal 2.0-7.7 [facility] Comment on above: Performed By: #### L 501.1400, L504.2610, L100.0100, L500.2500, L400.2010 #### [facility] [address] [place], [address] Basophils/100 WBC (Bld) 0.6 % Normal 0-1 [facility] Comment on above: Performed By: #### L 501.1400, L504.2610, L100.0100, L500.2500, L400.2010 #### [facility] [address] [place], [address] Eosinophils/100 WBC (Bld) 0.4 % Normal 0-5 [facility] Comment on above: Performed By: #### L 501.1400, L504.2610, L100.0100, L500.2500, L400.2010 #### [facility] [address] [place], [address] Erythrocyte distribution width (RBC) [Ratio] 12.2 % Normal 11.6-14.6 [facility] Comment on above: Performed By: #### L 501.1400, L504.2610, L100.0100, L500.2500, L400.2010 #### [facility] [address] [place], [address] Hematocrit (Bld) [Volume fraction] 43.2 % Normal 37-47 [facility] Comment on above: Performed By: #### L 501.1400, L504.2610, L100.0100, L500.2500, L400.2010 #### [facility] [address] [place], [address] Hemoglobin (Bld) [Mass/Vol] 14.9 g/dL Normal 12.0-15.0 [facility] Comment on above: Performed By: #### L 501.1400, L504.2610, L100.0100, L500.2500, L400.2010 #### [facility] [address] [place], [address] IG% 0.400 Normal 0.0-0.9 [facility] Comment on above: Result Comment: IG% - Immature Granulocytes (promyelocytes, myelocytes and metamyelocytes) > 1% indicates that a LEFT SHIFT is Present. Performed By: #### L 501.1400, L504.2610, L100.0100, L500.2500, L400.2010 #### [facility] [address] [place], [address] Lymphocytes/100 WBC (Bld) 23.9 % Normal 19-41 [facility] Comment on above: Performed By: #### L 501.1400, L504.2610, L100.0100, L500.2500, L400.2010 #### [facility] [address] [place], [address] MCH (RBC) [Entitic mass] 28.5 pg Normal 27.0-32.0 [facility] Comment on above: Performed By: #### L 501.1400, L504.2610, L100.0100, L500.2500, L400.2010 #### [facility] [address] [place], [address] MCHC (RBC) [Mass/Vol] 34.5 g/dL Normal 32-[address] [facility] Comment on above: Performed By: #### L 501.1400, L504.2610, L100.0100, L500.2500, L400.2010 #### [facility] [address] [place], [address] MCV (RBC) [Entitic vol] 82.8 fL Normal 81-99 [facility] Comment on above: Performed By: #### L 501.1400, L504.2610, L100.0100, L500.2500, L400.2010 #### [facility] [address] [place], [address] Monocytes/100 WBC (Bld) 7.6 % Normal 0-10 [facility] Comment on above: Performed By: #### L 501.1400, L504.2610, L100.0100, L500.2500, L400.2010 #### [facility] [address] [place], [address] Neutrophils/100 WBC (Bld) 67.1 % Normal 47-70 [facility] Comment on above: Performed By: #### L 501.1400, L504.2610, L100.0100, L500.2500, L400.2010 #### [facility] [address] [place], [address] Nucleated RBC (Bld) [#/Vol] 0 10*3/uL Normal 0-5 [facility] Comment on above: Performed By: #### L 501.1400, L504.2610, L100.0100, L500.2500, L400.2010 #### [facility] [address] [place], [address] Platelet mean volume (Bld) [Entitic vol] 9.2 fL Normal 6.2-12.0 [facility] Comment on above: Performed By: #### L 501.1400, L504.2610, L100.0100, L500.2500, L400.2010 #### [facility] [address] [place], [address] Platelets (Bld) [#/Vol] 276 10*3/uL Normal 150-450 [facility] Comment on above: Performed By: #### L 501.1400, L504.2610, L100.0100, L500.2500, L400.2010 #### [facility] [address] [place], [address] RBC (Bld) [#/Vol] 5.22 10*6/uL Normal 4.2-5.4 [facility] Comment on above: Performed By: #### L 501.1400, L504.2610, L100.0100, L500.2500, L400.2010 #### [facility] [address] [place], [address] RDW SD 36.6 fl Normal 35.1-43.9 [facility] Comment on above: Performed By: #### L 501.1400, L504.2610, L100.0100, L500.2500, L400.2010 #### [facility] [address] [place], [address] WBC (Bld) [#/Vol] 4.9 10*3/uL Normal 4.4-11.0 [facility] Comment on above: Performed By: #### L 501.1400, L504.2610, L100.0100, L500.2500, L400.2010 #### [facility] [address] [place], [address] LDHon 04-23-2024 LDH 177 U/L Normal 84-246 [facility] Comment on above: Order Comment: 1 Performed By: #### L 501.1400, L504.2610, L100.0100, L500.2500, L400.2010 #### [facility] [address] [place], [address] Uric Acidon 04-23-2024 URIC 5.3 mg/dL Normal 2.6-6.0 [facility] Comment on above: Order Comment: 1 Result Comment: The drugs N-Acetylcysteine and Metamizole may falsely depress this assay. Performed By: #### L 501.1400, L504.2610, L100.0100, L500.2500, L400.2010 #### [facility] [address] [place], [address] Urinalysis, Routine (Dipstic k)on 04-23-2024 BILIRUBIN URINE Negative Normal Negative [facility] Comment on above: Order Comment: Urine , Random Performed By: #### L 501.1400, L504.2610, L100.0100, L500.2500, L400.2010 #### [facility] [address] [place], [address] Clarity (U) Clear Normal Clear [facility] Comment on above: Order Comment: Urine , Random Performed By: #### L 501.1400, L504.2610, L100.0100, L500.2500, L400.2010 #### [facility] [address] [place], [address] Color (U) Yellow Normal Yellow [facility] Comment on above: Order Comment: Urine , Random Performed By: #### L 501.1400, L504.2610, L100.0100, L500.2500, L400.2010 #### [facility] [address] [place], [address] GLUCOSE, UR Normal Normal Normal [facility] Comment on above: Order Comment: Urine , Random Performed By: #### L 501.1400, L504.2610, L100.0100, L500.2500, L400.2010 #### [facility] [address] [place], [address] KETONE UR Negative Normal Negative [facility] Comment on above: Order Comment: Urine , Random Performed By: #### L 501.1400, L504.2610, L100.0100, L500.2500, L400.2010 #### [facility] [address] [place], [address] LEUK ESTERASE Negative Normal Negative [facility] Comment on above: Order Comment: Urine , Random Performed By: #### L 501.1400, L504.2610, L100.0100, L500.2500, L400.2010 #### [facility] [address] [place], [address] Nitrite Ql (U) Negative Normal Negative [facility] Comment on above: Order Comment: Urine , Random Performed By: #### L 501.1400, L504.2610, L100.0100, L500.2500, L400.2010 #### [facility] [address] [place], [address] OCCULT BLOOD-UR Negative Normal Negative [facility] Comment on above: Order Comment: Urine , Random Performed By: #### L 501.1400, L504.2610, L100.0100, L500.2500, L400.2010 #### [facility] [address] [place], [address] pH UR 6.5 Normal 5.0 - 8.0 [facility] Comment on above: Order Comment: Urine , Random Performed By: #### L 501.1400, L504.2610, L100.0100, L500.2500, L400.2010 #### [facility] [address] [place], [address] PROT DIPSTX Negative Normal Negative [facility] Comment on above: Order Comment: Urine , Random Performed By: #### L 501.1400, L504.2610, L100.0100, L500.2500, L400.2010 #### [facility] [address] [place], [address] SP.GR. DIPSTX 1.010 Normal 1.002-1.030 [facility] Comment on above: Order Comment: Urine , Random Performed By: #### L 501.1400, L504.2610, L100.0100, L500.2500, L400.2010 #### [facility] [address] [place], [address] UROBILI Normal Normal Normal [facility] Comment on above: Order Comment: Urine , Random Performed By: #### L 501.1400, L504.2610, L100.0100, L500.2500, L400.2010 #### [facility] [address] [place], [address] Absolute lymphocyte countOrd ered By: HEALTH ASSESSMENT on 04-12-2023 Lymphocytes Auto (Unsp spec) [#/Vol] 1.31 10*3/uL 0.83-4.51 [facility] Absolute reticulocyte countO rdered By: HEALTH ASSESSMENT on 04-12-2023 Reticulocytes (Bld) [#/Vol] 0.00 10*3/uL 0-5 [facility] Basophil percentageOrdered B y: HEALTH ASSESSMENT on 04-12-2023 Basophil percentage 2.5 mg/dL 2.5-4.9 [facility] Bilirubin [Mass/Vol] 0.70 mg/dL 0.20-1.00 [facility] Comment on above: For patients on eltr ombopag therapy, use of Dimension [place] TBIL is not recommended. Chloride [Moles/Vol] 104 mmol/L 98-107 [facility] Cholesterol [Mass/Vol] 170 mg/dL <200 [facility] Comment on above: <200 mg/dL Desirable 200-240 mg/dL Borderline >240 mg/dL High Risk Glucose [Mass/Vol] 91 mg/dL 74-106 [facility] LDH [Catalytic activity/Vol] 168 U/L 84-246 [facility] Neutrophils (Bld) [#/Vol] 2.4 10*3/uL 2.0-7.7 [facility] Potassium [Moles/Vol] 4.3 mmol/L 3.5-5.[address] [facility] Protein [Mass/Vol] 6.8 g/dL 6.4-8.2 [facility] Sodium [Moles/Vol] 138 mmol/L 136-145 [facility] Triglyceride [Mass/Vol] 42 mg/dL <199 [facility] Comment on above: The drugs N-Acetylcy steine and Metamizole may falsely depress this assay.Serum Triglycerides Reference Interval Normal <150 mg/dL Borderline high 150 - 199 mg/dL High 200 - 499 mg/dL Very High > or = 500 mg/dL WBC (Bld) [#/Vol] 4.2 10*3/uL 4.4-11.0 [facility] Bilirubin Test strip Ql (U)O rdered By: HEALTH ASSESSMENT on 04-12-2023 Bilirubin Ql (U) Negative Negative [facility] Blood erythrocytes count (nu mber/volume)Ordered By: HEALTH ASSESSMENT on 04-12-2023 RBC (Bld) [#/Vol] 5.14 10*6/uL 4.2-5.4 [facility] Blood hemoglobin measurement (mass/volume)Ordered By: HEALTH ASSESSMENT on 04-12-2023 Hemoglobin (Bld) [Mass/Vol] 15.1 g/dL 12.0-15.0 [facility] Blood platelet mean volumeOr dered By: HEALTH ASSESSMENT on 04-12-2023 Platelet mean volume (Bld) [Entitic vol] 9.4 fL 6.2-12.0 [facility] Determination of erythrocyte mean corpuscular volume (MCV)Ordered By: HEALTH ASSESSMENT on 04-12-2023 MCV (RBC) [Entitic vol] 83.9 fL 81-99 [facility] Direct bilirubinOrdered By: HEALTH ASSESSMENT on 04-12-2023 Bilirubin.direct [Mass/Vol] 0.16 mg/dL 0.00-0.30 [facility] Hematocrit Auto (Bld) [Volum e fraction]Ordered By: HEALTH ASSESSMENT on 04-12-2023 Hematocrit (Bld) [Volume fraction] 43.1 % 37-47 [facility] Ketones Test strip Ql (U)Ord ered By: HEALTH ASSESSMENT on 04-12-2023 Ketones Ql (U) Negative Negative [facility] Laboratory - Chemistry and C hemistry - challengeOrdered By: HEALTH ASSESSMENT on 04-12-2023 ALP [Catalytic activity/Vol] 46 U/L 45-117 [facility] ALT [Catalytic activity/Vol] 17 U/L 13-56 [facility] Cholesterol.total/Lenora sterol in HDL [Mass ratio] 2.50 {ratio} [facility] CO2 [Moles/Vol] 27.0 mmol/L 21.0-32.0 [facility] Globulin (S) [Mass/Vol] 3.1 g/dL 2.2-4.2 [facility] Urea nitrogen/Creatinine [Mass ratio] 15.4 mg/mg 10-20 [facility] Laboratory - Hematology and Cell countsOrdered By: HEALTH ASSESSMENT on 04-12-2023 Erythrocyte distribution width (RBC) [Entitic vol] 38.4 fL 35.1-43.9 [facility] Erythrocyte distribution width (RBC) [Ratio] 12.5 % 11.6-14.6 [facility] MCH (RBC) [Entitic mass] 29.4 pg 27.0-32.0 [facility] Nucleated RBC/100 WBC (Bld) [Ratio] 0 % 0-5 [facility] MCHC Auto (RBC) [Mass/Vol]Or dered By: HEALTH ASSESSMENT on 04-12-2023 MCHC (RBC) [Mass/Vol] 35.0 g/dL 32-[address] [facility] Nitrite Test strip Ql (U)Ord ered By: HEALTH ASSESSMENT on 04-12-2023 Nitrite Ql (U) Negative Negative [facility] No Panel InformationOrdered By: HEALTH ASSESSMENT on 04-12-2023 Estimated GFR (MDRD) Amer 87 mL/min >60 [facility] Comment on above: GFR Calc Estimated GFR (MDRD) Non-Af Amer 72 mL/min >60 [facility] Comment on above: Non- GFR Calc Platelets bldOrdered By: NIKITA [place] ASSESSMENT on 04-12-2023 Platelets (Bld) [#/Vol] 332 10*3/uL 150-450 [facility] Protein Test strip Ql (U)Ord ered By: HEALTH ASSESSMENT on 04-12-2023 Protein Ql (U) Negative Negative [facility] Segmented neutrophils/100 WB C Auto (Bld)Ordered By: HEALTH ASSESSMENT on 04-12-2023 Segmented neutrophils/100 WBC (Bld) 57.0 % 47-70 [facility] Serum or plasma albumin pat urement (mass/volume)Ordered By: HEALTH ASSESSMENT on 04-12-2023 Albumin [Mass/Vol] 3.7 g/dL 3.2-5.0 [facility] Serum or plasma albumin/glob ulin mass ratioOrdered By: HEALTH ASSESSMENT on 04-12-2023 Albumin/Globulin [Mass ratio] 1.2 {ratio} 0.9-2.4 [facility] Serum or plasma calcium pat urement (mass/volume)Ordered By: HEALTH ASSESSMENT on 04-12-2023 Calcium [Mass/Vol] 8.5 mg/dL 8.5-10.1 [facility] Serum or plasma cholesterol in HDL measurement (mass/volume)Ordered By: HEALTH ASSESSMENT on 04-12-2023 Cholesterol in HDL [Mass/Vol] 67 mg/dL >40 [facility] Comment on above: The drugs N-Acetylcy steine and Metamizole may falsely depress this assay. Reference Range HDL <40 mg/dL Low HDL Cholesterol HDL >or= 60 mg/dL High HDL Cholesterol Serum or plasma cholesterol in VLDL measurement (mass/volume)Ordered By: HEALTH ASSESSMENT on 04-12-2023 Cholesterol in VLDL [Mass/Vol] 8 mg/dL 5-40 [facility] Serum or plasma creatinine m easurement (mass/volume)Ordered By: HEALTH ASSESSMENT on 04-12-2023 Creatinine [Mass/Vol] 0.91 mg/dL 0.55-1.[address] [facility] Comment on above: The validity of the calculated GFR & GFRAA in patients over 70 years has not been determined. Clinical correlation is essential. Serum or plasma low density lipoprotein (LDL) cholesterol measurement (mass/volume)Ordered By: HEALTH ASSESSMENT on 04-12-2023 Cholesterol in LDL [Mass/Vol] 95 mg/dL 0-130 [facility] Serum or plasma urea nitroge n measurement (mass/volume)Ordered By: HEALTH ASSESSMENT on 04-12-2023 Urea nitrogen [Mass/Vol] 14 mg/dL 7-18 [facility] Serum or plasma uric acid me asurement (mass/volume)Ordered By: HEALTH ASSESSMENT on 04-12-2023 Urate [Mass/Vol] 6.7 mg/dL 2.6-6.0 [facility] Comment on above: The drugs N-Acetylcy steine and Metamizole may falsely depress this assay. Thin prep Papanicolaou smear with manual screeningOrdered By: HEALTH ASSESSMENT on 04-12-2023 Thin prep Papanicolaou smear with manual screening 15 U/L 15-37 [facility] Thin prep Papanicolaou smear with manual screening 7 5-15 [facility] Urine blood detectionOrdered By: HEALTH ASSESSMENT on 04-12-2023 RBC Ql (U) 25 /ul Negative [facility] Urine clarityOrdered By: [facility] ASSESSMENT on 04-12-2023 Clarity (U) Sl. Cloudy Clear [facility] Urine color determinationOrd ered By: HEALTH ASSESSMENT on 04-12-2023 Color (U) Yellow Yellow [facility] Urine glucose detectionOrder ed By: HEALTH ASSESSMENT on 04-12-2023 Glucose Ql (U) Normal mg/dl Normal [facility] Urine leukocyte esterase det ection by dipstickOrdered By: HEALTH ASSESSMENT on 04-12-2023 Leukocyte esterase Test strip Ql (U) Negative Negative [facility] Urine pHOrdered By: HEALTH A SSESSMENT on 04-12-2023 pH (U) 6.5 [pH] 5.0 - 8.0 [facility] Urine specific gravity measu rementOrdered By: HEALTH ASSESSMENT on 04-12-2023 Specific gravity (U) [Rel density] 1.010 1.002-1.030 [facility] Urobilinogen Auto test strip Ql (U)Ordered By: HEALTH ASSESSMENT on 04-12-2023 Urobilinogen Ql (U) Normal mg/dl Normal [facility] Cervical or vagninal specime n microscopic examination by cytology stain (reported ason 05-29-2022 Cytology report Cyto stain Doc (Cvx/Vag) Comment . [facility] Work Phone: Comment on above: The Pap [...] DNA Probe+sig amp Ql (Cvx) Negative Negative [facility] Work Phone: Comment on above: This nucleic acid am plification test detects fourteen high-risk HPV types (16,18,31,33,35,39,45,51,52,56,58,59,66,68)without differentiation.Performed at: - [facility] [id number] Director: Virgie Maria MD, Phone: [phone] at: = - [facility] [address] [id number] Director: Virgie Maria MD, Phone: [phone] Laboratory - Cytologyon 05-11 Practice Clinician Cyto stain Nom (Cvx/Vag) [ID] Comment . [facility] Work Phone: Comment on above: Ivy Gonzalez, Cyto technologist (ASCP) Laboratory - Miscellaneous t estson 05-29-2022 Service comment (Unsp spec) [Interp] Comment . [facility] Work Phone: Comment on above: This liquid based Th inPrep(R) pap test was screened withthe use of an image guided system. Service comment (Unsp spec) [Interp] . . [facility] Work Phone: No Panel Informationon 05-29 Pathology report final diagnosis Narrative Comment . [facility] Work Phone: Comment on above: NEGATIVE FOR INTRAEP ITHELIAL LESION OR MALIGNANCY. Absolute lymphocyte counton 04-06-2022 Lymphocytes Auto (Unsp spec) [#/Vol] 1.29 10*3/uL 0.83-4.51 [facility] Work Phone: Absolute reticulocyte counto n 04-06-2022 Reticulocytes (Bld) [#/Vol] 0.00 10*3/uL 0-5 [facility] Work Phone: Basophil percentageon 2021 Basophil percentage 3.0 mg/dL 2.5-4.9 [facility] Work Phone: Bilirubin [Mass/Vol] 0.70 mg/dL 0.20-1.00 [facility] Work Phone: Comment on above: For patients on eltr ombopag therapy, use of Dimension [place] TBIL is not recommended. Chloride [Moles/Vol] 105 mmol/L 98-107 [facility] Work Phone: Cholesterol [Mass/Vol] 163 mg/dL <200 [facility] Work Phone: Comment on above: <200 mg/dL Desirable 200-240 mg/dL Borderline >240 mg/dL High Risk Glucose [Mass/Vol] 96 mg/dL 74-106 [facility] Work Phone: Neutrophils (Bld) [#/Vol] 2.6 10*3/uL 2.0-7.7 [facility] Work Phone: Potassium [Moles/Vol] 4.1 mmol/L 3.5-5.[address] [facility] Work Phone: Protein [Mass/Vol] 6.4 g/dL 6.4-8.2 [facility] Work Phone: Sodium [Moles/Vol] 139 mmol/L 136-145 [facility] Work Phone: Triglyceride [Mass/Vol] 45 mg/dL <199 [facility] Work Phone: Comment on above: The drugs N-Acetylcy steine and Metamizole may falsely depress this assay.Serum Triglycerides Reference Interval Normal <150 mg/dL Borderline high 150 - 199 mg/dL High 200 - 499 mg/dL Very High > or = 500 mg/dL WBC (Bld) [#/Vol] 4.3 10*3/uL 4.4-11.0 [facility] Work Phone: Bilirubin Test strip Ql (U)o n 04-06-2022 Bilirubin Ql (U) Negative Negative [facility] Work Phone: Blood erythrocytes count (nu mber/volume)on 04-06-2022 RBC (Bld) [#/Vol] 5.19 10*6/uL 4.2-5.4 [facility] Work Phone: Blood hemoglobin measurement (mass/volume)on 04-06-2022 Hemoglobin (Bld) [Mass/Vol] 14.8 g/dL 12.0-15.0 [facility] Work Phone: Blood platelet mean volumeon 04-06-2022 Platelet mean volume (Bld) [Entitic vol] 9.4 fL 6.2-12.0 [facility] Work Phone: Determination of erythrocyte mean corpuscular volume (MCV)on 04-06-2022 MCV (RBC) [Entitic vol] 82.7 fL 81-99 [facility] Work Phone: Direct bilirubinon Bilirubin.direct [Mass/Vol] 0.13 mg/dL 0.00-0.30 [facility] Work Phone: Hematocrit Auto (Bld) [Volum e fraction]on 04-06-2022 Hematocrit (Bld) [Volume fraction] 42.9 % 37-47 [facility] Work Phone: Ketones Test strip Ql (U)on 04-06-2022 Ketones Ql (U) Negative Negative [facility] Work Phone: Laboratory - Chemistry and C hemistry - challengeon 04-06-2022 ALP [Catalytic activity/Vol] 38 U/L 45-117 [facility] Work Phone: ALT [Catalytic activity/Vol] 15 U/L 13-56 [facility] Work Phone: Cholesterol.total/Lenora sterol in HDL [Mass ratio] 2.70 {ratio} [facility] Work Phone: CO2 [Moles/Vol] 29.0 mmol/L 21.0-32.0 [facility] Work Phone: Globulin (S) [Mass/Vol] 2.8 g/dL 2.2-4.2 [facility] Work Phone: Urea nitrogen/Creatinine [Mass ratio] 16.0 mg/mg 10-20 [facility] Work Phone: Laboratory - Hematology and Cell countson 04-06-2022 Erythrocyte distribution width (RBC) [Entitic vol] 37.9 fL 35.1-43.9 [facility] Work Phone: Erythrocyte distribution width (RBC) [Ratio] 12.7 % 11.6-14.6 [facility] Work Phone: MCH (RBC) [Entitic mass] 28.5 pg 27.0-32.0 [facility] Work Phone: Nucleated RBC/100 WBC (Bld) [Ratio] 0 % 0-5 [facility] Work Phone: MCHC Auto (RBC) [Mass/Vol]on 04-06-2022 MCHC (RBC) [Mass/Vol] 34.5 g/dL 32-36 [facility] Work Phone: Nitrite Test strip Ql (U)on 04-06-2022 Nitrite Ql (U) Negative Negative [facility] Work Phone: No Panel Informationon 04-06 Estimated GFR (MDRD) Amer 92 mL/min >60 [facility] Work Phone: Comment on above: GFR Calc Estimated GFR (MDRD) Non-Af Amer 76 mL/min >60 [facility] Work Phone: Comment on above: Non- GFR Calc Platelets bldon 04-06-2022 Platelets (Bld) [#/Vol] 312 10*3/uL 150-450 [facility] Work Phone: Protein Test strip Ql (U)on 04-06-2022 Protein Ql (U) Negative Negative [facility] Work Phone: Segmented neutrophils/100 WB C Auto (Bld)on 04-06-2022 Segmented neutrophils/100 WBC (Bld) 59.4 % 47-70 [facility] Work Phone: Serum or plasma albumin pat urement (mass/volume)on 04-06-2022 Albumin [Mass/Vol] 3.6 g/dL 3.2-5.0 [facility] Work Phone: Serum or plasma albumin/glob ulin mass ratioon 04-06-2022 Albumin/Globulin [Mass ratio] 1.3 {ratio} 0.9-2.4 [facility] Work Phone: Serum or plasma calcium pat urement (mass/volume)on 04-06-2022 Calcium [Mass/Vol] 8.2 mg/dL 8.5-10.1 [facility] Work Phone: Serum or plasma cholesterol in HDL measurement (mass/volume)on 04-06-2022 Cholesterol in HDL [Mass/Vol] 61 mg/dL >40 [facility] Work Phone: Comment on above: The drugs N-Acetylcy steine and Metamizole may falsely depress this assay. Reference Range HDL <40 mg/dL Low HDL Cholesterol HDL >or= 60 mg/dL High HDL Cholesterol Serum or plasma cholesterol in VLDL measurement (mass/volume)on 04-06-2022 Cholesterol in VLDL [Mass/Vol] 9 mg/dL 5-40 [facility] Work Phone: Serum or plasma creatinine m easurement (mass/volume)on 04-06-2022 Creatinine [Mass/Vol] 0.88 mg/dL 0.55-1.[address] [facility] Work Phone: Comment on above: The validity of the calculated GFR & GFRAA in patients over 70 years has not been determined. Clinical correlation is essential. Serum or plasma low density lipoprotein (LDL) cholesterol measurement (mass/volume)on 04-06-2022 Cholesterol in LDL [Mass/Vol] 93 mg/dL 0-130 [facility] Work Phone: Serum or plasma urea nitroge n measurement (mass/volume)on 04-06-2022 Urea nitrogen [Mass/Vol] 14 mg/dL 7-18 [facility] Work Phone: Serum or plasma uric acid me asurement (mass/volume)on 04-06-2022 Urate [Mass/Vol] 5.5 mg/dL 2.6-6.0 [facility] Work Phone: Comment on above: The drugs N-Acetylcy steine and Metamizole may falsely depress this assay. Thin prep Papanicolaou smear with manual screeningon 04-06-2022 Thin prep Papanicolaou smear with manual screening 9 U/L 15-37 [facility] Work Phone: Thin prep Papanicolaou smear with manual screening 5 5-15 [facility] Work Phone: Thin prep Papanicolaou smear with manual screening 160 U/L 84-246 [facility] Work Phone: Urine blood detectionon 03-11 RBC Ql (U) 25 /ul Negative [facility] Work Phone: Urine clarityon 04-06-2022 Clarity (U) Clear Clear [facility] Work Phone: Urine color determinationon 04-06-2022 Color (U) Yellow Yellow [facility] Work Phone: Urine glucose detectionon Glucose Ql (U) Normal mg/dl Normal [facility] Work Phone: Urine leukocyte esterase det ection by dipstickon 04-06-2022 Leukocyte esterase Test strip Ql (U) Negative Negative [facility] Work Phone: Urine pHon 04-06-2022 pH (U) 7.0 [pH] 5.0 - 8.0 [facility] Work Phone: Urine specific gravity measu rementon 04-06-2022 Specific gravity (U) [Rel density] 1.010 1.002-1.030 [facility] Work Phone: Urobilinogen Auto test strip Ql (U)on 04-06-2022 Urobilinogen Ql (U) Normal mg/dl Normal [facility] Work Phone: No Panel Informationon 09-01 SARS-CoV-2 Antigen (Rapid) [facility] Work Phone: Office Visit: IUD Insertiono n 07-02-2017 Documentation of current medications (procedure) Done Invalid Interpretation Code [facility] Fall risk assessment No Invalid Interpretation Code [facility] Tobacco smoking status NHIS Never Invalid Interpretation Code [facility] Tobacco use CPHS Never smoker Invalid Interpretation Code [facility] Lab Report: PAP I-G HPV Hi R iskon 05-25-2017 HPV HC,HGH RISK Negative Invalid Interpretation Code Negative [facility] Lab Report: CBC, Employeeon 05-23-2017 Absolute Neut 2.0 X10 3/UL Invalid Interpretation Code 2.0-7.7 [facility] Basophils/100 WBC Auto (Bld) 0.3 % Invalid Interpretation Code 0-1 [facility] Eosinophils/100 leukocytes 1.3 % Invalid Interpretation Code 0-5 [facility] Erythrocyte distribution width Auto Ratio (RBC) 13.2 % Invalid Interpretation Code 11.6-14.6 [facility] Erythrocytes (RBC) 4.73 10*6/uL Invalid Interpretation Code 4.2-5.4 [facility] Hematocrit (HCT) 38.5 % Invalid Interpretation Code 37-47 [facility] Hemoglobin mass conc (Bld) 13.7 g/dL Invalid Interpretation Code 12.0-15.0 [facility] Lymphocytes 1.21 X10 3/UL Invalid Interpretation Code 0.83-4.51 [facility] Lymphocytes/100 leukocytes 32.4 % Invalid Interpretation Code 19-41 [facility] MCH 29.0 pg Invalid Interpretation Code 27.0-32.0 [facility] MCHC mass conc (RBC) 35.6 G/GL Invalid Interpretation Code 32-36 [facility] MCV 81.4 fL Invalid Interpretation Code 81-99 [facility] Monocytes/100 leukocytes 11.5 % High 0-10 [facility] Neutrophils/100 WBC Auto (Bld) 54.5 % Invalid Interpretation Code 47-70 [facility] Platelets 238 10*3/mm3 Invalid Interpretation Code 150-450 [facility] PMV by Vito 10.0 fL Invalid Interpretation Code 6.2-12.0 [facility] RDW SD 38.0 fL Invalid Interpretation Code 35.1-43.9 [facility] WBC (Leukocytes) 3.7 10*3/uL Low 4.4-11.0 [facility] Lab Report: Employee Profile on 05-23-2017 Alanine aminotransferase (ALT) 19 U/L Invalid Interpretation Code 12-78 [facility] Albumin 3.6 g/dL Invalid Interpretation Code 3.4-5.0 [facility] Albumin/Globulin Ratio 1.2 {ratio} Invalid Interpretation Code 0.9-2.4 [facility] Alkaline phosphatase (ALP) 44 U/L Low 45-117 [facility] Anion gap 9 mmol/L Invalid Interpretation Code 5-15 [facility] Aspartate aminotransferase (AST) 12 U/L Low 15-37 [facility] Bilirubin (direct) 0.17 mg/dL Invalid Interpretation Code 0.00-0.30 [facility] Bilirubin (total) 0.70 mg/dL Invalid Interpretation Code 0.20-1.00 [facility] BUN/Creatinine Ratio 17.2 RATIO Invalid Interpretation Code 10-20 [facility] Calcium 8.1 mg/dL Low 8.5-10.1 [facility] Chloride 106 mmol/L Invalid Interpretation Code 98-107 [facility] Cholesterol 147 mg/dL Invalid Interpretation Code 200 [facility] CO2 28.0 mmol/L Invalid Interpretation Code 21.0-32.0 [facility] Creatinine 0.76 mg/dL Invalid Interpretation Code 0.55-1.02 [facility] eGFR (non-black) 112 mL/min/{1.73_m2} Invalid Interpretation Code >60 [facility] eGFR (non-black) 92 mL/min/{1.73_m2} Invalid Interpretation Code >60 [facility] Globulin 2.9 g/dL Invalid Interpretation Code 2.3-3.5 [facility] Glucose mass conc 88 mg/dL Invalid Interpretation Code 70-110 [facility] HDL Cholesterol 64 mg/dL Invalid Interpretation Code [facility] LDH 175 U/L Invalid Interpretation Code 84-246 [facility] LDL Cholesterol 71 mg/dL Invalid Interpretation Code 0-130 [facility] PHOS 2.8 mg/dL Invalid Interpretation Code 2.5-4.9 [facility] Potassium molar conc 3.9 mmol/L Invalid Interpretation Code 3.5-5.1 [facility] Protein 6.5 g/dL Invalid Interpretation Code 6.4-8.2 [facility] Sodium 143 mmol/L Invalid Interpretation Code 136-145 [facility] Triglyceride 59 mg/dL Invalid Interpretation Code [facility] Urate 5.5 mg/dL Invalid Interpretation Code 2.6-6.0 [facility] Urea nitrogen 13 mg/dL Invalid Interpretation Code 7-18 [facility] very low density lipoproteins 12 mg/dL Invalid Interpretation Code 5-40 [facility] Lab Report: Urinalysis, Jerson shabazz 05-23-2017 Bilirubin Ql (U) Negative Invalid Interpretation Code Negative [facility] NITRITE UR Negative Invalid Interpretation Code Negative [facility] OCCULT BLOOD-UR 10 High Negative [facility] specific gravity, urine 1.015 Invalid Interpretation Code 1.002-1.030 [facility] Urine, clarity Sl. Cloudy Invalid Interpretation Code Clear [facility] Urine, color Yellow Invalid Interpretation Code Yellow [facility] Urine, glucose presence Normal mg/dl Invalid Interpretation Code Normal [facility] Urine, ketones presence Negative Invalid Interpretation Code Negative [facility] Urine, leukocyte esterase presence Negative Invalid Interpretation Code Negative [facility] Urine, pH 6.0 [pH] Invalid Interpretation Code 5.0 - 8.0 [facility] Urine, protein 15 mg/dL High Negative [facility] UROBILI Normal mg/dl Invalid Interpretation Code Normal [facility] Office Visit: new annualon 0 05-21-2017 Hemoglobin presence in stool not done Invalid Interpretation Code [facility] Office Visit: IUD Insertiono n 06-10-2016 General categories [Interpretation] of Cervical or vaginal smear or scraping by Cyto stain Normal Invalid Interpretation Code [facility] Vital Signs Date Time Vital Sign Value Performing Clinician Robyn barnes 01-27-2025 08:45-0400 Body height 162.[address] Linda Alcantar DO Work Phone: [facility] 01-27-2025 08:45-0400 Body mass index (BMI) [Ratio] 29.2 kg/m2 Dr. Linda Alcantar DO Work Phone: [facility] 01-27-2025 08:45-0400 Body weight 77.[address] Linda Alcantar DO Work Phone: [facility] 06-25-2023 08:12-0400 Body height 162.[address] Linda Alcantar Work Phone: [facility] 06-25-2023 08:04-0400 Body mass index (BMI) [Ratio] 29.2 kg/m2 Dr. Linda Alcantar Work Phone: [facility] 06-25-2023 08:04-0400 Body weight 77.[address] Linda Alcantar Work Phone: [facility] 06-25-2023 08:04-0400 Diastolic blood pressure 84 mm[Hg] Dr. Linda Alcantar Work Phone: [facility] 06-25-2023 08:04-0400 Systolic blood pressure 120 mm[Hg] Dr. Linda Alcantar Work Phone: [facility] 05-29-2022 10:09-0400 Body height 162.[address] Linda Alcantar Work Phone: [facility] Work Phone: 05-29-2022 10:09-0400 Body mass index (BMI) [Ratio] 27.3 kg/m2 Dr. Linda Alcantar Work Phone: [facility] Work Phone: 05-29-2022 10:09-0400 Body weight 72.[address] Linda Alcantar Work Phone: [facility] Work Phone: 05-29-2022 10:09-0400 Diastolic blood pressure 78 mm[Hg] Dr. Linda Alcantar Work Phone: [facility] Work Phone: 05-29-2022 10:09-0400 Systolic blood pressure 120 mm[Hg] Dr. Linda Alcantar Work Phone: [facility] Work Phone: 07-02-2017 09:09-0400 BMI (Body Mass Index) 27.77 kg/m2 Sophia Castle MD [facility] 07-02-2017 09:09-0400 Body Temperature 98.2 [degF] Sophia Castle MD [facility] 07-02-2017 09:09-0400 BP Diastolic 68 mm[Hg] Sophia Castle MD [facility] 07-02-2017 09:09-0400 BP Systolic 106 mm[Hg] Sophia Castle MD [facility] 07-02-2017 09:09-0400 Height 162.56 cm Sophia Castle MD [facility] 07-02-2017 09:09-0400 Pulse (Heart Rate) 70 /min Sophia Castle MD [facility] 07-02-2017 09:040 Respiratory Rate 16 /min Sophia Castle MD [facility] 07-02-2017 09:040 Weight 73.39 kg [address]ia Castle MD [facility] Encounters Encounter Date Encounter Type Care Provider Facility Start: 04-01-2025 ambulatory Linda Alcantar Facility:[facility] Start: 02-18-2025 End: 02-18-[address] Marylou Morales MD -[facility] Work Phone: Start: 02-18-2025 End: 02-18-[address] Linda Alcantar DO Work Phone: [facility] Work Phone: Start: 02-17-2025 End: 02-17-[address] Zaki Jay MD -[facility] Work Phone: Start: 02-17-2025 End: 02-17-[address] Linda Alcantar DO Work Phone: [facility] Work Phone: Start: 02-14-2025 End: 02-14-[address] Linda Alcantar DO Work Phone: [facility] Work Phone: Start: 02-14-2025 End: 02-14-[address] Zaki Jay MD -[facility] Work Phone: Start: 02-14-2025 End: 02-14-2025 ambulatory Zaki Jay Facility:[facility] Start: 02-11-2025 End: 02-11-[address] Linda Alcantar DO Work Phone: [facility] Work Phone: Start: 02-11-2025 End: 02-11-[address] Marylou Morales MD -[facility] Work Phone: Start: 02-11-2025 End: 02-11-2025 ambulatory Marylou [facility] Facility:[facility] Start: 01-27-2025 End: 01-27-[address] Zaki Jay MD -[facility] Work Phone: Start: 01-27-2025 End: 01-27-[address] Linda Alcantar DO Work Phone: [facility] Work Phone: Start: 10-13-2024 End: 10-13-[address] Zaki Jay MD -[facility] Work Phone: Start: 10-13-2024 End: 10-13-2024 ambulatory Linda Malys Facility:[facility] Start: 10-06-2024 End: 10-06-[address] Zaki Jay MD -[facility] Work Phone: Start: 10-06-2024 End: 10-06-2024 ambulatory Linda Malys Facility:[facility] Start: 09-29-2024 End: 09-29-[address] Zaki Jay MD -[facility] Work Phone: Start: 09-29-2024 End: 09-29-2024 ambulatory Zaki Jay Facility:[facility] Start: 09-11-2024 End: 09-11-2024 ambulatory Linda Maldagmar Facility:[facility] Start: 09-09-2024 End: 09-09-2024 ambulatory Zaki Jay Facility:[facility] Start: 07-28-2024 ambulatory Sulma PRATT Faci lity:[facility] Start: 07-28-2024 End: 07-28-2024 ambulatory Sulma PRATT Facility:[facility] Start: 07-11-2024 End: 07-11-2024 ambulatory Linda Malys Facility:[facility] Start: 07-07-2024 End: 07-07-2024 ambulatory Linda Malys Facility:[facility] Start: 07-03-2024 End: 07-03-2024 ambulatory Lauren Lopez NP Facility:[facility] Start: 06-30-2024 End: 06-30-2024 ambulatory Lauren Lopez UMAIR Facility:[facility] Start: 04-23-2024 ambulatory Health Risk Assessment Facility:[facility] Start: 06-29-2023 End: 06-29-[address] Linda Alcantar Work Phone: [facility] Work Phone: Start: 06-29-2023 End: 06-29-[address] Linda Alcantar Work Phone: [facility] Work Phone: Start: 06-25-2023 End: 06-25-[address] Linda Alcantar Work Phone: [facility] Work Phone: Start: 04-30-2023 End: 04-30-[address] Linda Alcantar Work Phone: [facility] Work Phone: Start: 04-12-[address] Linda burden Work Phone: [facility] Work Phone: Start: 06-15-2022 End: 06-15-[address] Linda Alcantar Work Phone: [facility] Work Phone: Start: 06-15-2022 End: 06-15-[address] Linda Alcantar Work Phone: [facility] Start: 06-08-2022 End: 06-08-[address] Linda Alcantar Work Phone: [facility] Start: 05-29-2022 End: 05-29-[address] Linda Alcantar Work Phone: [facility] Start: 04-06-[address] [facility] Start: 02-02-2022 Registered Referred [facility] Start: 01-30-2022 End: 01-30-2022 Discharged Recurring [facility] Start: 11-21-2021 End: 12-08-2021 [facility] Start: 09-01-2021 End: 09-09-2021 [facility] Procedures Date Procedure Procedure Detail Performing Clinician Start: 02-14-2025 MRI of joint of lowe r extremity Dr. Linda Alcantar DO Work Phone: Start: 02-11-[address] Linda Alcantar DO Work Phone: Start: 06-29-2023 Screening mammography Danilo Alcantar Work Phone: Start: 04-30-2023 Radiologic examinati on of knee Dr. iLnda Alcantar Work Phone: Start: 06-15-[address] Linda Alcantar Work Phone: Start: 06-08-2022 Screening mammography Danilo Alcantar Work Phone: Start: 02-02-2022 End: 02-02-2022 Viral antigen assay Start: 11-21-2021 End: 11-21-2021 Viral antigen assay Start: 09-01-2021 SARS-CoV-2 Antigen (Rapid) Start: 07-02-2017 End: 07-02-2017 Insertion intrauterine device iud Sophia Castle MD Work Phone: Start: 07-02-2017 End: 07-02-2017 Mirena device, 52 mg Sophia grimm MD Work Phone: Plan of Treatment Date Care Activity Detail Author Start: 08-13-2017 End: 08-13-2017 Appointment Appointment [facility] Start: 05-21-2017 End: 05-21-2017 *CBC with Differential *CBC with Differential [facility] Start: 05-21-2017 End: 05-21-2017 Dehydroepiandrosterone sulfate (DHEA-S) *DHEA - DHEA-S (Dehydroepiandrostero ne Sullfate) [facility] Start: 05-21-2017 End: 05-21-2017 Glucose mass conc *Glucose, Fasting [facility] Start: 05-21-2017 End: 05-21-2017 Lipid panel [AGGREGATE] *Lipid Profile [facility] Start: 05-21-2017 End: 05-21-2017 Testosterone Free [Mass/volume] in Serum or Plasma *TESTOF Testosterone Free [facility] Start: 05-21-2017 End: 05-21-2017 Thyroid stimulating hormone (TSH) *TSH [facility] Start: 05-21-2017 End: 05-21-2017 Us pelvic nonobstetric real-time image complete US Pelvis [facility] Start: 05-21-2017 End: 05-21-2017 Us transvaginal US Transvaginal [facility] MR Lower Extremity Joint [facility] Patient referral [facility] Work Phone: [facility] Immunizations Immunization Date Immunization Notes Care Provider Carmen foss 07-24-2024 influenza, seasonal, injectable, preservative free Dr. Linda Alcantar DO Work Phone: [facility] 06-29-2023 influenza, injectabl e, quadrivalent, preservative free Dr. Linda Alcantar Work Phone: [facility] 07-13-2022 influenza, injectabl e, quadrivalent, preservative free Dr. Linda Alcantar Work Phone: [facility] 07-20-2021 influenza, injectabl e, quadrivalent, preservative free Dr. Linda Alcantar Work Phone: [facility] 07-20-2021 influenza, seasonal, injectable [facility] Work Phone: 10-06-2020 Covid (Moderna) [facility] 09-08-2020 Covid (Moderna) [facility] 07-15-2020 influenza, injectabl e, quadrivalent, preservative free Dr. Linda Alcantar Work Phone: [facility] 07-15-2020 influenza, seasonal, injectable [facility] Work Phone: 06-25-2019 influenza, injectabl e, quadrivalent, preservative free Dr. Linda Alcantar Work Phone: [facility] 06-25-2019 influenza, seasonal, injectable [facility] Work Phone: 07-15-2018 influenza, injectabl e, quadrivalent, preservative free Dr. Linda Alcantar Work Phone: [facility] 07-15-2018 influenza, seasonal, injectable [facility] Work Phone: 07-02-2017 influenza, injectabl e, quadrivalent, preservative free Dr. Linda Alcantar Work Phone: [facility] 07-02-2017 influenza, seasonal, injectable [facility] Work Phone: 06-09-2016 influenza, injectabl e, quadrivalent, preservative free Dr. Linda Alcantar Work Phone: [facility] 06-09-2016 influenza, seasonal, injectable [facility] Work Phone: 07-26-2015 influenza, injectabl e, quadrivalent, preservative free Dr. Linda Alcantar Work Phone: [facility] 07-26-2015 influenza, seasonal, injectable [facility] Work Phone: 05-18-2014 influenza, injectabl e, quadrivalent, preservative free Dr. Linda Alcantar Work Phone: [facility] 05-18-2014 influenza, seasonal, injectable [facility] Work Phone: Payers Date Payer Category Payer Self-pay [id number] 2023 Unknown [id number] Unknown [id number] Unknown [id number] Unknown [facility] [id number] Unknown [id number] 2.16.8 [id number] Unknown [id number] 2.16.8 [id number] Unknown [id number] 2.16.8 [id number] Unknown [id number] 2.16.8 [id number] Unknown [id number] 2.16.8 [id number] Unknown [id number] 2.16.8 [id number] Unknown [id number] 2.16.8 [id number] Unknown [id number] 2.16.8 [id number] Unknown [id number] 2.16.8 [id number] Unknown [id number] 2.16.8 [id number] Unknown [id number] 2.16.8 [id number] Unknown [id number] 2.16.8 [id number] Unknown [id number] 2.16.8 [id number] Unknown [id number] 2.16.8 [id number] Unknown [id number] 2.16.8 [id number] Unknown [id number] 2.16.8 [id number] Unknown [id number] 2.16.8 [id number] Unknown [id number] 2.16.8 [id number] Social History Date Type Detail Facility Start: 11-12-2017 End: 06-25-2023 Tobacco smoking status CTIS Unknown if ever smoked [facility] Start: 1980 Sex Assigned At Female [facility] Start: 01-26-2025 Tobacco smoking stat us CTIS Never smoked tobacco (finding) [facility] Radiology Diagnostic study note 02-11-2025 Note Date & Type Note Facility 02-11-2025 Radiology Diagnostic study note [facility] Imaging Services [address], [place] [address] Breast Limited Unilateral MR#: [id number] Acct: [id number] Name: EVENS RINCON Rep #: [id number] : 1980 F 44 From: Vee Aranda MD PCP: Dr. Linda Aclantar DO Status: [facility] CLI Study:Breast Limited Unilateral Date of Exam: 02/11/25 Exam# [id number] Ordering Dr: Marylou Morales MD PROCEDURE: BREAST [...] BENIGN. RECOMMEND ANNUAL MAMMOGRAPHIC SCREENING. Reading Location: [id number] CC: Dr. Linda Alcantar DO; Dr. 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 [facility] Evaluation note 01-27-2025 Note Date & Type Note Facility 01-27-2025 Evaluation note Diagnosis Onset Date Resolution Left knee pain acute January 27, 2025 8:40am Osteoarthritis of left knee acute January 27, 2025 8:40am Degenerative tear of left medial meniscus acute February 17, 2025 3:12pm Left knee pain acute February 17, 2025 3:12pm Osteoarthritis of left knee acute February 17, 2025 3:12pm [facility] Work Phone: Evaluation note 09-29-2024 Note Date & Type [...] left knee acute January 27, 2025 8:40am [facility] Work Phone: Clinical Note 05-29-2022 Note Date & Type Note Facility 05-29-2022 Note [facility] Work Phone: Pap Smear Specimen Adequacy May 29, 2022 1:36pm Comment . Satisfactory for evaluation. Endocervical and/or squamous metaplasticcells (endocervical component) are present. Comment on above: Satisfactory for isaac luation. Endocervical and/or squamous metaplasticcells (endocervical component) are present. Evaluation note Note Date & Type Note Facility Evaluation note No assessment information availa ble [facility] Work Phone: Evaluation note Note Date & Type Note Facility Evaluation note Diagnosis Onset Date PCOS (polycystic ovarian syndrome) acute Encounter for routine gyneco logical examination noneactive [facility] Work Phone: Evaluation note Note Date & Type Note Facility Evaluation note Diagnosis Onset Date Encounter for routine gyneco logical examination noneactive [facility] Work Phone: Reason for referral (narrative) Note Date & Type Note Facility Reason for referral (narrative) No reason for referral information available [facility] Work Phone: Family History No Family History [...] for Visit Chief Complaint [employer] Annual ([employer]) SCREENING LT BREAST ABN MAMM Reason for Visit PCOS (polycystic ova wagner syndrome) Encounter for routine gynecological examination Chief Complaint Annual ([employer] RET[employer]) SCREENING Reason for Visit Encounter for routin [...] Osteoarthritis of left knee January 27 8:40am Chief Complaint Admit Date LEFT KNEE January 27, 2025 8:40a m LEFT BREAST LUMP F/U February 11, 2025 7:34 am PAIN, FAILED 2 INJECTIONS, POSS MENISCUS TEAR February 14, 2025 9:21am LEFT KNEE February 17, 2025 3:12 pm Reason for Visit Admit Date Left knee pain January 27, 2025 8:40a m Osteoarthritis of left knee January 27 8:40am Degenerative tear of left medial meniscu s February 17, 2025 3:12pm Left knee pain February 17, 2025 3:12 pm Osteoarthritis of left knee February 17 3:12pm Chief Complaint Admit Date LEFT KNEE January 27, 2025 8:40a m LEFT BREAST LUMP F/U February 11, 2025 7:34 am PAIN, FAILED 2 INJECTIONS, POSS MENISCUS TEAR February 14, 2025 9:21am LEFT KNEE February 17, 2025 3:12 pm 6 M BREAST CHECK February 18, 2025 12:5 3pm Summary Purpose Advance Directives No Advanced Directives [...] Alcantar DO Primary Care Provider, Referring P enrique Active Lauren Lopez DRY BOX TENDER, DRY BOX TENDER-C Attending Provider Active Team Status: Active Member Role Status Dates Dr. Linda Alcantar DO Primary Care Provider Active Health Risk Assessment Attending Provider Active Team Status: Inactive Member Role Status Dates Dr. Linda Alcantar DO Primary Care Provide r, Attending Provider, Referring Provider Active Team Status: Inactive Member Role Status Dates Dr. Linda Alcantar DO Primary Care Provider Active Lauren Lopez DRY BOX TENDER, DRY BOX TENDER-C Attending Provider, Referring Provider Active Team Status: [...] January 27, 2025 End: January 27, 2025 Team Status: Active Member Role Status Dates Dr. Linda Alcantar DO Primary Care Provider Active Start: February 11, 2025 Dr. Marylou Morales MD Attending Provider Active Start: February 11, 2025 Dr. Marylou Morales MD Referring Provider Active Start: February 11, 2025 Team Status: Active Member Role Status Dates Dr. Linda Alcantar DO Primary Care Provider Active Start: February 14, 2025 Zaki Jay MD Attending Provider Active St art: February 14, 2025 Zaki Jay MD Referring Provider Active St art: February 14, 2025 Team Status: Inactive Member Role Status Dates Dr. Linda Alcantar DO Primary Care Provider Active Start: February 17, 2025 End: February 17, 2025 Dr. Linda Alcantar DO Referring Provider Active St art: February 17, 2025 End: February 17, 2025 Zaki Jay MD Attending Provider Active St art: February 17, 2025 End: February 17, 2025 Team Status: Inactive Member Role Status Dates Dr. Linda Alcantar DO Primary Care Provider Active Start: February 11, 2025 End: February 11, 2025 Dr. Marylou Morales MD Attending Provider Active Start: February 11, 2025 End: February 11, 2025 Dr. Marylou Morales MD Referring Provider Active Start: February 11, 2025 End: February 11, 2025 Team Status: Inactive Member Role Status Dates Dr. Linda Alcantar DO Primary Care Provider Active Start: February 18, 2025 End: February 18, 2025 Dr. Linda Alcantar DO Referring Provider Active St art: February 18, 2025 End: February 18, 2025 Dr. Marylou Morales MD Attending Provider Active Start: February 18, 2025 End: February 18, 2025 Team Status: Inactive Member Role Status Dates Dr. Linda Alcantar DO Primary Care Provider Active Start: February 14, 2025 End: February 14, 2025 Zaki Jay MD Attending Provider Active St art: February 14, 2025 End: February 14, 2025 Zaki Jay MD Referring Provider Active St art: February 14, 2025 End: February 14, 2025 INFORMATION SOURCE (unrecogn ized section and content) DATE CREATED AUTHOR 03/22/2025 [facility] FOR RECORDS PERTAINING TO PATIENTS WHO ARE [...] BE BASED ON THE PRIMARY CLINICAL RECORDS. [facility] [employer] [facility]. provides no warranty or guarantee of the accuracy or completeness of information in this document.
[2025-04-01] MEDS: Lactated Ringers 1,000 ML 30 ML IV (06:36)
--- NOTE | 2025-04-01 06:58 | PCM.PRE.AN2 ---
ASA Classification* ASA Classification ASA Classification: 1 Assessment & Plan Anesthesia* Anesthesia Assessment Anesthesia Assessment: Discussed sedation and/or anesthesia options, risks, benefits, and alternatives with patient/parents/legal guardian/POA. Questions invited. The patient/parents/legal guardian/POA seems to understand and agrees to proceed with anesthesia plan. Reviewed the physical assessment, medical history, allergy history and patient home medications list prior to surgery/procedure/anesthetic and documented any changes. Performed airway and anesthesia risk assessments. Anesthesia Type Anesthesia Type: General History Source History Obtained from:: Patient and Chart Anesthesia Focused Assessment* Temperature: 99.0 F Pulse Rate: 73 Blood Pressure: 112/96 Respiratory Rate: 14 Pulse Ox: 100 Oxygen Delivery Method: Room Air Airway Assessment Mouth opens: >3 cm Mallampati Score: II Teeth Condition: Intact Neck Range of motion (ROM): Full ROM Labs Anesthesia Preop lab: CBC WBC 4.9 K/mm3 (4.4-11.0) 04/23/24 10:51 04/23/24 RBC 5.22 M/mm3 (4.2-5.4) 04/23/24 10:51 04/23/24 Hgb 14.9 g/dL (12.0-15.0) 04/23/24 10:51 04/23/24 Hct 43.2 % (37-47) 04/23/24 10:51 04/23/24 Plt Count 276 K/mm3 (150-450) 04/23/24 10:51 04/23/24 CHEMISTRY Potassium 4.1 mmol/L (3.5-5.1) 04/23/24 10:51 04/23/24 Sodium 138 mmol/L (136-145) 04/23/24 10:51 04/23/24 Phosphorus 2.5 mg/dL (2.5-4.9) 04/12/23 09:26 04/12/23 BUN 14 mg/dL (7-18) 04/23/24 10:51 04/23/24 Creatinine 0.79 mg/dL (0.55-1.02) 04/23/24 10:51 04/23/24 Glucose 105 mg/dL (74-106) 04/23/24 10:51 04/23/24 COAG Pre-Assessment Diagnosis/Proposed Procedure Planned Operative Procedure(s): LEFT KNEE ARTHROSCOPY PARTIAL MEDIAL MENISECTOMY Anesthesia History Anesthesia History - beaming inspector: Anesthesia History - beaming inspector Hx Hospitalization No 03/18/25 08:23 Any Problems With Anesthesia No 03/18/25 08:23 Cholinesterase deficiency No 03/18/25 08:23 You/Your Family Experience No 03/18/25 08:23 fever (hyperthermia) with Relationship Recent Exposure to Contagious No 04/01/25 06:25 Disease Does patient have nerve No 03/18/25 08:23 stimulator Patient instructed to have device shut off --Does patient have Pacemaker No 04/01/25 06:25 or ICD? When Was Last Pacemaker Check QUESTION #4 FULL TEXT: You/Your Family Experience fever (hyperthermia) with Anesthesia Any additional information?: No Last Oral Intake Last Oral intake: Last Oral Intake NPO since 18:00 04/01/25 06:25 Meds taken in AM with sips of No 04/01/25 06:25 water? Meds patient instructed to take am of surgery Any additional information?: No PONV PONV - beaming inspector: PONV - beaming inspector Female Yes 03/18/25 08:23 HX of Motion Sickness Yes 03/18/25 08:23 HX of N/V After Surgery No 03/18/25 08:23 Non-Smoker Yes 03/18/25 08:23 Duration of Surgery greater Yes 03/18/25 08:23 than 60 minutes Number of Risk Factors 4 03/18/25 08:23 PONV Score Severe Risk 03/18/25 08:23 Any additional information?: No Height & Weight Height & Weight: Anesthesia: Height & Weight Height 5 ft 4 in 04/01/25 06:25 Weight: 76 kg 04/01/25 06:25 Body Mass Index (BMI) 28.8 04/01/25 06:25 Respiratory Assessment Respiratory Assessment - beaming inspector: Respiratory Tract Infection Hx - beaming inspector Hx Respiratory Tract Infection No 03/18/25 08:23 Any additional information?: No STOP Sleep Apnea STOP Sleep Apnea - beaming inspector: STOP Sleep Apnea - beaming inspector Hx Hypertension No 03/18/25 08:23 Hx Sleep Apnea No 03/18/25 08:23 CPAP BIPAP Do you snore loudly (louder No 03/18/25 08:23 than talking or can be heard Do you often feel tired/ No 03/18/25 08:23 fatigued/ sleepy during daytime? Has anyone observed you stop No 03/18/25 08:23 breathing during sleep? STOP Results Negative 03/18/25 08:23 QUESTION #5 FULL TEXT : Do you snore loudly (louder than talking or can be heard through closed doors)? 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 Specify any problems Hx of Preganancy in last 3 No 03/18/25 08:23 Months Nurse Filling Out Transfusion DSCHRIBER 03/18/25 08:23 & Questions: Date: 03/18/25 03/18/25 08:23 Time: 08:24 03/18/25 08:23 Patient unable to answer at this time (ie. confused, unrespo Any additional information?: No /Reproduction History /Reproductive History - beaming inspector: /Reproductive Hx- beaming inspector Hx Now No 03/18/25 08:23 Gestational Age (in weeks): EDC: Hx Hx Para Hx Section SAB No 03/18/25 08:23 Any additional information?: No Active Medications Active Medications: Current Medications Generic Name Dose Route Start Last Admin Trade Name Freq PRN Reason Stop Dose Admin Cefazolin Sodium 2 gm/ Sodium 110 mls @ 200 mls/hr 04/01/25 07:30 Chloride IV 04/01/25 08:02 INTRAOP ONE Lactated Ringer's 1,000 mls @ 30 mls/hr 04/01/25 06:30 04/01/25 06:36 IV 30 mls/hr .[id number] JENNIFER Administration [facility] Medical History Wears contact lenses Alcohol use Arthritis Non-smoker History of pain when walking Degenerative tear of left medial meniscus Osteoarthritis of left knee Left knee pain Abnormal mammogram Abnormal ultrasound of breast PCOS (polycystic ovarian syndrome) Gestational diabetes Home Medications ?Medication ?Instructions ?Recorded ?Last Taken ?Type levonorgestrel (Mirena) 1 insert intrauterine ONCE 08/13/17 08/07/17 07:17 History Allergy/AdvReac Type Severity Reaction Status Date / Time Penicillins Allergy unknown Verified 03/18/25 08:21 Family History Mother Diabetes Aunt Colon cancer Father Lymphona, mantle cell, inguinal region/lower limb Surgical History Hx of knee surgery History of delivery Social History household members: other details: Julian number of children: 3 current occupational status: employed 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 Physical Exam Const alert and oriented x3 Orientation / Consciousness: awake HEENT dentition normal Neck full ROM Resp normal respiratory effort, normal air movement and clear to auscultation bilaterally Auscultation: clear to auscultation bilaterally Cardio regular rate, regular rhythm and no murmurs Back/Spine normal ROM Neuro oriented x3 and moves all extremities
--- NOTE | 2025-04-01 07:10 | PCM.HP.STD ---
HPI - General HPI Narrative EVENS RINCON, is a 44 F who presents for left knee arthroscopy, partial medial meniscectomy. no change to h and p. rab, post op instructions, narcotic counselling. left knee marked. ok to proceed. no further questions or concerns. MR#: [id number] Acct: [id number] Name: EVENS RINCON Rep #: [id number] : 1980 Provider: Dr. Zaki Jay MD Age/Sex: 44/F [place] [facility] [place] Status: Signed Intake Vital Signs 01/28/2508:45 Height 5 ft 4 in Weight: 170 lb BMI 29.2 Intake Visit Reasons: LEFT KNEE Chief Complaint: MRI review Accompanied by: Self Allergies Penicillins Allergy (Verified 02/17/25 15:15) unknown Medications ?Medication ?Instructions ?Recorded ?Confirmed ?Type levonorgestrel (Mirena) 1 insert intrauterine ONCE 08/13/17 02/17/25 History PFSH Medical History (Updated 02/17/25 @ 15:20 by Zaki Jay MD) Degenerative tear of left medial meniscus Osteoarthritis of left knee Left knee pain Abnormal mammogram Abnormal ultrasound of breast ACL injury tear PCOS (polycystic ovarian syndrome) Gestational diabetes Surgical History History of delivery Family History Mother DiabetesAunt Colon cancerFather Lymphona, mantle cell, inguinal region/lower limb Social History household members: other details: Julian number of children: 3 current occupational status: employed 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 Zaki Jay MD 02/17/25 1013. Part of today?s visit was documented by [ ], acting as scribe. EVENS RINCON is a 44 year old F here today for FU MRI L knee . Patient has tried now over 6 weeks of formal therapy as well as 2 injections with minimal relief. The patient still complains about medial sided knee pain and quite a bit of mechanical symptoms like catching and locking of the knee. Supplemental Info [facility] [address], [place] [id number] Lower Ext Joint Only (Routine) MR#: [id number] Acct: [id number] Name: EVENS RINCON Rep #: [id number] : 1980 F 44 From: Osiris Carmichael MD PCP: Dr. Linda Alcantar, DO Status: REG CLI Study: Lower Ext Joint Only (Routine) Date of Exam: 02/14/25 Exam# [id number] Ordering Dr: Zaki Jay MD PROCEDURE: LOWER EXT JOINT ONLY (ROUTINE) 02/14/2025 REASON FOR EXAM: PAIN, FAILED 2 INJECTIONS, ?MENISCUS TEAR TECHNIQUE: MRI of the left lower Extremity. Multiplanar and multisequence images were obtained without IV contrast administration. COMPARISON: None. FINDINGS: Mild tricompartmental changes of degenerative joint disease, more prominent in the medial tibiofemoral compartment. Associated mild degenerative reactive periarticular bone marrow edema of the medial tibiofemoral compartment. Mild suprapatellar knee joint effusion. Uncomplicated Ortiz's cyst measuring 6.2 x 3.4 cm. Uncomplicated extra-articular synovial/ganglion cyst arising from the most proximal aspect of the lateral head of the gastrocnemius muscle measuring 2.2 x 1.4 cm. Meniscal degeneration. Radial tear in the body of the medial meniscus reaching the tibial articular surface contour. Mild medial extrusion of the ruptured medial meniscus. Prepatellar/infrapatellar bursitis. Grade 2 changes of chondromalacia patella. The remaining visualized osseous elements are intact with no evidence of fracture or dislocation. The anterior and posterior cruciate ligaments are intact and demonstrate no signal abnormality. The medial and lateral collateral ligaments and ligamentous complex are intact. The patellar retinaculum and quadriceps tendon complex and the patellar tendon are intact with no evidence of signal abnormality. The osseous structures demonstrate normal marrow signal characteristics. MRI/Lower Ext Joint Only (Routine) IMPRESSION: Mild tricompartmental changes of degenerative joint disease, more prominent in the medial tibiofemoral compartment. Associated mild degenerative reactive periarticular bone marrow edema of the medial tibiofemoral compartment. Mild suprapatellar knee joint effusion. Uncomplicated Ortiz's cyst measuring 6.2 x 3.4 cm. Uncomplicated extra-articular synovial/ganglion cyst arising from the most proximal aspect of the lateral head of the gastrocnemius muscle measuring 2.2 x 1.4 cm. Meniscal degeneration. Radial tear in the body of the medial meniscus reaching the tibial articular surface contour. Mild medial extrusion of the ruptured medial meniscus. Prepatellar/infrapatellar bursitis. Grade 2 changes of chondromalacia patella. Reading Location: [place] [address] I independently reviewed the imaging. Concur with radiologist report. Coding Level of Care Code Off vis,est,level 4 Diagnoses Left knee pain M25.562 Osteoarthritis of left knee M17.12 Degenerative tear of left medial meniscus M23.204 Assessment and Plan Assessment and Plan (1) Left knee pain: Status: Acute Plan: 44-year-old female with left knee pain. They do have a signs of moderate or moderate osteoarthritis primarily the medial compartment as well as subchondral edema as well as a degenerative appearing meniscus tear with extrusion. That being said went over the diagnosis prognosis over treatment options. The patient has tried extensive conservative management including therapy and 2 cortisone injections. The patient continues to experience mechanical symptoms including locking and catching and medial sided joint line tenderness. The options here surgically would be either partial knee arthroplasty which would more reliably take care of the arthritis or knee arthroscopy for partial medial meniscectomy and debridement. The patient wants a intermediate procedure. Did let them know that this would not take care of the pain from the osteoarthritis and may only provide temporary relief but hopefully may take care of the mechanical symptoms the patient is experiencing. Delay the need for arthroplasty ideally. The recovery for that is typically 2 weeks on crutches and 6 weeks before mostly recovered. The patient does have implanted contraceptive device that is hormone eluding so we will plan on putting the patient on aspirin twice daily for VTE prophylaxis both postoperatively. They understood and wished to go ahead with left knee arthroscopy, partial medial meniscectomy. Pros and cons risks and benefits were discussed with the patient including but not limited to infection, pain, stiffness, bleeding, damage to surrounding structures, neurovascular injury, recurrence or retear, failure or wear of hardware or fixation, instability, fracture, deep vein thrombosis and pulmonary embolism, anesthetic risks, , patient dissatisfaction, need for further surgery and other risks. Patient understood and wished to proceed with surgery, and signed the informed consent documentation. (2) Osteoarthritis of left knee: Status: Acute (3) Degenerative tear of left medial meniscus: Status: Acute Ortho Exam General General: Yes no acute distress Neurologic: Yes alert and Yes oriented x3 Psychologic: Yes reasonable and appropriate Left Knee Skin/Wound: Yes CDI, No ecchymosis, No erythema and No swelling 1+: Effusion Examination: Yes med jt line tenderness, Yes Lat jt line tenderness, No Crepitus, Yes Pain with flexion and Yes Nancy's Test [facility] Medical History Wears contact lenses Alcohol use Arthritis Non-smoker History of pain when walking Degenerative tear of left medial meniscus Osteoarthritis of left knee Left knee pain Abnormal mammogram Abnormal ultrasound of breast PCOS (polycystic ovarian syndrome) Gestational diabetes Home Medications ?Medication ?Instructions ?Recorded ?Last Taken ?Type levonorgestrel (Mirena) 1 insert intrauterine ONCE 08/13/17 08/07/17 07:17 History Allergy/AdvReac Type Severity Reaction Status Date / Time Penicillins Allergy unknown Verified 03/18/25 08:21 Family History Mother Diabetes Aunt Colon cancer Father Lymphona, mantle cell, inguinal region/lower limb Surgical History Hx of knee surgery History of delivery Social History household members: other details: Julian number of children: 3 current occupational status: employed 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 pets and animals: Yes leisure activities: exercise history of recent travel: No sexually active: Yes Smoking Status: Never smoker second hand exposure: No alcohol intake: current alcohol intake frequency: a few times a month diet: other well-balanced diet: daily or most days caffeine: Yes Type: coffee Number of servings: 1 what type of physical activity do you participate in: aerobics frequency: 3-4 times per week seatbelt use: always do you feel safe at home: Yes Vital Signs Vital Signs Vital Signs: 04/01/25 06:25 04/01/25 06:25 04/01/25 07:01 Temperature 99.0 F 99.0 F Temperature Source Temporal Pulse Rate 73 73 Respiratory Rate 14 14 Respiratory Pattern Bradypnea Blood Pressure 112/96 H 112/96 H Blood Pressure Mean 101 Blood Pressure Source Monitor Blood Pressure Position Sitting Blood Pressure Location Left Arm Pulse Ox 100 100 Oxygen Delivery Method Room Air Room Air Weight Weight: 167 lb 8.821 oz Body Mass Index (BMI) 28.8
[2025-04-01] MEDS: Epinephrine (1 mg/ml) 1 MG/ML VIAL (07:53)
--- NOTE | 2025-04-01 08:03 | OP.PCM_ITS ---
Problems Associated Problem List Diagnoses (1) Degenerative tear of left medial meniscus: (2) Osteoarthritis of left knee: Procedures Musculoskeletal [id number]-[id number]: Other Procedure See Report Operative Report (Standard) Operative Information Date of Procedure: 04/01/25 Pre-Operative Diagnosis: Left knee medial meniscus tear, osteoarthritis Post-Operative Diagnosis: Same Surgery/Procedure Performed: Left knee arthroscopy, partial medial meniscectomy, limited debridement rod cup filler: Yes Hand Method Lasting Machine Operator: sally Tasks completed by doctor's assistant: Retracting Additional assistant account executive?: No Type of Anesthesia: General and Local RN Documented Start/Stop Times: Operation Date: 04/01/25 07:30 Case Time Into Pre-Op 04/01/25 06:10 Anesthesia Start 04/01/25 07:28 Into Room 04/01/25 07:28 Out of Pre-Op 04/01/25 07:30 Procedure Start 04/01/25 07:46 Procedure Start Time: 07:46 Procedure Stop Time: 08:01 Select all DRAINS/GRAFTS/IMPLANTS that apply: None Estimated Blood Loss: 10 Specimen collected: No Description of surgery: Patient brought to the operating room theater. Placed supine on the table. General anesthesia induced. All bony prominences padded. SCD on the nonoperative leg. Tourniquet applied to the left thigh appropriately padded. Stress positioner to the patient's left side. Lower extremity prepped and draped in the usual sterile fashion over 3 minutes drying time prior to draping. 2 g IV Ancef administered prior to the start of the case. Preoperative timeout performed to confirm the site patient and the surgery. Began by elevating the limb inflated the tourniquet to 250 mmHg. Use standard anterolateral and anteromedial arthroscopy portals. Did a full diagnostic arthroscopy. There is a slight synovitis as well as hypertrophic retropatellar fat pad that I gently debrided. ACL and PCL appeared normal. There is grade 2 degenerative changes at the patellofemoral joint gently debrided the undersurface of the patella. Patella was centered in the groove. No loose bodies in the medial or lateral gutters. Entered the lateral compartment this was normal lateral meniscus was stable and solid to probing cartilage was only grade 1 changes in the lateral compartment. I then entered the medial compartment. The roots of the meniscus appear normal stable to probing. There is degenerative tear at the mid body as well as going towards the posterior horn of the medial meniscus. There is a slight radial tear and flipped fragment below the joint surface site on flipped to this and gently debrided back to stable margins. I removed approximately 5% of the total surface area of the meniscus. Grade 2 changes medial compartment both sides of the joint. There was no areas available for repair or necessitating this. The meniscus is stable after that. I gently debrided the lateral aspect of the medial tibial plateau at the osteophyte area on the MRI. I gently trephinated this area in the submeniscus area as well as just superior to this to stimulate healing in this area as well using a spinal needle. Arthroscopy pictures taken and saved onto the system throughout the case. Case terminated. Arthroscope withdrawn. Tourniquet let down hemostasis achieved. Portal sites cleaned with wet dry dressing closed with 3-0 Monocryl sutures. 10 cc of quarter percent bupivacaine was instilled in and around the soft tissues including around the portal sites. Steri-Strips Adaptic 4 x 4 gauze ABD pads and loosely wrapped Yobany bandage was placed. Patient woken up from the general anesthetic transferred off the operating room table taken to postanesthetic care unit in stable condition. All sponge needle instrument counts were correct no complications. Plan to the patient weightbearing as tolerated crutches change dressing in 1 to 2 days follow-up in the office within 2 weeks. cpt 66266, [id number] Surgical Findings: As above Complications Complications: No Admit VTE Documentation VTE Present on Admission: No VTE Mechan Device Prophylaxis: SCD's VTE Pharm Prophylaxis ordered?: Yes
--- NOTE | 2025-04-01 08:10 | EX.PCM.DISCH ---
Discharge Instructions Diet Discharge Diet: No restrictions Activity Discharge Activity: Return to Normal Activity Ice area for (Minutes): 10 Weight Bearing Status: Weight bearing as tolerated Lifting Restrictions: use crutches as needed for 1-2 weeks Keep extremity elevated above heart level: Operative Extremity Additional Activity Instructions:: ok for full ROM of the knee Dressing / Incision Call your doctor if your incision/area has: Continuous Slow Oozing, Sudden Increased Bleeding, Increased Pain/ Swelling, Increased Redness, Foul Smelling Discharge and Swelling at the incision site Call your doctor if you observe: Fever of 101 or Higher, Coldness, Increased Pain and Numbness or Tingling Change Dressing in: 2 days Cleanse incision/area with: Do not get Incision Wet Follow Up Care Please Follow Up With: Zaki Jay MD When: within 2 weeks Test Results: Test results from this visit will be discussed in further detail at your follow-up appointment, if applicable. Discharge Plan Admission Attending Provider: Zaki Jay Primary Care Provider: Linda Alcantar Instructions Patient Instructions: After Knee Arthroscopy Print Language: Slovenian Discharge Orders/Prescriptions Prescriptions: New oxycodone-acetaminophen [Endocet] 5-325 mg tablet 1 tab PO Q4H MDD 6 PRN (Reason: pain) 3 Days Qty: 14 0RF aspirin 81 mg capsule 81 mg PO BID MDD 2 14 Days Qty: 28 0RF No Action levonorgestrel [Mirena] 20 mcg/24 hr (5 years) intrauterine device 1 insert Intrauterine ONCE Referrals / Follow Up: Linda Alcantar DO [Primary Care Provider] - Zaki Jay MD [Med Staff - Active Staff] - Disposition Disposition (needs filled in before D/C Order can be placed): Home, Self Care
--- NOTE | 2025-04-01 08:21 | SUR.PHASEI ---
oral airway removed
--- NOTE | 2025-04-01 09:15 | PCM.POST.ANE ---
Anesthesia: Postop Eval I Current Vital Signs Temperature: 96.8 F Pulse Rate: 88 Blood Pressure: 117/80 Respiratory Rate: 18 Pulse Ox: 98 Oxygen Delivery Method: Room Air Assessment Airway patent: Yes Spontaneous unlabored respirations: Yes nausea: No Vomiting: No Anesthesia Complication: No Fluid Hydration Crystalloid volume administer (ml): 500 Total IV fluid infused: 500 Progress Note Anesthesia document: Postop Eval 1 completed: Yes
--- NOTE | 2025-04-01 19:11 | POSTOPAN2_ITS ---
Anesthesia Postop Eval I Sum Postop Eval Completion status Anesthesia document: Postop Eval 1 completed: Yes Anesthesia Postop Eval I Summary Anesthesia Postop Eval I Summary: Anesthesia Postop Eval I: Assessment Summary Airway patent Yes 04/01/25 09:16 STYLIST [email or web address] Spontaneous unlabored Yes 04/01/25 09:16 STYLIST [email or web address].[email or web address] respirations Mental status nausea No 04/01/25 09:20 STYLIST [email or web address] Vomiting No 04/01/25 09:20 STYLIST [email or web address].[email or web address] Anesthesia Postop Eval I: Fluid Summary Crystalloid volume administer 500 04/01/25 09:20 STYLIST [email or web address] (ml) Colloids volume administered ( ml) Blood Product volume administered (ml) Total IV fluid infused 500 04/01/25 09:20 STYLIST [email or web address].[email or web address] Anesthesia Postop Eval I: Summary Notes Anesthesia Complication No 04/01/25 09:20 STYLIST [email or web address].[email or web address] Anesthesia Complication Comment: Post-operative progress note Anesthesia: Postop Eval II Evaluation Mental status: Awake Pain Level: 2 nausea: No Vomiting: No
--- NOTE | 2025-04-01 19:11 | PCM.POSTANE2 ---
Anesthesia Postop Eval I Sum Postop Eval Completion status Anesthesia document: Postop Eval 1 completed: Yes Anesthesia Postop Eval I Summary Anesthesia Postop Eval I Summary: Anesthesia Postop Eval I: Assessment Summary Airway patent Yes 04/01/25 09:16 WORKERS COMPENSATION [email or web address] Spontaneous unlabored Yes 04/01/25 09:16 WORKERS COMPENSATION ATTORNEY.[email or web address] respirations Mental status nausea No 04/01/25 09:20 WORKERS COMPENSATION [email or web address] Vomiting No 04/01/25 09:20 WORKERS COMPENSATION [email or web address].[email or web address] Anesthesia Postop Eval I: Fluid Summary Crystalloid volume administer 500 04/01/25 09:20 WORKERS COMPENSATION [email or web address].[email or web address] (ml) Colloids volume administered ( ml) Blood Product volume administered (ml) Total IV fluid infused 500 04/01/25 09:20 WORKERS COMPENSATION [email or web address].[email or web address] Anesthesia Postop Eval I: Summary Notes Anesthesia Complication No 04/01/25 09:20 WORKERS COMPENSATION [email or web address].[email or web address] Anesthesia Complication Comment: Post-operative progress note Anesthesia: Postop Eval II Evaluation Mental status: Awake Pain Level: 2 nausea: No Vomiting: No
== END 2025-04-01 09:23 | disposition home or self-care (01) ==
LOC: SDC 05:56 → AC 06:06
PROVIDERS: PCP Family Medicine; Referring Provider Orthopaedic Surgery Sports Medicine; Visit Provider Orthopaedic Surgery Sports Medicine
PROC: (CPT 29870; principal; 2025-04-01 07:10)
DX: M23.304 Other meniscus derangements, unspecified medial meniscus, left knee (principal); M17.12 Unilateral primary osteoarthritis, left knee; M65.962 Unspecified synovitis and tenosynovitis, left lower leg; Z88.0 Allergy status to penicillin; Z79.82 Long term (current) use of aspirin
CPT/HCPCS: 29881; 01400; J2405